=== PATIENT | male | born 1950 | race Caucasian/White ===

== ENCOUNTER 2016-04-16 08:15 | Inpatient (IN) | payer MEDICARE, OTHER ==
--- NOTE | 2016-04-16 09:31 | RAD ---
INDICATION: Weakness. COMPARISON: There are no prior studies available for comparison. TECHNIQUE: A portable view of the chest was obtained. FINDINGS: The heart appears mildly enlarged. There is increased density in the right cardiophrenic angle likely representing a prominent pericardial fat pad although a mass cannot be excluded. No pleural effusion is seen. IMPRESSION: INCREASED DENSITY IN THE RIGHT CARDIOPHRENIC ANGLE LIKELY REPRESENTING A PROMINENT PERICARDIAL FAT PAD ALTHOUGH A MASS CANNOT BE EXCLUDED. RECOMMEND A CT OF THE CHEST WITH CONTRAST FOR FURTHER EVALUATION.
[2016-04-16 09:49] LABS: Hematocrit 41 % (35-47); Mean Corpuscular HGB Conc 32 g/dl (31-36); Mean Corpuscular Hemoglobin 29 pg (27-31); Mean Corpuscular Volume 92 fL (80-97); Mean Platelet Volume 8 um3 (7.4-10.4); Red Blood Count 4.48 10^6/ul (4.0-5.4); Red Cell Distribution Width 16 % (10.5-15); White Blood Count 10.1 10^3/ul (3.5-10.8)
[2016-04-16 09:50] LABS: Add Diff/Slide Review? Slide Review Added; Comments Flag Yes
[2016-04-16 09:53] LABS: Albumin 3.7 g/dL (3.2-5.2); C Reactive Protein 11.02 mg/L (< 5.00); Calcium 9.6 mg/dL (8.6-10.3); EGFR Non-African American 94.8 (>60); Globulin 3.5 g/dL (2-4); Magnesium 2.1 mg/dL (1.9-2.7); Potassium 4.3 mmol/L (3.5-5.0); Total Bilirubin 0.4 mg/dL (0.2-1.0); Total Protein 7.2 g/dL (6.4-8.9)
[2016-04-16 09:56] LABS: Troponin I 0.04 ng/mL (<0.04)
[2016-04-16 10:14] LABS: Urine Bacteria Absent (Absent); Urine Bilirubin Negative (Negative); Urine Glucose Negative (Negative); Urine Nitrite Negative (Negative)
[2016-04-16 10:31] LABS: TSH (Thyroid Stimulating Horm) 1.03 mcIU/mL (0.34-5.60)
--- NOTE | 2016-04-16 10:42 | ED ---
Daniella Ron Janilya, scribed for Austin Victor MD on 04/16/16 at 0828 . HPI Diabetic - HPI Summary HPI Summary: A 65 y/o male came in to [facility] presenting w/ a gradual onset of constant weakness for the past couple days. Pt states he hasn't been feeling well. In addition to weakness, he reports confusion and dizziness. Another complaint is weakness, numbness, and stiffness of legs. Pt is usually sedentary. Pt denies vomiting. Pt thinks that his sugar might be "off". Pt is normally on 4L of O2. Pt is a new resident of [facility]; he's been there for only a week. PMHx HTN, DM, asthma, COPD, hay fever. No PMHx CHF. - History Of Current Complaint Chief Complaint: EDGeneral Time Seen by Provider: 04/16/16 08:19 Hx Obtained From: Patient Onset/Duration: Gradual Onset, Lasting Days, Still Present Timing: Constant Severity Initially: Moderate Severity Currently: Moderate Associated Signs & Symptoms: Negative - Allergies/Home Medications Allergies/Adverse Reactions: Allergies Allergy/AdvReac Type Severity Reaction Status Date / Time Cimetidine Allergy Hives Verified 04/16/16 08:50 Erythromycin Allergy Hives Verified 04/16/16 08:50 Fosinopril Allergy Rash Verified 04/16/16 08:50 Iodine Allergy Rash Verified 04/16/16 08:50 Lisinopril Allergy Rash And Verified 04/16/16 08:50 Itching Penicillin G Allergy Rash Verified 04/16/16 08:50 Sulfa Antibiotics Allergy Hives Verified 04/16/16 08:50 Tomato Allergy Swelling Verified 04/16/16 08:50 ivp dye Allergy Hives Uncoded 04/16/16 08:50 PMH/Surg Hx/FS Hx/Imm Hx Previously Healthy: Yes Endocrine/Hematology History: Reports: Hx Diabetes Cardiovascular History: Reports: Hx Hypertension Denies: Hx Congestive Heart Failure Respiratory History: Reports: Hx Asthma, Hx Chronic Obstructive Pulmonary Disease (COPD) Infectious Disease History: No Infectious Disease History: Denies: Traveled Outside the [place] in Last 30 Days - Family History Known Family History: Positive: Diabetes - mother, Respiratory Disease - PE - mother - Social History Occupation: Retired Lives: At [facility] Smoking Status (MU): Former Smoker Review of Systems Negative: Vomiting Neurological: Other - Stiffness of legs. Confusion and dizziness. Positive: Weakness, Numbness - of legs All Other Systems Reviewed And Are Negative: Yes Physical Exam Triage Information Reviewed: Yes Vital Signs On Initial Exam: Initial Vitals Temp Pulse Resp BP Pulse Ox 98.2 F 88 18 145/87 94 04/16/16 08:16 04/16/16 08:16 04/16/16 08:16 04/16/16 08:16 04/16/16 08:16 Vital Signs Reviewed: Yes Appearance: Positive: Well-Appearing, No Pain Distress Skin: Positive: Warm, Skin Color Reflects Adequate Perfusion, Dry Head/Face: Positive: Normal Head/Face Inspection Eyes: Positive: EOMI, EDMUND ENT: Positive: Normal ENT inspection Neck: Positive: Supple, Nontender Respiratory/Lung Sounds: Positive: Clear to Auscultation, Breath Sounds Present , Wheezes - Occasional, no acute distress. Cardiovascular: Positive: RRR Abdomen Description: Positive: Nontender, Soft Bowel Sounds: Positive: Present Musculoskeletal: Positive: Normal, Strength/ROM Intact, Other - Erythema and pedal edema bilaterally. Neurological: Positive: Normal, Sensory/Motor Intact, Alert, Oriented to Person Place, Time Psychiatric: Positive: Affect/Mood Appropriate Diagnostics - Vital Signs Vital Signs Temp Pulse Resp BP Pulse Ox 04/16/16 08:16 98.2 F 88 18 145/87 94 - Laboratory Lab Results: Lab Results 04/16/16 04/16/16 04/16/16 Range/Units 09:25 09:25 09:25 WBC 10.1 (3.5-10.8) 10^3/ul RBC 4.48 (4.0-5.4) 10^6/ul Hgb 13.0 (12.0-16.0) g/dl Hct 41 (35-47) % MCV 92 (80-97) fL MCH 29 (27-31) pg MCHC 32 (31-36) g/dl RDW 16 H (10.5-15) % Plt Count 183 (150-450) 10^3/ul MPV 8 (7.4-10.4) um3 Neut % (Auto) 83.0 (38-83) % Lymph % (Auto) 9.0 L (25-47) % [place] % (Auto) 5.8 (1-9) % Eos % (Auto) 1.0 (0-6) % Baso % (Auto) 1.2 (0-2) % Absolute Neuts (auto) 8.4 H (1.5-7.7) 10^3/ul Absolute Lymphs (auto) 0.9 L (1.0-4.8) 10^3/ul Absolute Monos (auto) 0.6 (0-0.8) 10^3/ul Absolute Eos (auto) 0.1 (0-0.6) 10^3/ul Absolute Basos (auto) 0.1 (0-0.2) 10^3/ul Absolute Nucleated RBC 0 10^3/ul Nucleated RBC % 0 INR (Anticoag Therapy) 0.94 (0.89-1.11) APTT 27.5 (26.0-36.3) seconds D-Dimer, Quantitative 336 H (Less Than 230) ng/mL Sodium 138 (133-145) mmol/L Potassium 4.3 (3.5-5.0) mmol/L Chloride 91 L (101-111) mmol/L Carbon Dioxide 46 H* (22-32) mmol/L Anion Gap 1 L (2-11) mmol/L BUN 12 (6-24) mg/dL Creatinine 0.63 (0.51-0.95) mg/dL Est GFR ( Amer) 122.0 (>60) Est GFR (Non-Af Amer) 94.8 (>60) BUN/Creatinine Ratio 19.0 (8-20) Glucose 123 H (70-100) mg/dL Lactic Acid (0.5-2.0) mmol/L Calcium 9.6 (8.6-10.3) mg/dL Magnesium 2.1 (1.9-2.7) mg/dL Total Bilirubin 0.40 (0.2-1.0) mg/dL AST 15 (13-39) U/L ALT 17 (7-52) U/L Alkaline Phosphatase 80 (34-104) U/L Total Creatine Kinase 72 (10-223) U/L CK-MB (CK-2) 6.3 (0.6-6.3) ng/mL Troponin I 0.04 H* (<0.04) ng/mL C-Reactive Protein 11.02 H (< 5.00) mg/L B-Natriuretic Peptide ( - 100) pg/mL Total Protein 7.2 (6.4-8.9) g/dL Albumin 3.7 (3.2-5.2) g/dL Globulin 3.5 (2-4) g/dL Albumin/Globulin Ratio 1.1 (1-3) Lipase 17 (11.0-82.0) U/L TSH 1.03 (0.34-5.60) mcIU/mL Urine Color Urine Appearance Urine pH (5-9) Ur Specific [place] (1.010-1.030) Urine Protein (Negative) Urine Ketones (Negative) Urine Blood (Negative) Urine Nitrate (Negative) Urine Bilirubin (Negative) Urine Urobilinogen (Negative) Ur Leukocyte Esterase (Negative) Urine WBC (Auto) (Absent) Urine RBC (Auto) (Absent) Ur Squamous Epith Cells (Absent) Urine Bacteria (Absent) Urine Glucose (Negative) Urine Ascorbic Acid (Negative) 04/16/16 04/16/16 04/16/16 Range/Units 09:25 09:25 10:00 WBC (3.5-10.8) 10^3/ul RBC (4.0-5.4) 10^6/ul Hgb (12.0-16.0) g/dl Hct (35-47) % MCV (80-97) fL MCH (27-31) pg MCHC (31-36) g/dl RDW (10.5-15) % Plt Count (150-450) 10^3/ul MPV (7.4-10.4) um3 Neut % (Auto) (38-83) % Lymph % (Auto) (25-47) % [place] % (Auto) (1-9) % Eos % (Auto) (0-6) % Baso % (Auto) (0-2) % Absolute Neuts (auto) (1.5-7.7) 10^3/ul Absolute Lymphs (auto) (1.0-4.8) 10^3/ul Absolute Monos (auto) (0-0.8) 10^3/ul Absolute Eos (auto) (0-0.6) 10^3/ul Absolute Basos (auto) (0-0.2) 10^3/ul Absolute Nucleated RBC 10^3/ul Nucleated RBC % INR (Anticoag Therapy) (0.89-1.11) APTT (26.0-36.3) seconds D-Dimer, Quantitative (Less Than 230) ng/mL Sodium (133-145) mmol/L Potassium (3.5-5.0) mmol/L Chloride (101-111) mmol/L Carbon Dioxide (22-32) mmol/L Anion Gap (2-11) mmol/L BUN (6-24) mg/dL Creatinine (0.51-0.95) mg/dL Est GFR ( Amer) (>60) Est GFR (Non-Af Amer) (>60) BUN/Creatinine Ratio (8-20) Glucose (70-100) mg/dL Lactic Acid 1.0 (0.5-2.0) mmol/L Calcium (8.6-10.3) mg/dL Magnesium (1.9-2.7) mg/dL Total Bilirubin (0.2-1.0) mg/dL AST (13-39) U/L ALT (7-52) U/L Alkaline Phosphatase (34-104) U/L Total Creatine Kinase (10-223) U/L CK-MB (CK-2) (0.6-6.3) ng/mL Troponin I (<0.04) ng/mL C-Reactive Protein (< 5.00) mg/L B-Natriuretic Peptide 133 H ( - 100) pg/mL Total Protein (6.4-8.9) g/dL Albumin (3.2-5.2) g/dL Globulin (2-4) g/dL Albumin/Globulin Ratio (1-3) Lipase (11.0-82.0) U/L TSH (0.34-5.60) mcIU/mL Urine Color Yellow Urine Appearance Clear Urine pH 7.0 (5-9) Ur Specific [place] 1.020 (1.010-1.030) Urine Protein 2+(100 mg/dl) H (Negative) Urine Ketones Negative (Negative) Urine Blood Negative (Negative) Urine Nitrate Negative (Negative) Urine Bilirubin Negative (Negative) Urine Urobilinogen Negative (Negative) Ur Leukocyte Esterase Negative (Negative) Urine WBC (Auto) Absent (Absent) Urine RBC (Auto) Absent (Absent) Ur Squamous Epith Cells Present H (Absent) Urine Bacteria Absent (Absent) Urine Glucose Negative (Negative) Urine Ascorbic Acid * H (Negative) Result Diagrams: 04/16/16 09:25 04/16/16 09:25 Lab Statement: Any lab studies that have been ordered have been reviewed, and results considered in the medical decision making process. Diabetic Course/Dx - Course Assessment/Plan: ADMIT HOSPITALIST STABLE - Diagnoses Provider Diagnoses: Weakness, COPD (chronic obstructive pulmonary disease), Troponin level elevated Discharge - Discharge Plan Condition: Stable Disposition: ADMITTED TO [facility] Referrals: No Primary Care Phys,NOPCP [Primary Care Provider] - The documentation as recorded by the Daniella montes Janilya accurately reflects the service I personally performed and the decisions made by me, Austin Victor MD.
[2016-04-16] MEDS ORDERED: Ondansetron INJ* 2 MG/ML VIAL IV PRN (11:14)
[2016-04-16] MEDS ORDERED: Dextrose 50% Syringe 50 ML* 25 GM/50 ML SYRINGE IV PUSH PRN (11:14)
[2016-04-16] MEDS ORDERED: Albuterol 2.5 MG/3 ML NEB.SOL* (0.083%) INH PRN (11:14)
[2016-04-16] MEDS ORDERED: Bisacodyl EC TAB* 5 MG PO PRN (11:17)
[2016-04-16] MEDS ORDERED: Bisacodyl SUPP* 10 MG SUPP PR PRN (11:17)
[2016-04-16] MEDS ORDERED: Spiriva Inhaler DEVICE* 1 EACH DEVICE INH ONE (12:00)
[2016-04-16] MEDS: Insulin LISPRO* 1 UNITS UNIT SUBCUT SCH ×2 (12:29→18:01)
[2016-04-16] MEDS: Heparin VIAL(*) 5000 UNITS/ML VIAL (FIVE THOUSAND) SUBCUT SCH ×2 (12:57→20:48)
[2016-04-16 13:57] LABS: PCO2 Arterial 86 mmHg (35-45)
--- NOTE | 2016-04-16 17:04 | HP ---
ATTENDING PHYSICIAN ADDENDUM NOW INCLUDED ON THIS REPORT HISTORY AND PHYSICAL: DATE OF ADMISSION: 04/16/16 PRIMARY CARE PROVIDER: [facility]. ATTENDING PHYSICIAN WHILE IN THE HOSPITAL: Dr. Jessica Miranda *(report dictated by Reynold Rodríguez NP). CHIEF COMPLAINT: 1. Not feeling well. 2. Dizziness. 3. Shortness of breath. HISTORY OF PRESENTING ILLNESS: Mr. Lam is a 65-year-old male patient. He has a history of hyperlipidemia, hypertension, diabetes, GERD, and a history of COPD. He apparently has been at [facility] now for the last 10 days. He recently was transferred there from [facility] in [place]. He went to [facility] from [place]. [place] went to the [place] from [facility] in [place] and before Assisted Living, he was in [place]. He states that he has been in and out of the hospital for the last several months. He spent 3 weeks in the [place] most recently. He comes in today because he woke up sweating around 4 in the morning. He states that he just was not feeling well. He was aching in his legs. He was aching in his abdomen. He felt short of breath. He felt dizzy and lightheaded. He says he stood up and felt like he was going to faint but he did not. He says that he felt short of breath, it got progressively worse over the couple of hours and he requested to come into the hospital to be evaluated. He said yesterday he was feeling well, he has not had any other signs like chest pain. There has been no cough recently, no runny nose, no fevers or chills. He denies having any abdominal discomfort now but he is feeling better. He denied having any chest discomfort. He denied having any fevers or chills. He states he just ached all over today starting early this morning and getting progressively worse over the last couple of hours. So he came into the ER. It was noted according to the patient that his O2 levels were very low. He appeared to be hypoxic according to him. In addition to that, it was also noted that his oxygen was at 3 L and he normally was 4 which is down from 10 L. The patient requested to come into the hospital. He was evaluated here in the ED. It was noted that his troponin was elevated and his CO2 was markedly elevated. Hospitalist service was asked to evaluate for admission. PAST MEDICAL HISTORY: Significant for: 1. Hyperlipidemia. 2. Diabetes. 3. Hypertension. 4. GERD. 5. COPD. PAST SURGICAL HISTORY: 1. He has had a cervical laminectomy. 2. Hernia repair. 3. Appendectomy. 4. Tonsillectomy. HOME MEDICATIONS: Include: 1. Albuterol 1 neb every 4 hours as needed. 2. Tylenol 650 mg p.o. every 6 hours as needed. 3. Dulcolax 10 mg p.o. daily as needed. 4. Chloraseptic lozenges 1 lozenge t.i.d. as needed. 5. Dulcolax suppository 10 mg p.r. daily as needed. 6. Lantus 48 units subcu at bedtime. 7. Heparin 5000 unit subcu q. 8 hours. 8. Lasix 80 mg daily. 9. Metoprolol 37.5 mg daily. 10. Miconazole, 1 application topically b.i.d. 11. Abilify 20 mg daily. 12. Aspirin 81 mg daily. 13. Symbicort 2 puffs inhaled b.i.d. 14. Colace 100 mg p.o. b.i.d. 15. Multivitamin 1 tablet p.o. daily., 16. Prilosec 40 mg daily. 17. Spiriva 1 capsule inhaled daily. 18. Crestor 20 mg daily. ALLERGIES: His allergies to medications include CIMETIDINE, ERYTHROMYCIN, FOSINOPRIL, IODINE, LISINOPRIL, PENICILLIN, SULFA, TOMATO and IV DYE. FAMILY HISTORY: His mother had heart failure. His father had a history of cancer. SOCIAL HISTORY: He is a former smoker. He quit about a month ago. He was smoking about 3 packs a day. He lives in [facility]. Surrogate decision maker is his brother. REVIEW OF SYSTEMS: There is no documented fever. He denied any significant weight change. There was no double vision. He denies having any ear discharge. There is no rhinorrhea, no sore throat. No thyroid enlargement. He denied any chest pain. There was shortness of breath. There was some abdominal discomfort but no nausea or vomiting. There was no dysuria, no frequency, no loss of consciousness, no pruritus, and no skin ulcerations. Review of 14 systems completed. All others were negative. PHYSICAL EXAMINATION GENERAL: Mr. Lam is a 65-year-old male patient. He appears to be chronically ill- appearing. He is sitting in the ER stretcher. He does not appear to be in any acute respiratory distress. VITAL SIGNS: Reveals blood pressure 145/69 with a pulse of 86, respirations were 22, O2 sat 95%, temperature 98.2. HEENT: Head: Atraumatic and normocephalic. Eyes: EOMs intact. Sclerae intact , not pale. Throat: Oral mucosa appears to be dry. No oropharyngeal erythema. NECK: Supple. LUNGS: Diminished but there was no wheezes, rales or rhonchi. HEART: S1, S2. Regular rate and rhythm. No murmurs, rubs or gallops. ABDOMEN: Soft, flat, nontender. He did have ecchymosis noted to the abdomen from heparin shots. EXTREMITIES: Pulses were 2+ throughout. He had no peripheral edema. He was able to move all 4 extremities with 5/5 strength. NEUROLOGIC: He is awake, he is alert. He is oriented x3. His tongue is midline. His organ tuner were equal. He had no gross focal deficits. SKIN: Intact. DIAGNOSTIC STUDIES/LAB DATA: Labs today revealed WBC of 10.1, RBC of 4.48, hemoglobin of 13.0, hematocrit of 41, and platelet count of 183. His INR was 0.94, PTT was 27.5. D-dimer is 336. Sodium was 138, potassium was 4.3, chloride of 91, his bicarb was 46, BUN was 12 , his creatinine was 0.63, his glucose was 123. His lactate was 1.0, calcium 9.6, mag was 2.1, total bili 0.4, AST 15, ALT 17, alk phos 80. CK was 72, CK- MB was 6.3. Troponin was 0.04. CRP 11. Albumin was 3.7. TSH was 1.03. Urine was obtained. It showed 2+ protein. He had a chest x-ray which showed increased density in the right cardiophrenic angle likely representing a prominent pericardial fat pad although mass cannot be excluded. Recommended CT of the chest with contrast for further evaluation. He had a EKG obtained today which showed right bundle branch block, rate of 82, no ST elevations or T-wave inversions were noted. Old medical records were reviewed. ASSESSMENT AND PLAN: Mr. Lam is a 65-year-old male patient with multiple medical problems coming into the ER today with complaints of pain, shortness of breath and abdominal discomfort. On evaluation it was felt that he had indeterminate troponin, his D-dimer was mildly elevated as well. Hospitalist service was asked to evaluate for admission. He is admitted under observation status for: 1. Shortness of breath and weakness. I suspect that his oxygen being down at 3 L may have been the culprit. The patient does state that his oxygen level is a little low which certainly could explain him feeling short of breath, that could cause him demand ischemia, troponin is elevated which I think is probably most likely the culprit. I think minimally we need to cycle his troponins. He may need a sleep apnea testing and study in the outpatient setting. He may benefit from positive pressure at night to help him reduce the amount of hypoxia and strain on his heart but for tonight, we will monitor him on telemetry and cycle his troponins and keep him on the 4 L and we will continue to follow. I will check his orthostatic blood pressures as well. 2. Indeterminate D-dimer. Again, I think that the pulmonary embolism is likely. He is on heparin subtherapeutic q. 8 hours for DVT prevention. He has an allergy to IV dye. If he has any more episodes of hypoxia, we can consider getting a V/Q scan tomorrow but we will monitor for the time being. He is not tachycardic but shortness of breath is now gone and I think we can monitor for the time being. 3. Question of mass on chest x-ray. Again, this could be worked up in the outpatient setting. He would need a CT with contrast. Again, he will need to be premedicated for this and this could be done in the outpatient setting and he needs to be noted by the [facility] and the primary. 4. Hyperlipidemia. Continue statin therapy. 5. Hypertension. Continue his meds prescribed. 6. Elevated CO2 level. It is probably related to combination of his COPD. In addition to this, he was on a pretty high dose of diuretics. I have cut back on his diuretics to 40 mg from 80 and we will monitor. 7. Chronic obstructive pulmonary disease. Continue his Spiriva, Symbicort and p.r.n. nebs. 8. Diabetes. He is on lispro sliding scale and Lantus. 9. Gastroesophageal reflux disease. Continue PPI therapy. 10. DVT prophylaxis. We will continue with the heparin subcu q. 8 hours. 11. Code status. Full code. 12. Fluid, electrolytes, and nutrition. He can have a heart healthy diet. TIME SPENT: Time spent on this admission was 60 minutes, greater than half the time was spent [id number] with the patient, obtaining my history of physical; the other half time was spent going over the plan of care with the patient and implementing plan of care. I did discuss the plan of care with my attending Dr. Miranda; she is in agreement. I am also trying to get records from the [facility] to see what happened when he was last there. We are trying to get records from the [facility] to see what happened when he was last there. REYNOLD RODRÍGUEZ NP ADDENDUM: Alex Lam is a 65-year-old male with history of severe COPD, on oxygen at 4 L , who had been in and out of medical institutions for COPD exacerbations and in rehabs for the past several weeks. Most recently, he had been in [facility] for 10 days. He noted that his oxygen was not turned on at the right level at [facility]. He felt weak during that time and requested to come in to the ED for evaluation. His troponin is mildly elevated. It is most likely due to hypoxemia. He never had chest pain. He is going to be placed on overnight observation. He also appeared slightly prerenal and his Lasix was going to be held for today. For further details of the patient's presentation and plan, please see history and physical dictated by Reynold Rodríguez on 04/16/16 with which I agree. JESSICA MIRANDA MD CC: [facility] * [id number]/CPS #: [id number]/CPS #: [id number] [facility]THAMPTON HOSPITALBranden
--- NOTE | 2016-04-16 17:37 | HP ---
HISTORY AND PHYSICAL:* ADDENDUM: Alex Lam is a 65-year-old male with history of severe COPD, on oxygen at 4 L, who had been in and out of medical institutions for COPD exacerbations and in rehabs for the past several weeks. Most recently, he had been in [facility] for 10 days. He noted that his oxygen was not turned on at the right level at [facility]. He felt weak during that time and requested to come in to the ED for evaluation. His troponin is mildly elevated. It is most likely due to hypoxemia. He never had chest pain. He is going to be placed on overnight observation. He also appeared slightly prerenal and his Lasix was going to be held for today. For further details of the patient's presentation and plan, please see history and physical dictated by Reynold Rodríguez on 04/16/16 with which I agree. [id number]/[facility] #: [id number] MTDD
[2016-04-16] MEDS: ARIPiprazole TAB* 20 MG PO SCH (18:01)
[2016-04-16] MEDS: Docusate CAP* 100 MG PO SCH (20:46)
[2016-04-16] MEDS: Insulin GLARGINE(*) 1 UNITS UNIT SUBCUT SCH (20:48)
[2016-04-16] MEDS: Metoprolol Tartrate TAB* 25 MG PO SCH (20:48)
[2016-04-16] MEDS: Mometasone/Formoter 200/5 MDI INH SCH (20:56)
[2016-04-17] MEDS: Acetaminophen TAB* 325 MG PO PRN ×2 (00:44→07:47)
[2016-04-17] MEDS: Heparin VIAL(*) 5000 UNITS/ML VIAL (FIVE THOUSAND) SUBCUT SCH ×3 (05:27→20:59)
[2016-04-17 06:13] LABS: Hematocrit 42 % (42-52); Mean Corpuscular HGB Conc 31 g/dl (31-36); Mean Corpuscular Hemoglobin 29 pg (27-31); Mean Corpuscular Volume 93 fL (80-94); Mean Platelet Volume 9 um3 (7.4-10.4); Red Blood Count 4.46 10^6/ul (4.0-5.4); Red Cell Distribution Width 16 % (10.5-15); White Blood Count 9.2 10^3/ul (3.5-10.8)
[2016-04-17 06:19] LABS: Add Diff/Slide Review? Slide Review Added; Comments Flag Yes
[2016-04-17 06:28] LABS: BUN/Creatinine Ratio 19.7 (8-20); Calcium 9.7 mg/dL (8.6-10.3); EGFR African American 155.8 (>60); EGFR Non-African American 121.1 (>60); Potassium 4.8 mmol/L (3.5-5.0)
[2016-04-17] MEDS: Tiotropium CAP.INH* CAP.INH/18 MCG INH SCH (08:18)
[2016-04-17] MEDS: Mometasone/Formoter 200/5 MDI INH SCH ×2 (08:18→21:43)
[2016-04-17] MEDS: Metoprolol Tartrate TAB* 25 MG PO SCH ×2 (08:53→21:00)
[2016-04-17] MEDS: Insulin LISPRO* 1 UNITS UNIT SUBCUT SCH ×3 (08:53→17:25)
[2016-04-17] MEDS: Atorvastatin* 40 MG TAB PO SCH (08:53)
[2016-04-17] MEDS: Omeprazole CAP* 20 MG PO SCH (08:53)
[2016-04-17] MEDS: Docusate CAP* 100 MG PO SCH ×2 (08:54→20:59)
[2016-04-17] MEDS: Aspirin EC Low Dose* 81 MG TAB.EC PO SCH (08:54)
[2016-04-17] MEDS: Furosemide TAB* 40 MG PO SCH (08:54)
[2016-04-17] MEDS: ARIPiprazole TAB* 20 MG PO SCH (17:25)
[2016-04-17] MEDS: predniSONE TAB* 50 MG PO SCH ×2 (17:25→23:50)
--- NOTE | 2016-04-17 18:30 | PN ---
Subjective Date of Service: 04/17/16 Interval History: This is a 65 yo gentleman with severe COPD, schizoaffective disorder, h/o PE with IVC filter in place, IDDM, GERD, HTN, HLD who was recently discharged from a prolonged hospital stay at the [facility] to [facility]. Patient was admitted last night with complaints of SOB and dizziness. Today, patient reports that these symptoms have been present for nearly 1 month but have been getting progressively worse so he decided to mention them yesterday. He notes symptoms are worse with activity but still present at rest. Records arrived today from [facility] which were reviewed in detail. Patient required an ICU stay for acute respiratory failure secondary to COPD/CHF exacerbation. He was not intubated, but required rescue BiPAP. His O2 requirements prior to hospital stay were ~4L, and at time of admission (04/10/16 ) were assessed at 6L at rest and 10L with activity. This was thought to represent his new baseline. He was utilizing BiPAP at night with settings of 16 /6 that was recommended to be continued. He does have a h/o prior PE not currently anticoagulated d/t h/o pulmonary hemorrhage. He has an IVC filter in place. CTA was completed during that hospital stay that was negative for PE. There was also mention of severe LVH with diastolic failure, no echo report was sent. Serum bicarb was noted to be consistently 44-48 on labs. Today, nursing assessed orthostatic vitals signs. Patient complained of severe dizziness with this. O2 sats dropped in to mid 70s, it is unclear what his rate of supp O2 was at that time. No hypotension or tachycardia noted. Objective Active Medications: Acetaminophen (Tylenol Tab*) 650 mg PO Q4H PRN PRN Reason: FEVER/PAIN Last Admin: 04/17/16 07:47 Dose: 650 mg Albuterol (Ventolin 2.5 Mg/3 Ml Neb.Alecia*) 2.5 mg INH Q2H PRN PRN Reason: SOB/WHEEZING Aripiprazole (Abilify Tab*) 20 mg PO QPM [facility] Last Admin: 04/17/16 17:25 Dose: 20 mg Aspirin (Aspirin Ec Low Dose*) 81 mg PO DAILY [facility] Last Admin: 04/17/16 08:54 Dose: 81 mg Atorvastatin Calcium (Lipitor*) 40 mg PO DAILY [facility] Last Admin: 04/17/16 08:53 Dose: 40 mg Bisacodyl (Dulcolax Ec Tab*) 10 mg PO DAILY PRN PRN Reason: CONSTIPATION Bisacodyl (Dulcolax Supp*) 10 mg AK DAILY PRN PRN Reason: CONSTIPATION Dextrose (D50w Syringe 50 Ml*) 12.5 gm IV PUSH .FOR FS < 60 - SS PRN PRN Reason: FS < 60 Diphenhydramine HCl (Benadryl Po*) 50 mg PO ONCE ONE Stop: 04/18/16 06:01 Docusate Sodium (Colace Cap*) 100 mg PO BID [facility] Last Admin: 04/17/16 08:54 Dose: 100 mg Furosemide (Lasix Tab*) 40 mg PO DAILY [facility] Last Admin: 04/17/16 08:54 Dose: 40 mg Heparin Sodium (Porcine) (Heparin Vial(*)) 5,000 units SUBCUT Q8HR [facility] Last Admin: 04/17/16 14:17 Dose: 5,000 units Insulin Glargine (Lantus(*)) 48 units SUBCUT BEDTIME [facility] Last Admin: 04/16/16 20:48 Dose: 48 unit Insulin Human Lispro (Humalog*) 0 units SUBCUT AC [facility] PRN Reason: Protocol Last Admin: 04/17/16 17:25 Dose: 3 units Metoprolol Tartrate (Lopressor Tab*) 37.5 mg PO BID [facility] Last Admin: 04/17/16 08:53 Dose: 37.5 mg Mometasone Furoate/Formoterol Fumar (Dulera 200/5 Mdi*) 2 puff INH BID [facility] PRN Reason: Protocol Last Admin: 04/17/16 08:18 Dose: 2 puff Omeprazole (Prilosec Cap*) 40 mg PO DAILY [facility] Last Admin: 04/17/16 08:53 Dose: 40 mg Ondansetron HCl (Zofran Inj*) 4 mg IV Q6H PRN PRN Reason: NAUSEA Last Admin: 04/17/16 00:41 Dose: 4 mg Prednisone (Deltasone Tab*) 50 mg PO 1800,0000,0600 [facility] Stop: 04/18/16 06:01 Last Admin: 04/17/16 17:25 Dose: 50 mg Tiotropium Perkins (Spiriva Cap.Inh*) 1 cap INH DAILY [facility] Last Admin: 04/17/16 08:18 Dose: 1 cap.inh Vital Signs: Temp Pulse Resp BP Pulse Ox 97.4 F 75 42 137/54 83 04/17/16 08:30 04/17/16 16:15 04/17/16 08:30 04/17/16 16:15 04/17/16 10:43 Appearance: Well appearing but slightly bizarre affect in NAD Neck: NL Appearance and Movements; NL JVP Respiratory: Symmetrical Chest Expansion and Respiratory Effort, Clear to Auscultation Cardiovascular: NL Sounds; No Murmurs; No JVD, RRR Abdominal: NL Sounds; No Tenderness; No Distention Extremities: - - trace to 1+ LE edema Skin: No Rash or Ulcers Neurological: Alert and Oriented x 3 Result Diagrams: 04/17/16 05:48 04/17/16 05:48 Additional Lab and Data: . Diagnostic Imaging: CXR - density at R cardiophrenic angle, ?prominent fat pad. Assess/Plan/Problems-Billing Assessment: This is a 65 yo gentleman with schizoaffective d/o, severe COPD, diastolic HF, h /o PE with IVC filter inplace, IDDM, GERD, HTN, HLD who presents with complaints of dizziness and shortness of breath. - Patient Problems (1) Dizziness Comment: Likely due to hypoxia Concern for possible PE given his history He reports h/o hives with IV contrast, with premedicate for CTA tomorrow Given h/o pulmonary hemorrhage and relative stability at this time, will not empirically treat (2) COPD (chronic obstructive pulmonary disease) Comment: This does not seem to represent an acute exacerbation, but he has severe disease at baseline Recommend 6L supp O2 at rest and 10L for activity Requested pulm consult Cont inhaled therapies (3) Chronic respiratory failure Comment: Hypercarbic and hypoxic secondary to COPD Review of [facility] records show serum HCO3 consistently at 44-48, he is fully compensated at this time and this is likely his chronic state Ordered nighttime BiPAP at recommended settings of 16/6 (4) Chronic diastolic HF (heart failure) Comment: No evidence of acute exacerbation Mention of severe LVH on prior records Will obtain echo to establish baseline Cont home diuretic dose (5) IDDM (insulin dependent diabetes mellitus) Comment: Last HgbA1c 7.7% Cont home Lantus dose and additional SS Humalog coverage if necessary (6) History of pulmonary embolism Comment: IVC filter in place Also has a h/o pulmonary hemorrhage CTA pending for tomorrow, premedicating for h/o hives with IV contrast (7) Abnormal chest xray Comment: Density noted at R cardiac border CTA will help to define this further (8) Demand ischemia Comment: Mildly elevated trop, likely due to hypoxia (9) HTN (hypertension) Comment: Normotensive (10) HLD (hyperlipidemia) Status and Disposition: Patient requires continued hospital stay. Converted to inpatient. Pending CTA and pulm consult for tomorrow. Anticipate possible discharge in 1-2 days. If his stay at [facility] is planned to be semi-permanent, he will require established pulm and likely cardiac care locally.
[2016-04-17] MEDS: Insulin GLARGINE(*) 1 UNITS UNIT SUBCUT SCH (20:59)
[2016-04-18] MEDS: predniSONE TAB* 50 MG PO SCH (05:30)
[2016-04-18] MEDS: Heparin VIAL(*) 5000 UNITS/ML VIAL (FIVE THOUSAND) SUBCUT SCH ×3 (05:30→20:54)
[2016-04-18 05:41] LABS: BUN/Creatinine Ratio 28.6 (8-20); Calcium 9.6 mg/dL (8.6-10.3); EGFR African American 164.4 (>60); EGFR Non-African American 127.8 (>60); Potassium 4.7 mmol/L (3.5-5.0)
[2016-04-18] MEDS ORDERED: diPHENhydraMINE PO* 50 MG PO ONE (06:00)
[2016-04-18] MEDS: Atorvastatin* 40 MG TAB PO SCH (08:12)
[2016-04-18] MEDS: Aspirin EC Low Dose* 81 MG TAB.EC PO SCH (08:12)
[2016-04-18] MEDS: Docusate CAP* 100 MG PO SCH ×2 (08:12→20:54)
[2016-04-18] MEDS: Metoprolol Tartrate TAB* 25 MG PO SCH ×2 (08:12→20:54)
[2016-04-18] MEDS: Furosemide TAB* 40 MG PO SCH (08:12)
[2016-04-18] MEDS: Omeprazole CAP* 20 MG PO SCH (08:13)
[2016-04-18] MEDS ORDERED: Iodixanol* (CONTRAST) 320 MG/ML 100 ML SDV IV ONE (08:38)
[2016-04-18] MEDS: Insulin LISPRO* 1 UNITS UNIT SUBCUT SCH ×3 (09:10→17:27)
[2016-04-18] MEDS: Mometasone/Formoter 200/5 MDI INH SCH ×2 (09:31→20:30)
[2016-04-18] MEDS: Tiotropium CAP.INH* CAP.INH/18 MCG INH SCH (09:31)
--- NOTE | 2016-04-18 09:35 | RAD ---
INDICATION: Shortness of breath evaluate for pulmonary metabolism. COMPARISON: Comparison is made with a prior chest x-ray study from April 16, 2016. TECHNIQUE: A CT angiogram of the chest was performed with intravenous following intravenous injection of 91 ml of Visipaque 320 nonionic contrast. Contiguous axial sections were obtained from the lung apices through the lung bases. Images were reconstructed in the coronal and sagittal planes. FINDINGS: There is relatively homogeneous opacification of the pulmonary arteries. No intraluminal filling defect or pulmonary embolism is seen. The exam is slightly limited due to motion artifact present at the left lung base in the region of the basilar segmental arteries. The heart is moderately enlarged. No pericardial effusion is present. There is a dissecting aneurysm of the descending thoracic aorta beginning just beyond the aortic arch and extending at least to the level of the upper abdomen and is not completely imaged on this study. The false lumen is located posterior laterally and opacifies with less dense contrast. The celiac and superior mesenteric arteries appear to arise from the true lumen. No significant enlarged mediastinal or hilar lymph nodes are seen. There is a prominent pericardial fat-pad present at the anterior right lung base which accounts for the area of increased density in the right cardiophrenic angle noted on the prior chest x-ray study. There is diffuse prominence of the interstitial markings and a small dependent bilateral lower lobe infiltrates. No pleural effusion or pneumothorax is seen. There is mild to moderate centrilobular emphysematous change. Images of the upper abdomen demonstrate a 3.3 cm cyst partially visualized arising from the upper pole of the right kidney. Incidental note is made of bilateral gynecomastia. No significant focal osseous abnormality is seen. The results of this exam were called to referring clinician. IMPRESSION: 1. 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 RECOMMEND A CT ANGIOGRAM OF THE ABDOMEN AND PELVIS TO FURTHER CHARACTERIZE THIS ABNORMALITY. 2. SLIGHTLY LIMITED EXAM, NO EVIDENCE FOR PULMONARY EMBOLISM. 3. SMALL DEPENDENT BILATERAL LOWER LOBE INFILTRATES MOST CONSISTENT WITH SUBSEGMENTAL ATELECTASIS.
[2016-04-18] MEDS ORDERED: Iodixanol 320 (CONTRAST) 100 ML SDV IV ONE (09:59)
--- NOTE | 2016-04-18 10:26 | CONS ---
PULMONARY CONSULTATION REPORT: DATE OF CONSULT: 04/18/16 REASON FOR CONSULT: Evaluation of COPD. CONSULTATION REQUESTED BY: DEE Black HISTORY OF PRESENT ILLNESS: The patient is a 65-year-old obese male with history of severe COPD, recurrent hospitalizations, O2 dependent, schizoaffective disorder, history of PE, status post IVC filter placement, insulin-dependent diabetes mellitus, GERD, hypertension, hyperlipidemia. The patient had recent prolonged hospitalization in [facility], and was subsequently transferred to [facility]. The patient had multiple hospitalizations prior to that. The patient was recently managed in ICU for COPD and CHF exacerbation. The patient was managed with noninvasive ventilation. His O2 requirements have increased on just that hospitalization, and he has been needing 6 L at rest and 10 L with activity. The patient has been having shortness of breath over the past month which has been stable. The patient was concerned about his low oxygen level and decided to come into the hospital for further evaluation. The patient was noted to have [id number] hypercapnic and hypoxemic respiratory failure. The patient was also noted to have elevated troponins and mildly elevated D-dimer. The patient has history of PE and had IVC filter placement. He was not a candidate for anticoagulation due to history of pulmonary hemorrhage in the past. The patient had recent CTA during hospitalization [facility] which was negative for acute pulmonary embolism. I do not have access to those records. However, there was no mention of lung mass. The patient was also noted to have severe left ventricular hypertrophy and diastolic heart failure. The patient reports stable symptoms since admission. He has not been using his BiPAP currently. The patient was seen and examined at bedside earlier this morning. The patient was lying flat in bed and was not tachypneic. He was noted to have no leukocytosis with significantly elevated CO2. His Lasix dose was decreased from 80 to 40 mg. PAST MEDICAL HISTORY: 1. Hyperlipidemia. 2. Diabetes. 3. Hypertension. 4. GERD. 5. COPD. PAST SURGICAL HISTORY: 1. Cervical laminectomy. 2. Hernia repair. 3. Appendectomy. 4. Tonsillectomy. MEDICATIONS: At home: 1. Albuterol. 2. Tylenol. 3. Dulcolax. 4. Chloraseptic. 5. Lantus. 6. Heparin. 7. Lasix. 8. Metoprolol. 9. Miconazole. 10. Abilify. 11. Aspirin. 12. Symbicort. 13. Colace. 14. Multivitamin. 15. Prilosec. 16. Spiriva. 17. Crestor. ALLERGIES: 1. CIMETIDINE. 2. ERYTHROMYCIN. 3. FOSINOPRIL. 4. IODINE. 5. LISINOPRIL. 6. PENICILLIN. 7. SULFA. 8. TOMATO. 9. IV DYE. FAMILY HISTORY: Mother had heart failure. Father had history of malignancy. SOCIAL HISTORY: Former smoker, quit two months ago according to the patient. He was smoking three packs per day prior to that. He is currently residing in [facility] [place]. REVIEW OF SYSTEMS: Fourteen systems were reviewed and as per HPI. PHYSICAL EXAM: The patient is lying flat in bed in no apparent distress, alert , awake, and oriented x3. Vital Signs: Temperature 98.6, heart rate 68 beats per minute, respiratory rate 18 per minute, O2 sat 97% on 10 L, blood pressure 117/51. HEENT: Pupils equal, reactive to light. Mucous membranes moist. Respiratory: Symmetrical chest expansion and effort. No wheezing. Clear to auscultation. Cardiovascular: S1, S2 present. No JVD. Abdomen: Obese, nontender, nondistended. Extremities: 1+ edema bilaterally. Skin: Chronic changes in the lower extremities. No bruises other than on abdomen from heparin injections. Neurologic: Alert, awake, and oriented x3. No focal deficits. DIAGNOSTIC STUDIES/LAB DATA: WBC count 9.2, hemoglobin 13, hematocrit 42, platelet count 185. D-dimer slightly elevated at 336. Sodium 137, potassium 4.7, chloride 92, bicarb 45, BUN 18, creatinine 0.63, calcium 9.6. Blood gas analysis showed [id number] respiratory acidosis with metabolic compensation with pH of 7.37, pCO2 86, pO2 59, and bicarb of 40, O2 sat 92% on 4 L. Chest x-ray performed on admission was personally reviewed by me - nonspecific density in the right costophrenic angle likely prominent fat pad. IMPRESSION AND RECOMMENDATIONS: 65-year-old obese male with history of O2 dependent COPD, diastolic heart failure, chronic respiratory failure, recurrent admissions recently, history of PE with IVC filter placement admitted with dizziness, shortness of breath. The patient with worsening hypoxemia recently likely secondary to combination of hypercapnic and hypoxemic respiratory failure from underlying COPD and diastolic CHF, and obesity hyperventilation syndrome. The patient also with suspicion for underlying sleep apnea. He was recently prescribed BiPAP, but has not been using that regularly, I believe, given worsening hypercapnia. He would benefit from trilogy at home than the BiPAP given recurrent hospitalizations for COPD and chronic shortness of breath and hypercapnia. Continue with O2 supplementation as needed. D-dimer is elevated and has a history of PE in the past; given no evidence of heart failure, PE needs to be ruled out. VQ scan is not going to be helpful. If he recently had a CTA, it is highly unlikely that he would have developed PE so quickly even though given his obesity and poor performance status it's likely that he could. Would start off with checking lower extremity Dopplers. Agree with lowering dose of Lasix to 40 mg given worsening metabolic alkalosis. Mildly elevated troponins, likely secondary to demand ischemia from underlying hypoxemia. If the patient is stable and cannot get CTA, or there is alternate explanation, will obtain CT of the chest to evaluate for the density noted on the chest x- ray which very well could be atelectasis noted on recent CTA done in Dec at [facility]. Thank you for allowing me to participate in the care of your patient. Will follow up with you. [id number]/[facility] #: [id number] LETY
--- NOTE | 2016-04-18 10:55 | RAD ---
CLINICAL HISTORY: Aortic dissection COMPARISON: CT of the chest dated April 18, 2016 TECHNIQUE: Multiple contiguous axial CT scans were obtained of the abdomen and pelvis after the administration of intravenous contrast. Coronal and sagittal multiplanar reformations are submitted for review. Oral contrast was not administered. 3-D volumetric reconstructions of the aorta are also submitted for review. FINDINGS: LUNG BASES: The lung bases are clear. LIVER: The liver is normal in shape, size, contour, and attenuation. BILE DUCTS: There is no intrahepatic or extrahepatic biliary dilatation. GALLBLADDER: The gallbladder is incompletely distended and is not well evaluated PANCREAS: The pancreas is normal, without mass or ductal dilatation. SPLEEN: Normal in size and appearance. UPPER GI TRACT: Evaluation of the gastrointestinal tract is limited by incomplete gastric distention. The upper GI tract is unremarkable. SMALL BOWEL AND MESENTERY: The small bowel is normal in contour, course, and caliber. There is no obstruction or dilatation. COLON: There is scattered diverticula of the ascending and sigmoid colon. There is no pericolonic inflammatory change ADRENALS: Normal bilaterally. KIDNEYS: A simple right renal cyst is noted.. There is no hydronephrosis or nephrolithiasis. BLADDER: The bladder is smooth in contour. PELVIC ORGANS: The prostate gland is normal. The seminal vesicles are symmetric. AORTA: Again noted is a intimal flap with an aortic dissection extending from the thoracic aorta inferiorly through to the aortic bifurcation and into the right common iliac artery and external iliac artery. The splanchnic vessels originate from the true lumen as to the renal arteries bilaterally. There is extensive atherosclerotic calcification along the margins of the true lumen of the false lumen is patent. There appears to be a fenestration in the dissection flap is seen on axial image 21. IVC: IVC filter is noted LYMPH NODES: There is no lymphadenopathy by size criteria. ABDOMINAL WALL: There is no evidence for abdominal wall hernia. BONES AND SOFT TISSUES: Degenerative changes are noted of the spine OTHER: None IMPRESSION: AORTIC DISSECTION EXTENDING FROM THE THORACIC AORTA INTO THE EXTERNAL ILIAC ARTERY ON THE RIGHT. THE AORTIC BRANCHES ORIGINATE FROM THE TRUE LUMEN. THE FALSE LUMEN IS PATENT.
--- NOTE | 2016-04-18 15:27 | ECHO ---
Patient: DOLORES TAFOYA Rec#: [id number] : 1950 Date: 04/18/2016 Age: 65y Height: 177.8 cm / 70.0 in Weight: 109.3 kg / 240.9 lbs Sex: M BSA: 2.26 Room#: [facility] Admit Date#: 04/17/2016 Type: Inpatient Referring: Tiago Becker Reading: Deo Thompson MD Truck Spotter: Blanca Gaspar RN RDCS CC: JERSEY MORALES Transthoracic Echocardiogram Indication: Shortness of breath, dizziness BP: 117/51 HR: 60 Rhythm: NSR with PACs Findings History: HTN, HLD, DM, severe COPD, PE with IVC filter, pulmonary hemorrhage, chronic thoracoabdominal aortic dissection, diastolic heart failure, schizoaffective disorder, obesity Technical Comments: The study is technically limited due to poor apical windows. The study is technically limited due to patient body habitus. The study is technically limited due to the patient's history of COPD. Completed at 1240. Left Ventricle: The left ventricular chamber size is normal. Moderate to severe concentric left ventricular hypertrophy is observed. Global left ventricular wall motion and contractility are within normal limits. Left ventricular systolic function is at the lower limits of normal. The estimated ejection fraction is 50-55%. There is septal flattening of the interventricular septum consistent with right ventricular volume or pressure overload. There is a left ventricular septal wall motion abnormality observed, possibly due to the presence of a right bundle branch block. The assessment of diastolic function is non-diagnostic. The patient was unable to perform a Valsalva maneuver. Left Atrium: The left atrium is mild to moderately dilated. Right Ventricle: The right ventricle wall thickness is mildly increased. The right ventricle is slightly dilated. The right ventricular global systolic function is mildly reduced. Right Atrium: The right atrium is mild to moderately dilated. Aortic Valve: The aortic valve is trileaflet. The aortic valve leaflets are mildly thickened. There is no evidence of aortic regurgitation. There is no evidence of aortic stenosis. Mitral Valve: Mild mitral annular calcification present. The mitral valve leaflets are mildly thickened. There is trace to mild mitral regurgitation. There is no evidence of mitral stenosis. Tricuspid Valve: The tricuspid valve leaflets are normal. There is trace tricuspid regurgitation. Unable to estimate the right ventricular systolic pressure. Pulmonic Valve: The pulmonic valve appears normal. There is a trace pulmonic regurgitation. There is no pulmonic stenosis. Pericardium: There is no significant pericardial effusion. A pericardial fat pad is visualized. Aorta: There is no dilatation of the ascending aorta. There is no dilatation of the aortic arch. There is no dilation of the aortic root. Pulmonary Artery: The main pulmonary artery appears normal. Venous: The inferior vena cava appears normal in size. There is a greater than 50% respiratory change in the inferior vena cava dimension. Summary: There was not any prior study for comparison. Conclusions Moderate to severe concentric left ventricular hypertrophy is observed. Global left ventricular wall motion and contractility are within normal limits. The estimated ejection fraction is 50-55%. There is septal flattening of the interventricular septum consistent with right ventricular volume or pressure overload. The assessment of diastolic function is non-diagnostic. The right ventricular global systolic function is mildly reduced. The aortic valve leaflets are mildly thickened. There is no evidence of aortic regurgitation. There is trace to mild mitral regurgitation. There is trace tricuspid regurgitation. Unable to estimate the right ventricular systolic pressure. There is no significant pericardial effusion. There is no dilatation of the ascending aorta. Measurements Name Value Normal Range RVIDd (AP) 2D 3.7 cm (0.9 - 2.6) RVDdMajor (2D) 4.4 cm (2.2 - 4.4) RVAW (2D) 0.8 cm (0.2 - 0.5) RAd ISD 4CH 5.6 cm (3.4 - 4.9) RA (A4C)W 3.8 cm (2.9 - 4.6) IVSd (2D) 2.1 cm (0.6 - 1) LVPWd (2D) 1.4 cm (0.6 - 1) LVIDd (2D) 4.8 cm (3.6 - 5.4) LVIDs (2D) 3 cm - LV FS (2D) 38 % (25 - 45) Aortic Annulus 2.6 cm (1.4 - 2.6) Ao root diameter (2D) 3.5 cm (2.1 - 3.5) Ascending Ao 3.3 cm (2.1 - 3.4) Aortic arch 2.1 cm (1.8 - 3.4) LA dimension (AP) 2D 5.4 cm (2.3 - 3.8) LAd ISD 4CH 6 cm (2.9 - 5.3) LA ISD 4CH W 5.3 cm (2.5 - 4.5) Name Value Normal Range LA ESV SP 4CH (A/L) 80 ml - LA ESV SP 2CH (A/L) 75 ml - LA ESV BP (A/L) 83 ml - LA ESV BP (A/L) index 36.6 ml/m2 - LA ESV SP 4CH (MOD) 77 ml - LA ESV SP 2CH (MOD) 74 ml - Name Value Normal Range MV E-wave Vmax 0.86 m/sec - MV deceleration time 238 msec - MV A-wave Vmax 0.82 m/sec - MV E:A ratio 1.1 ratio - LV septal e' Vmax 0.07 m/sec - LV lateral e' Vmax 0.1 m/sec - LV E:e' septal ratio 12.3 ratio - LV E:e' lateral ratio 8.6 ratio - Name Value Normal Range AV Vmax 1.9 m/sec - AV VTI 43.9 cm - AV peak gradient 14.2 mmHg - AV mean gradient 8.8 mmHg - LVOT Vmax 1.1 m/sec - LVOT VTI 25.6 cm - SERA Vmax 0.72 m/sec - Name Value Normal Range IVC diameter 1.6 cm - Name Value Normal Range PV Vmax 1.1 m/sec -
[2016-04-18] MEDS ORDERED: Furosemide IV* 10 MG/ML 10 ML VIAL (100 MG) IV ONE (16:46)
--- NOTE | 2016-04-18 16:53 | PN ---
Subjective Date of Service: 04/18/16 Interval History: Patient reports significant improvement in respiratory symptoms since increasing his O2. He reports feeling better today than yesterday. Denies any new complaints. Objective Active Medications: Acetaminophen (Tylenol Tab*) 650 mg PO Q4H PRN PRN Reason: FEVER/PAIN Last Admin: 04/17/16 07:47 Dose: 650 mg Albuterol (Ventolin 2.5 Mg/3 Ml Neb.Alecia*) 2.5 mg INH Q2H PRN PRN Reason: SOB/WHEEZING Aripiprazole (Abilify Tab*) 20 mg PO QPM [facility] Last Admin: 04/17/16 17:25 Dose: 20 mg Aspirin (Aspirin Ec Low Dose*) 81 mg PO DAILY [facility] Last Admin: 04/18/16 08:12 Dose: 81 mg Atorvastatin Calcium (Lipitor*) 40 mg PO DAILY [facility] Last Admin: 04/18/16 08:12 Dose: 40 mg Bisacodyl (Dulcolax Ec Tab*) 10 mg PO DAILY PRN PRN Reason: CONSTIPATION Bisacodyl (Dulcolax Supp*) 10 mg SC DAILY PRN PRN Reason: CONSTIPATION Dextrose (D50w Syringe 50 Ml*) 12.5 gm IV PUSH .FOR FS < 60 - SS PRN PRN Reason: FS < 60 Docusate Sodium (Colace Cap*) 100 mg PO BID [facility] Last Admin: 04/18/16 08:12 Dose: 100 mg Furosemide (Lasix Tab*) 40 mg PO DAILY [facility] Last Admin: 04/18/16 08:12 Dose: 40 mg Furosemide (Lasix Iv*) 20 mg IV ONCE ONE Stop: 04/18/16 16:47 Heparin Sodium (Porcine) (Heparin Vial(*)) 5,000 units SUBCUT Q8HR [facility] Last Admin: 04/18/16 12:55 Dose: 5,000 units Insulin Glargine (Lantus(*)) 48 units SUBCUT BEDTIME [facility] Last Admin: 04/17/16 20:59 Dose: 48 unit Insulin Human Lispro (Humalog*) 0 units SUBCUT AC [facility] PRN Reason: Protocol Last Admin: 04/18/16 12:34 Dose: 9 units Metoprolol Tartrate (Lopressor Tab*) 37.5 mg PO BID [facility] Last Admin: 04/18/16 08:12 Dose: 37.5 mg Mometasone Furoate/Formoterol Fumar (Dulera 200/5 Mdi*) 2 puff INH BID [facility] PRN Reason: Protocol Last Admin: 04/18/16 09:31 Dose: 2 puff Omeprazole (Prilosec Cap*) 40 mg PO DAILY [facility] Last Admin: 04/18/16 08:13 Dose: 40 mg Ondansetron HCl (Zofran Inj*) 4 mg IV Q6H PRN PRN Reason: NAUSEA Last Admin: 04/17/16 00:41 Dose: 4 mg Tiotropium [place] (Spiriva Cap.Inh*) 1 cap INH DAILY [facility] Last Admin: 04/18/16 09:31 Dose: 1 cap.inh Vital Signs: Temp Pulse Resp BP Pulse Ox 97.6 F 62 34 145/53 93 04/18/16 15:26 04/18/16 15:26 04/18/16 15:26 04/18/16 15:26 04/18/16 16:43 Oxygen Devices in Use Now: Nasal Cannula Appearance: Well appearing middle aged gentleman sitting up, eating lunch in NAD Neck: NL Appearance and Movements; NL JVP Respiratory: Symmetrical Chest Expansion and Respiratory Effort, - - mildly dyspnea, no wheezing/rhonchi or crackles appreciated Cardiovascular: NL Sounds; No Murmurs; No JVD, RRR Abdominal: NL Sounds; No Tenderness; No Distention Extremities: - - trace to 1+ edema Skin: No Rash or Ulcers Neurological: Alert and Oriented x 3 Result Diagrams: 04/17/16 05:48 04/18/16 05:10 Additional Lab and Data: . Diagnostic Imaging: CXR - density at R cardiophrenic angle, ?prominent fat pad. Echo - mod-severe LVH, unable to assess diastolic fxn, RV volume overload, mildly reduced RV fxn, LVEF 50-55% Assess/Plan/Problems-Billing Assessment: This is a 65 yo gentleman with schizoaffective d/o, severe COPD, diastolic HF, h /o PE with IVC filter inplace, IDDM, GERD, HTN, HLD who presents with complaints of dizziness and shortness of breath. - Patient Problems (1) Dizziness Comment: Likely due to hypoxia due to severe chronic respiratory failure secondary to COPD CTA negative for PE (2) COPD (chronic obstructive pulmonary disease) Comment: This does not seem to represent an acute exacerbation, but he has severe disease at baseline Recommend 6L supp O2 at rest and 10L for activity Cont inhaled therapies (3) Chronic respiratory failure Comment: Hypercarbic and hypoxic secondary to COPD Review of [facility] records show serum HCO3 consistently at 44-48, he is fully compensated at this time and this is likely his chronic state Ordered nighttime BiPAP at recommended settings of 16/6 Appreciate pulmonology consult who recommends Trilogy machine for sleep Patient has not been utilizing CPAP or BiPAP at [facility] is unable to accomodate Trilogy machine, but will order a BiPAP machine for him that will arrive tomorrow (4) Chronic diastolic HF (heart failure) Comment: No evidence of acute exacerbation Echo shows mod to severe LVH Evidence of RV overload on today's Lasix dose was decreased due to elevated serum bicarb, I believe this is all compensatory for his chronic hypercarbia Will increase his Lasix back to home dose of 80 mg daily (5) Chronic dissection of thoracic aorta Comment: CTA today showed dissection of thoracic and abdominal aorta through to the R external iliac artery Patient has no complaints of pain Compared to CTA from [facility] this appears to be a chronic finding (6) IDDM (insulin dependent diabetes mellitus) Comment: Last HgbA1c 7.7% Cont home Lantus dose and additional SS Humalog coverage if necessary (7) History of pulmonary embolism Comment: IVC filter in place Also has a h/o pulmonary hemorrhage CTA pending for tomorrow, premedicating for h/o hives with IV contrast (8) Abnormal chest xray Comment: Concern for mass or density at the R cardiac border on CXR No mass noted on CTA (9) Demand ischemia Comment: Mildly elevated trop, likely due to hypoxia (10) HTN (hypertension) Comment: Normotensive (11) HLD (hyperlipidemia) Status and Disposition: Patient will be discharged back to [facility] tomorrow. Arrangements have been made for nightly BiPAP, recommend supp O2 at dose of 6L at rest and 10L with activity.
[2016-04-18] MEDS: ARIPiprazole TAB* 20 MG PO SCH (17:27)
[2016-04-18] MEDS ORDERED: Benzocaine/Menthol LOZ* 1 LOZENGE PO PRN (19:31)
[2016-04-18] MEDS: Insulin GLARGINE(*) 1 UNITS UNIT SUBCUT SCH (20:54)
[2016-04-19] MEDS: Heparin VIAL(*) 5000 UNITS/ML VIAL (FIVE THOUSAND) SUBCUT SCH ×3 (05:34→21:26)
[2016-04-19] MEDS: Insulin LISPRO* 1 UNITS UNIT SUBCUT SCH ×3 (08:36→17:23)
[2016-04-19] MEDS: Docusate CAP* 100 MG PO SCH ×2 (08:37→21:26)
[2016-04-19] MEDS: Atorvastatin* 40 MG TAB PO SCH (08:37)
[2016-04-19] MEDS: Furosemide TAB* 40 MG PO SCH (08:37)
[2016-04-19] MEDS: Aspirin EC Low Dose* 81 MG TAB.EC PO SCH (08:37)
[2016-04-19] MEDS: Metoprolol Tartrate TAB* 25 MG PO SCH ×2 (08:37→21:26)
[2016-04-19] MEDS: Omeprazole CAP* 20 MG PO SCH (08:38)
--- NOTE | 2016-04-19 09:16 | DS ---
DISCHARGE SUMMARY: DATE OF ADMISSION: 04/16/16 DATE OF DISCHARGE: 04/19/16 PRIMARY CARE PROVIDER: [facility]. CONSULTING DIAMOND SIZER AND GRADER: Cindy Wilson MD. DISCHARGING PROVIDER: DEE Wright. SUPERVISING PHYSICIAN: Radha Ross MD* (dictated by DEE Wright) PRIMARY DISCHARGE DIAGNOSES: 1. Dizziness secondary to hypoxia. 2. Demand ischemia secondary to hypoxia. SECONDARY DISCHARGE DIAGNOSES: 1. Chronic respiratory failure secondary to chronic obstructive pulmonary disease - requires 6 L of supplemental O2 at rest and 10 with activity, and BiPAP at night. 2. Chronic diastolic heart failure without acute exacerbation. 3. Insulin-dependent diabetes. The hemoglobin A1c is 7.7%. 4. 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 5. History of pulmonary embolism with IVC filter in place. 6. Hypertension. 7. Hyperlipidemia. DISCHARGE MEDICATIONS: 1. Abilify 20 mg p.o. nightly. 2. Acetaminophen 650 mg p.o. q.6 hours as needed for pain or fever. 3. Nebulized albuterol 2.5 mg inhaled q.4 hours as needed for shortness of breath. 4. Aspirin 81 mg p.o. daily. 5. Chloraseptic lozenges one lozenge three times daily as needed for sore throat. 6. Dulcolax tablet 10 mg p.o. daily as needed for constipation. 7. Dulcolax suppository 10 mg rectally daily as needed for constipation. 8. Symbicort 160/4.5, two puffs inhaled twice daily. 9. Docusate 100 mg p.o. b.i.d. 10. Lasix 80 mg p.o. daily. 11. Lantus 48 units subcu at bedtime. 12. Metoprolol tartrate 37.5 mg p.o. b.i.d. 13. Omeprazole 40 mg p.o. daily. 14. Crestor 20 mg p.o. daily. 15. Spiriva one capsule inhaled daily. HOSPITAL IMAGIN. Chest x-ray 04/16/16, shows concern for a density at the right cardiophrenic angle, perhaps representing a prominent pericardial fat pad, although mass cannot be excluded. No other acute findings appreciated. 2. CTA of the chest shows no evidence of mass or pulmonary embolus. There is dissection of the descending thoracic aorta extending at least to the level of the upper abdomen. Small dependent bilateral lower lobe infiltrates consistent with atelectasis. 3. CTA of the abdomen and pelvis shows dissection extending from the thoracic aorta into external iliac artery on the right. 4. EKG 04/16/16 shows sinus rhythm with right bundle branch block. No ischemic changes. 5. Transthoracic echo cardiogram 04/17/16 shows [id number] LVH, diastolic function unable to be accessed. Evidence of right ventricular volume overload and mildly reduced right ventricular function. No significant valvular disease. HOSPITAL COURSE: This is a 65-year-old gentleman with multiple comorbid conditions including schizo-affective disorder and chronic respiratory failure secondary to COPD and severe chronic diastolic heart failure who had prolonged hospitalization at the [facility] and was subsequently discharged to [facility] as a long-term fci facility. The patient was complaining of intermittent dizziness at [facility] [place] and was subsequently transferred to the emergency department for further evaluation. Upon reaching the emergency department, CBC was within normal limits. Initial blood gas showed a compensated respiratory acidosis with a pH of 7.37, pCO2 of 86, bicarb of 40.2, and pO2 of 59. Initial chemistries also noted elevated serum bicarb as well as mildly elevated initial troponin of 0.04. CRP was negligible at 11, and remainder of labs were otherwise within normal limits. The patient was subsequently admitted for hypoxia and complaints of dizziness. The patient was unable to provide a detailed history, and had been a resident at [facility] [place] just 10 days prior to his admission to the hospital. Records were obtained from [facility] regarding his hospital admission there. It appears that he was treated for acute respiratory failure secondary to COPD and CHF. He required BiPAP in the ICU during that hospital stay. He required supplemental O2 prior to that hospitalization, but his baseline oxygen requirements had increased dramatically at the time of discharge and their recommendation was to use 6 L of supplemental O2 at rest and 10 L with activity and BiPAP at night. It seems that during his stay at [facility] [place], he was using between 3 and 4 L of supplemental O2 at all times. During the patient's hospital stay, orthostatic vital signs were completed when he was using 3 to 4L of supplemental O2. He became severely hypoxic with standing and desaturating into the 70s. After reviewing records from [facility], his supplemental oxygen was increased back to his recommended values of 6 L at rest and 10 L with activity, and the patient's complaints of dizziness improved dramatically. Repeat venous blood gas showed continued compensation of chronic respiratory acidosis secondary to hypercarbia. Again, upon review of records from the [place], this appears to be chronic for the patient. Prior serum bicarb was between 44 and 48 during his hospital stay there when he was otherwise asymptomatic. The patient also has a known history of pulmonary embolus and has an IVC filter in place. He is not anticoagulated due to a history of pulmonary hemorrhage. A CTA of his chest was obtained during his hospital stay here which showed no evidence of new PE. He does have chronically dissecting thoracic and abdominal aorta. The patient had no complaints of pain or evidence of acute dissection on exam. Compared to CTA from [facility], this appears to be a chronic finding. Echocardiogram was obtained during his hospital stay which shows moderate-to- severe LVH. Diastolic function was not clearly assessed, but he did have evidence of right ventricular overload on echocardiogram. The patient's home dose of Lasix of 80 mg was initially decreased to 40 mg due to his elevated serum bicarb and concern for a metabolic alkalosis, but this is more likely a compensatory measure secondary to his respiratory acidosis. His dose of Lasix was increased back to his prior dose of 80 mg. He had only mild lower extremity edema. There was concern of a potential mass appreciated on his initial chest x-ray, but followup CTA did not demonstrate such a mass. It is likely a predominant fat pad appreciated on chest x-ray that gave the appearance of a mass. Requested consultation services from plastic roller, Dr. Wilson, during the patient's hospital stay. She recommended continuing current therapy and thought he would benefit from use of a trilogy machine due to his frequent hospitalization and severity of his chronic respiratory failure. Discussed this with [facility] who is, unfortunately, unable to accommodate the trilogy machine. He had not been using CPAP or BiPAP while at [facility] [place], but this is strongly recommended, and [facility] [place] is ordering him a BiPAP machine which will arrive tomorrow. Recommended settings per [facility] is inspiratory pressure of 60 and expiratory pressure of 6. DISPOSITION: The patient is being discharged back to [facility] [place]. No changes to his home medications were made. Recommend that he maintain continuous supplemental oxygen at 6 L while at rest and 10 L with activity, and use BiPAP at night with the settings of 16 and 6. The patient should followup with Dr. Wilson for respiratory care seeing as it seems that he is likely going to be a long-term resident at [facility]. DEE WRIGHT CC: Dr. Wilson; [facility].* [id number]/CPS #: [id number] MTDD
[2016-04-19] MEDS: Tiotropium CAP.INH* CAP.INH/18 MCG INH SCH (10:12)
[2016-04-19] MEDS: Mometasone/Formoter 200/5 MDI INH SCH ×2 (10:12→22:34)
--- NOTE | 2016-04-19 10:16 | PN ---
Subjective Date of Service: 04/19/16 Interval History: Mr. Lam reports improvement in his shortness of breath with the increase in his nasal oxygen, Pt states that he was on 4-6L via [place] at home prior to his admission. Denies fever, chills, chest discomfort, N/V/D. Family History: Unchanged from Admission Social History: Unchanged from Admission Past Medical History: Unchanged from Admission Objective Active Medications: Acetaminophen (Tylenol Tab*) 650 mg PO Q4H PRN Reason: FEVER/PAIN Albuterol (Ventolin 2.5 Mg/3 Ml Neb.Alecia*) 2.5 mg INH Q2H PRN Reason: SOB/ WHEEZING Aripiprazole (Abilify Tab*) 20 mg PO QPM [facility] Aspirin (Aspirin Ec Low Dose*) 81 mg PO DAILY [facility] Atorvastatin Calcium (Lipitor*) 40 mg PO DAILY [facility] Bisacodyl (Dulcolax Ec Tab*) 10 mg PO DAILY PRN Reason: CONSTIPATION Bisacodyl (Dulcolax Supp*) 10 mg [place] DAILY PRN Reason: CONSTIPATION Dextrose (D50w Syringe 50 Ml*) 12.5 gm IV PUSH .FOR FS < 60 - SS PRN Reason: FS < 60 Docusate Sodium (Colace Cap*) 100 mg PO BID [facility] Furosemide (Lasix Tab*) 80 mg PO DAILY [facility] Heparin Sodium (Porcine) (Heparin Vial(*)) 5,000 units SUBCUT Q8HR [facility] Insulin Glargine (Lantus(*)) 48 units SUBCUT BEDTIME [facility] Insulin Human Lispro (Humalog*) 0 units SUBCUT AC [facility] Reason: Protocol Metoprolol Tartrate (Lopressor Tab*) 37.5 mg PO BID [facility] Mometasone Furoate/Formoterol Fumar (Dulera 200/5 Mdi*) 2 puff INH BID [facility] Omeprazole (Prilosec Cap*) 40 mg PO DAILY [facility] Ondansetron HCl (Zofran Inj*) 4 mg IV Q6H PRN Reason: NAUSEA Throat Lozenges (Chloraseptic Mery*) 1 mery PO Q6H PRN Reason: SORE THROAT Tiotropium [place] (Spiriva Cap.Inh*) 1 cap INH DAILY [facility] Vital Signs 04/18/16 04/18/16 04/18/16 13:52 15:26 16:43 Temperature 97.5 F 97.6 F Pulse Rate 62 62 Respiratory 22 34 Rate Blood Pressure 145/53 (mmHg) O2 Sat by Pulse 94 94 93 Oximetry 04/18/16 04/18/16 04/18/16 20:00 20:33 20:34 Temperature Pulse Rate 81 Respiratory 20 Rate Blood Pressure (mmHg) O2 Sat by Pulse 94 94 Oximetry 04/19/16 04/19/16 04/19/16 00:44 07:14 08:00 Temperature 98.4 F 97.6 F Pulse Rate 50 81 Respiratory 20 22 22 Rate Blood Pressure 115/46 154/69 (mmHg) O2 Sat by Pulse 95 93 Oximetry Oxygen Devices in Use Now: Nasal Cannula - 10L Appearance: NAD, sitting up in a chair. Eyes: No Scleral Icterus, PERRLA Ears/Nose/Mouth/Throat: NL Teeth, Lips, Gums, Mucous Membranes Moist Neck: NL Appearance and Movements; NL JVP, Trachea Midline Respiratory: Symmetrical Chest Expansion and Respiratory Effort, Clear to Auscultation, - - Mild dyspnea Cardiovascular: NL Sounds; No Murmurs; No JVD, RRR Abdominal: NL Sounds; No Tenderness; No Distention Extremities: - - Trace to bilateral LE Skin: No Rash or Ulcers Neurological: Alert and Oriented x 3, NL Muscle Strength and Tone Nutrition: Taking PO's Result Diagrams: 04/17/16 05:48 04/18/16 05:10 Additional Lab and Data: . Diagnostic Imaging: CXR - density at R cardiophrenic angle, ?prominent fat pad. Echo - mod-severe LVH, unable to assess diastolic fxn, RV volume overload, mildly reduced RV fxn, LVEF 50-55% Assess/Plan/Problems-Billing Assessment: Mr. Lam is a 65 yo gentleman with schizoaffective d/o, severe COPD, diastolic HF , h/o PE with IVC filter inplace, IDDM, GERD, HTN, HLD who presents with complaints of dizziness and shortness of breath. - Patient Problems (1) Dizziness Code(s): R42 - DIZZINESS AND GIDDINESS SNOMED Code(s): 465022233 Comment: - Likely due to hypoxia due to severe chronic respiratory failure secondary to COPD - CTA negative for PE (2) COPD (chronic obstructive pulmonary disease) Code(s): J44.9 - CHRONIC OBSTRUCTIVE PULMONARY DISEASE, UNSPECIFIED SNOMED Code(s): 71064654 Comment: - This does not seem to represent an acute exacerbation, but he has severe disease at baseline - Recommend 6L supp O2 at rest and 10L for activity and BiPAP at night - Cont inhaled therapies (3) Chronic respiratory failure Code(s): J96.10 - CHRONIC RESPIRATORY FAILURE, UNSP W HYPOXIA OR HYPERCAPNIA SNOMED Code(s): 01715518 Comment: - Hypercarbic and hypoxic secondary to COPD - Review of [facility] records show serum HCO3 consistently at 44-48, he is fully compensated at this time and this is likely his chronic state - Ordered nighttime BiPAP at recommended settings of 16/ - Appreciate pulmonology consult who recommends Trilogy machine for sleep, Patient has not been utilizing CPAP or BiPAP at [facility] is unable to accomodate Trilogy machine, but will order a BiPAP machine for him that will arrive today (4) Chronic diastolic HF (heart failure) Code(s): I50.32 - CHRONIC DIASTOLIC (CONGESTIVE) HEART FAILURE SNOMED Code(s) : 666244740 Comment: - No evidence of acute exacerbation - Echo shows mod to severe LVH - Lasix dose was decreased due to elevated serum bicarb, believe this is all compensatory for his chronic hypercarbia - Will increase his Lasix back to home dose of 80 mg daily (5) Chronic dissection of thoracic aorta Code(s): I71.01 - DISSECTION OF THORACIC AORTA SNOMED Code(s): 768064360 Comment: - CTA 04/18 showed dissection of thoracic and abdominal aorta through to the R external iliac artery - Patient has no complaints of pain - Compared to CTA from [facility] this appears to be a chronic finding (6) Demand ischemia Code(s): I24.8 - OTHER FORMS OF ACUTE ISCHEMIC HEART DISEASE SNOMED Code(s): 283502374 Comment: - Mildly elevated trop, likely due to hypoxia (7) Abnormal chest xray Code(s): R93.8 - ABNORMAL FINDINGS ON DIAGNOSTIC IMAGING OF BODY STRUCTURES SNOMED Code(s): 331474285 Comment: - Concern for mass or density at the R cardiac border on CXR - No mass noted on CTA (8) HLD (hyperlipidemia) Code(s): E78.5 - HYPERLIPIDEMIA, UNSPECIFIED SNOMED Code(s): 27826724 Comment: - Continue statin (9) HTN (hypertension) Code(s): I10 - ESSENTIAL (PRIMARY) HYPERTENSION SNOMED Code(s): 28943278 Comment: - Normotensive (10) History of pulmonary embolism Code(s): Z86.711 - PERSONAL HISTORY OF PULMONARY EMBOLISM SNOMED Code(s): 856153788 Comment: - IVC filter in place - Also has a h/o pulmonary hemorrhage - CTA shows no PE (11) IDDM (insulin dependent diabetes mellitus) Code(s): E11.9 - TYPE 2 DIABETES MELLITUS WITHOUT COMPLICATIONS; Z79.4 - CORRECTION (CURRENT) USE OF INSULIN SNOMED Code(s): 16289470 Comment: - Last HgbA1c 7.7% - Glucose 160-220 - Cont home Lantus dose and additional SS Humalog coverage if necessary (12) DVT prophylaxis Code(s): NFD5684 - SNOMED Code(s): 580707163 (13) Full code status Code(s): Z78.9 - OTHER SPECIFIED HEALTH STATUS SNOMED Code(s): 871730636 Status and Disposition: Inpatient. Plan to be discharged back to [facility] today if BiPAP arrives. Arrangements have been made for nightly BiPAP, recommend supplemental O2 at dose of 6L at rest and 10L with activity.
--- NOTE | 2016-04-19 13:32 | PN ---
Progress Note - Progress Note Note: Pulm consult f/u note 04/19/16. Pt seen and examined at bedside. No new complaints Active Medications Generic Name Dose Route Start Last Admin Trade Name [facility] PRN Reason Stop Dose Admin Acetaminophen 650 mg 04/16/16 11:14 04/17/16 07:47 Tylenol Tab* PO 650 mg Q4H PRN Administration FEVER/PAIN Albuterol 2.5 mg 04/16/16 11:14 Ventolin 2.5 Mg/3 Ml Neb.Alecia* INH Q2H PRN SOB/WHEEZING Aripiprazole 20 mg 04/16/16 18:00 04/18/16 17:27 Abilify Tab* PO 20 mg QPM [facility] Administration Aspirin 81 mg 04/17/16 09:00 04/19/16 08:37 Aspirin Ec Low Dose* PO 81 mg DAILY [facility] Administration Atorvastatin Calcium 40 mg 04/17/16 09:00 04/19/16 08:37 Lipitor* PO 40 mg DAILY [facility] Administration Bisacodyl 10 mg 04/16/16 11:17 Dulcolax Ec Tab* PO DAILY PRN CONSTIPATION Bisacodyl 10 mg 04/16/16 11:17 Dulcolax Supp* [place] DAILY PRN CONSTIPATION Dextrose 12.5 gm 04/16/16 11:14 D50w Syringe 50 Ml* IV PUSH .FOR FS < 60 - SS PRN FS < 60 Docusate Sodium 100 mg 04/16/16 21:00 04/19/16 08:37 Colace Cap* PO 100 mg BID [facility] Administration Furosemide 80 mg 04/19/16 09:00 04/19/16 08:37 Lasix Tab* PO 80 mg DAILY [facility] Administration Heparin Sodium (Porcine) 5,000 units 04/16/16 14:00 04/19/16 12:55 Heparin Vial(*) SUBCUT Not Given Q8HR [facility] Insulin Glargine 48 units 04/16/16 21:00 04/18/16 20:54 Lantus(*) SUBCUT 48 unit BEDTIME [facility] Administration Insulin Human Lispro 0 units 04/16/16 11:30 04/19/16 12:22 Humalog* SUBCUT 3 units AC [facility] Administration Protocol Metoprolol Tartrate 37.5 mg 04/16/16 21:00 04/19/16 08:37 Lopressor Tab* PO 37.5 mg BID [facility] Administration Mometasone Furoate/Formoterol Fumar 2 puff 04/16/16 21:00 04/19/16 10:12 Dulera 200/5 Mdi* INH Not Given BID [facility] Protocol Omeprazole 40 mg 04/17/16 09:00 04/19/16 08:38 Prilosec Cap* PO 40 mg DAILY [facility] Administration Ondansetron HCl 4 mg 04/16/16 11:14 04/17/16 00:41 Zofran Inj* IV 4 mg Q6H PRN Administration NAUSEA Throat Lozenges 1 mery 04/18/16 19:31 Chloraseptic Mery* PO Q6H PRN SORE THROAT Tiotropium [place] 1 cap 04/17/16 09:00 04/19/16 10:12 Spiriva Cap.Inh* INH Not Given DAILY [facility] Vital Signs Temp Pulse Resp BP Pulse Ox 97.6 F 81 20 154/69 94 04/19/16 07:14 04/19/16 12:15 04/19/16 12:15 04/19/16 07:14 04/19/16 12:16 Gen: Pt in NAD, sitting up in a chair HEENT: No Scleral Icterus, PERRLA, NL Teeth, Lips, Gums, Mucous Membranes Moist Neck: NL Appearance and Movements; NL JVP, Trachea Midline Respiratory: Symmetrical Chest Expansion and Respiratory Effort, Clear to Auscultation Cardiovascular: NL Sounds; No Murmurs; No JVD, RRR Abdominal: NL Sounds; No Tenderness; No Distention Extremities: Trace to bilateral LE Skin: No Rash or Ulcers Neurological: Alert and Oriented x 3, NL Muscle Strength and Tone Laboratory Results - last 24 hr 04/18/16 04/18/16 04/19/16 16:19 19:50 07:00 POC Glucose (mg/dL) 160 H 174 H 220 H 04/19/16 11:20 POC Glucose (mg/dL) 170 H . Diagnostic Imaging: CTA: No PE, B/l lower lobe atlectasis, emphysematous changes b/l CXR - density at R cardiophrenic angle, ?prominent fat pad. Echo - mod-severe LVH, unable to assess diastolic fxn, RV volume overload, mildly reduced RV fxn, LVEF 50-55% I/R: Pt is a 65 yo obese male with severe COPD, on 6-10L O2, cor pulmonale, diastolic HF, h/o PE with IVC filter inplace, IDDM, GERD, HTN, HLD admitted with dizziness and shortness of breath. - No evidence of acute exacerbation, has severe disease at baseline which is chronic and progressive - Recommend 6L supp O2 at rest and 10L for activity - BiPAP at night and during daytime naps with 6L O2 - Cont nebulizers - For d/c to [facility] today
[2016-04-19] MEDS: ARIPiprazole TAB* 20 MG PO SCH (17:23)
[2016-04-19] MEDS: Insulin GLARGINE(*) 1 UNITS UNIT SUBCUT SCH (21:26)
[2016-04-20] MEDS: Heparin VIAL(*) 5000 UNITS/ML VIAL (FIVE THOUSAND) SUBCUT SCH (05:13)
[2016-04-20 08:33] VITALS: BP 155/67
[2016-04-20] MEDS: Tiotropium CAP.INH* CAP.INH/18 MCG INH SCH (08:51)
[2016-04-20] MEDS: Mometasone/Formoter 200/5 MDI INH SCH (08:52)
[2016-04-20] MEDS: Insulin LISPRO* 1 UNITS UNIT SUBCUT SCH ×2 (10:18→11:41)
[2016-04-20] MEDS: Aspirin EC Low Dose* 81 MG TAB.EC PO SCH (10:19)
[2016-04-20] MEDS: Atorvastatin* 40 MG TAB PO SCH (10:19)
[2016-04-20] MEDS: Docusate CAP* 100 MG PO SCH (10:20)
[2016-04-20] MEDS: Furosemide TAB* 40 MG PO SCH (10:20)
[2016-04-20] MEDS: Omeprazole CAP* 20 MG PO SCH (10:20)
[2016-04-20] MEDS: Metoprolol Tartrate TAB* 25 MG PO SCH (10:22)
--- NOTE | 2016-04-20 10:41 | PN ---
Subjective Date of Service: 04/20/16 Interval History: Patient seen and examined at bedside. Pt states that he is feeling well today. Denies fever, chills, shortness of breath above his baseline, chest discomfort, N/V/D. Pt states that he used his BiPAP overnight for about 7 hours. Tele: Sinus arrhythmia, rate 50-60's when sleeping and 70's while awake. Family History: Unchanged from Admission Social History: Unchanged from Admission Past Medical History: Unchanged from Admission Objective Active Medications: Acetaminophen (Tylenol Tab*) 650 mg PO Q4H PRN Reason: FEVER/PAIN Albuterol (Ventolin 2.5 Mg/3 Ml Neb.Alecia*) 2.5 mg INH Q2H PRN Reason: SOB/ WHEEZING Aripiprazole (Abilify Tab*) 20 mg PO QPM [facility] Aspirin (Aspirin Ec Low Dose*) 81 mg PO DAILY [facility] Atorvastatin Calcium (Lipitor*) 40 mg PO DAILY [facility] Bisacodyl (Dulcolax Ec Tab*) 10 mg PO DAILY PRN Reason: CONSTIPATION Bisacodyl (Dulcolax Supp*) 10 mg OK DAILY PRN Reason: CONSTIPATION Dextrose (D50w Syringe 50 Ml*) 12.5 gm IV PUSH .FOR FS < 60 - SS PRN Reason: FS < 60 Docusate Sodium (Colace Cap*) 100 mg PO BID [facility] Furosemide (Lasix Tab*) 80 mg PO DAILY [facility] Heparin Sodium (Porcine) (Heparin Vial(*)) 5,000 units SUBCUT Q8HR [facility] Insulin Glargine (Lantus(*)) 48 units SUBCUT BEDTIME [facility] Insulin Human Lispro (Humalog*) 0 units SUBCUT AC [facility] Reason: Protocol Metoprolol Tartrate (Lopressor Tab*) 37.5 mg PO BID [facility] Mometasone Furoate/Formoterol Fumar (Dulera 200/5 Mdi*) 2 puff INH BID [facility] Omeprazole (Prilosec Cap*) 40 mg PO DAILY [facility] Ondansetron HCl (Zofran Inj*) 4 mg IV Q6H PRN Reason: NAUSEA Throat Lozenges (Chloraseptic Mery*) 1 mery PO Q6H PRN Reason: SORE THROAT Tiotropium [place] (Spiriva Cap.Inh*) 1 cap INH DAILY [facility] Vital Signs 04/19/16 04/19/16 04/19/16 12:15 12:16 16:11 Temperature 97.2 F Pulse Rate 81 73 Respiratory 20 18 Rate Blood Pressure 129/72 (mmHg) O2 Sat by Pulse 93 94 98 Oximetry 04/19/16 04/19/16 04/19/16 19:47 22:34 22:36 Temperature Pulse Rate Respiratory 18 Rate Blood Pressure (mmHg) O2 Sat by Pulse 97 97 Oximetry 04/19/16 04/20/16 04/20/16 23:38 07:36 07:54 Temperature 98.2 F 97.4 F Pulse Rate 56 100 Respiratory 20 20 24 Rate Blood Pressure 111/48 155/67 (mmHg) O2 Sat by Pulse 99 98 Oximetry 04/20/16 04/20/16 08:23 10:11 Temperature Pulse Rate 63 87 Respiratory 20 18 Rate Blood Pressure (mmHg) O2 Sat by Pulse 95 91 Oximetry Oxygen Devices in Use Now: Nasal Cannula - 5L Appearance: NAD, laying in bed Eyes: No Scleral Icterus, PERRLA Ears/Nose/Mouth/Throat: NL Teeth, Lips, Gums, Mucous Membranes Moist Neck: NL Appearance and Movements; NL JVP, Trachea Midline Respiratory: Symmetrical Chest Expansion and Respiratory Effort, Clear to Auscultation Cardiovascular: NL Sounds; No Murmurs; No JVD, RRR Abdominal: NL Sounds; No Tenderness; No Distention Extremities: No Edema Skin: No Rash or Ulcers Neurological: Alert and Oriented x 3, NL Muscle Strength and Tone Nutrition: Taking PO's Result Diagrams: 04/17/16 05:48 04/18/16 05:10 Additional Lab and Data: . Diagnostic Imaging: CXR - density at R cardiophrenic angle, ?prominent fat pad. Echo - mod-severe LVH, unable to assess diastolic fxn, RV volume overload, mildly reduced RV fxn, LVEF 50-55% Assess/Plan/Problems-Billing Assessment: Mr. Lam is a 65 yo gentleman with schizoaffective d/o, severe COPD, diastolic HF , h/o PE with IVC filter inplace, IDDM, GERD, HTN, HLD who presents with complaints of dizziness and shortness of breath. - Patient Problems (1) Dizziness Code(s): R42 - DIZZINESS AND GIDDINESS SNOMED Code(s): 789306322 Comment: - Likely due to hypoxia due to severe chronic respiratory failure secondary to COPD - CTA negative for PE (2) COPD (chronic obstructive pulmonary disease) Code(s): J44.9 - CHRONIC OBSTRUCTIVE PULMONARY DISEASE, UNSPECIFIED SNOMED Code(s): 64339380 Comment: - This does not seem to represent an acute exacerbation, but he has severe disease at baseline - Recommend 6L supp O2 at rest and 10L for activity and BiPAP at night - Cont inhaled therapies (3) Chronic respiratory failure Code(s): J96.10 - CHRONIC RESPIRATORY FAILURE, UNSP W HYPOXIA OR HYPERCAPNIA SNOMED Code(s): 03123264 Comment: - Hypercarbic and hypoxic secondary to COPD - Review of [facility] records show serum HCO3 consistently at 44-48, he is fully compensated at this time and this is likely his chronic state - Ordered nighttime BiPAP at recommended settings of 16/6 - Appreciate pulmonology consult who recommends Trilogy machine for sleep, Patient has not been utilizing CPAP or BiPAP at [facility] - [facility] is unable to accomodate Trilogy machine, but will order a BiPAP machine for him that will arrive today (4) Chronic diastolic HF (heart failure) Code(s): I50.32 - CHRONIC DIASTOLIC (CONGESTIVE) HEART FAILURE SNOMED Code(s) : 379938841 Comment: - No evidence of acute exacerbation - Echo shows mod to severe LVH - Lasix dose was decreased due to elevated serum bicarb, believe this is all compensatory for his chronic hypercarbia - Will increase his Lasix back to home dose of 80 mg daily (5) Chronic dissection of thoracic aorta Code(s): I71.01 - DISSECTION OF THORACIC AORTA SNOMED Code(s): 781155870 Comment: - CTA 04/18 showed dissection of thoracic and abdominal aorta through to the R external iliac artery - Patient has no complaints of pain - Compared to CTA from [facility] this appears to be a chronic finding (6) Demand ischemia Code(s): I24.8 - OTHER FORMS OF ACUTE ISCHEMIC HEART DISEASE SNOMED Code(s): 078908685 Comment: - Mildly elevated trop, likely due to hypoxia (7) Abnormal chest xray Code(s): R93.8 - ABNORMAL FINDINGS ON DIAGNOSTIC IMAGING OF BODY STRUCTURES SNOMED Code(s): 014124652 Comment: - Concern for mass or density at the R cardiac border on CXR - No mass noted on CTA (8) HLD (hyperlipidemia) Code(s): E78.5 - HYPERLIPIDEMIA, UNSPECIFIED SNOMED Code(s): 67458106 Comment: - Continue statin (9) HTN (hypertension) Code(s): I10 - ESSENTIAL (PRIMARY) HYPERTENSION SNOMED Code(s): 50159097 Comment: - Normotensive (10) History of pulmonary embolism Code(s): Z86.711 - PERSONAL HISTORY OF PULMONARY EMBOLISM SNOMED Code(s): 038456431 Comment: - IVC filter in place - Also has a h/o pulmonary hemorrhage - CTA shows no PE (11) IDDM (insulin dependent diabetes mellitus) Code(s): E11.9 - TYPE 2 DIABETES MELLITUS WITHOUT COMPLICATIONS; 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 Discharge back to [facility] today, recommend supplemental O2 at dose of 6L at rest and 10L with activity.
--- NOTE | 2016-04-20 11:17 | DS ---
ADDENDUM TO DISCHARGE SUMMARY BY DEE WRIGHT DICTATED ON 04/18/2016. DATE OF ADMISSION: 04/16/2016. DATE OF DISCHARGE: 04/20/2016. ATTENDING PHYSICIAN: Iván Davey MD* (dictated by NAVI Xiong) AGE: 65. HISTORY OF PRESENT ILLNESS: The patient has been doing well. He trialed use of his BiPAP for approximately seven hours overnight. [facility] has received the BiPAP machine for the patient. Mr. Lam is stable for discharge to [facility] today. Vital signs are as follows: Temperature 97.4, heart rate 66, respiratory rate 20, O2 sat 98 percent on 5 liters via nasal cannula, blood pressure 155/67. DISPOSITION: Mr. Lam will be discharged back to [facility] today. There have been no changes in his home medications. He should be on continuous supplemental oxygen at 6 liters while at rest and 10 liters with activity. The patient should use BiPAP at night with the settings of 16 and 6 with 6 liters of oxygen. The patient should be seen in follow-up with Dr. Wilson with Pulmonology. The patient should be seen by a provider at [facility] per [facility]'s protocol. TIME SPENT: Approximately 20 minutes were spent with addending and updating this patient's discharge instructions and discharge summary. Reviewed by NAVI ALLEN 04/20/16 1327 [id number]/[facility] #: [id number] MTDD
== END 2016-04-20 12:41 | disposition home or self-care (01) | DRG 189 ==
LOC: ED 08:15 → MEDTELE 10:41 → EDSEX 10:41 → OBSVTOIN 04-17 13:58
PROVIDERS: ADMIT Internal Medicine; ATTEND Hospitalist
PROC: 5A09357 Assistance with Respiratory Ventilation, Less than 24 Consecutive Hours, Continuous Positive Airway Pressure (ICD-10-PCS; principal; 2016-04-17)
DX: J96.21 Acute and chronic respiratory failure with hypoxia (principal); I71.01 Dissection of thoracic aorta; I71.02 Dissection of abdominal aorta; I50.32 Chronic diastolic (congestive) heart failure; J98.11 Atelectasis; I11.0 Hypertensive heart disease with heart failure; J44.9 Chronic obstructive pulmonary disease, unspecified; J96.22 Acute and chronic respiratory failure with hypercapnia; Z99.81 Dependence on supplemental oxygen; E11.9 Type 2 diabetes mellitus without complications; J45.909 Unspecified asthma, uncomplicated; Z88.1 Allergy status to other antibiotic agents; Z88.0 Allergy status to penicillin; Z88.2 Allergy status to sulfonamides; Z88.8 Allergy status to other drugs, medicaments and biological substances; Z91.041 Radiographic dye allergy status; Z82.49 Family history of ischemic heart disease and other diseases of the circulatory system; Z83.6 Family history of other diseases of the respiratory system; Z87.891 Personal history of nicotine dependence; E78.5 Hyperlipidemia, unspecified; K21.9 Gastro-esophageal reflux disease without esophagitis; Z80.9 Family history of malignant neoplasm, unspecified; F25.9 Schizoaffective disorder, unspecified; Z86.711 Personal history of pulmonary embolism; E66.9 Obesity, unspecified; Z79.82 Long term (current) use of aspirin; Z79.4 Long term (current) use of insulin; I45.10 Unspecified right bundle-branch block; Z68.34 Body mass index [BMI] 34.0-34.9, adult
CPT/HCPCS: 36415; 36600; 71010; 71275; 74174; 80048; 80053; 81003; 81015; 82550; 82553; 82803; 83605; 83690; 83735; 83880; 84443; 84484; 85025; 85379; 85610; 85730; 86140; 87502; 87641; 93005; 93306; 94640; 94660; 94760; A9270-GY; J1644; J1940; J2405; J7512; Q9967

== ENCOUNTER 2016-07-10 11:18 | Inpatient (IN) | payer MEDICARE ==
[2016-07-10] MEDS ORDERED: Albuterol/Ipratropium NEB.SOL* Albuterol 2.5 MG/Ipratropium 0.5 MG 3 ML INH ONE (12:46)
--- NOTE | 2016-07-10 12:47 | RAD ---
INDICATION: Short of breath COMPARISON: Chest x-ray April 16, 2016 TECHNIQUE: An AP portable view obtained at 1235 hours is submitted. FINDINGS: Bones/Soft Tissues: There are no acute bony findings. Cardiomediastinal: The cardiomediastinal silhouette is enlarged. The central pulmonary vessels and interstitium are prominent compatible with mild vascular congestion. Lungs: There are no infiltrates. Pleura: There are no significant effusions. Other: None IMPRESSION: MILD VASCULAR CONGESTION..
[2016-07-10 12:57] LABS: Comments Flag Yes; Hematocrit 39 % (42-52); Mean Corpuscular HGB Conc 30 g/dl (31-36); Mean Corpuscular Hemoglobin 29 pg (27-31); Mean Corpuscular Volume 95 fL (80-94); Mean Platelet Volume 9 um3 (7.4-10.4); Red Blood Count 4.14 10^6/ul (4.0-5.4); Red Cell Distribution Width 15 % (10.5-15); White Blood Count 11.9 10^3/ul (3.5-10.8)
[2016-07-10 13:05] LABS: Urine Bacteria Absent (Absent); Urine Bilirubin Negative (Negative); Urine Glucose Negative (Negative); Urine Nitrite Negative (Negative)
[2016-07-10] MEDS ORDERED: Levofloxacin 750 MG IVPREMIX(* 750 MG/150 ML BAG IVPB ONE (13:11)
[2016-07-10 13:12] LABS: BUN/Creatinine Ratio 31.8 (8-20); Calcium 9.5 mg/dL (8.6-10.3); EGFR African American 155.8 (>60); EGFR Non-African American 121.1 (>60); Globulin 3.3 g/dL (2-4); Potassium 4.3 mmol/L (3.5-5.0); Total Bilirubin 0.3 mg/dL (0.2-1.0); Total Protein 7.3 g/dL (6.4-8.9)
[2016-07-10] MEDS ORDERED: predniSONE TAB* 20 MG PO ONE (13:12)
[2016-07-10 13:21] LABS: Troponin I 0.04 ng/mL (<0.04)
[2016-07-10] MEDS ORDERED: Albuterol 2.5 MG/3 ML NEB.SOL* (0.083%) INH PRN (13:51)
[2016-07-10] MEDS ORDERED: Benzocaine/Menthol LOZ* 1 LOZENGE MT PRN (13:51)
[2016-07-10] MEDS ORDERED: Acetaminophen TAB* 325 MG PO PRN (13:51)
[2016-07-10] MEDS ORDERED: Furosemide IV* 10 MG/ML 10 ML VIAL (100 MG) IV ONE ×2 (13:53→23:21)
--- NOTE | 2016-07-10 14:07 | ED ---
I, José,Ny, scribed for Fabi Vivar MD on 07/10/16 at 1224 . Shortness of Breath - HPI Summary HPI Summary: This 65 y/o male presents to ED from [facility] for acute on chronic SOB since today AM. Positive for productive cough since 3 days ago. PMHx includes asthma, COPD, PE with IVC filter placement, and recently dx PNA. Pt is currently in [facility] since his dx of PNA. Pt is oxygen dependent at home with baseline use of 6 L oxygen. Former heavy smoker with 40+ years of tobacco use hx. Pt has been trying to quit since 4 months ago. FHx is negative for DM. Primary care involves Dr. Montenegro. Previous EMR from 04/16/2016 and 04/18/2016 reviewed. CTA on 04/18/2016 indicates dissecting aneurysm. - History of Current Complaint Chief Complaint: EDShortnessOfBreath Time Seen by Provider: 07/10/16 12:12 Hx Obtained From: Patient, Medical Records Onset/Duration: Sudden Onset Timing: Constant Dyspnea At: Rest Aggrevating Factors: Nothing Alleviating Factors: Nothing Associated Signs & Symptoms: Cough (Productive) - Allergy/Home Medications Allergies/Adverse Reactions: Allergies Allergy/AdvReac Type Severity Reaction Status Date / Time Cimetidine Allergy Hives Verified 04/16/16 08:50 Erythromycin Allergy Hives Verified 04/16/16 08:50 Fosinopril Allergy Rash Verified 04/16/16 08:50 Iodine Allergy Rash Verified 04/16/16 08:50 Lisinopril Allergy Rash And Verified 04/16/16 08:50 Itching Penicillin G Allergy Rash Verified 04/16/16 08:50 Sulfa Antibiotics Allergy Hives Verified 04/16/16 08:50 Tomato Allergy Swelling Verified 04/16/16 08:50 ivp dye Allergy Hives Uncoded 04/16/16 08:50 Home Medications: Home Medications Lisinopril TAB* [Prinivil TAB*] 5 mg PO DAILY 07/10/16 [History Confirmed ] Simvastatin TAB(NF) [Zocor(NF)] 20 mg PO 1700 07/10/16 [History Confirmed ] metFORMIN* [Glucophage 500 MG TAB *] 500 mg PO BID 07/10/16 [History Confirmed 07/10/16] PMH/Surg Hx/FS Hx/Imm Hx Endocrine/Hematology History: Reports: Hx Diabetes Cardiovascular History: Reports: Hx Hypercholesterolemia, Hx Hypertension Denies: Hx Congestive Heart Failure Respiratory History: Reports: Hx Asthma, Hx Chronic Obstructive Pulmonary Disease (COPD), Hx Pulmonary Embolism GI History: Reports: Hx Gastroesophageal Reflux Disease History: Denies: Hx Renal Disease Musculoskeletal History: Reports: Hx Arthritis - Surgical History Surgery Procedure, Year, and Place: Laminectomy. Hernia repair x2. Tonsillectomy. Appendectomy Infectious Disease History: No Infectious Disease History: Denies: Traveled Outside the [place] in Last 30 Days - Family History Known Family History: Positive: Cardiac Disease - Positive to mother who had heart failure, Respiratory Disease - PE - mother , Other - Father -- [place] - Social History Alcohol Use: Rare Substance Use Type: Reports: None Hx Tobacco Use: Yes Smoking Status (MU): Former Smoker Have You Smoked in the Last Year: Yes Review of Systems Negative: Fever Positive: Shortness Of Breath, Cough - productive cough All Other Systems Reviewed And Are Negative: Yes Physical Exam Triage Information Reviewed: Yes Vital Signs On Initial Exam: Initial Vitals Temp Pulse Resp BP Pulse Ox 98.2 F 79 26 137/62 95 07/10/16 11:29 07/10/16 11:29 07/10/16 11:29 07/10/16 11:29 07/10/16 11:29 Vital Signs Reviewed: Yes Appearance: Positive: Well-Appearing, No Pain Distress Skin: Positive: Warm, Skin Color Reflects Adequate Perfusion, Dry Head/Face: Positive: Normal Head/Face Inspection Eyes: Positive: EOMI, EDMUND Neck: Positive: Supple, Nontender Respiratory/Lung Sounds: Positive: Decreased Breath Sounds - Worse in right than in left Cardiovascular: Positive: RRR, Pulses are Symmetrical in both Upper and Lower Extremities Abdomen Description: Positive: Nontender, Soft Musculoskeletal: Positive: Strength/ROM Intact Neurological: Positive: Sensory/Motor Intact, Alert, Oriented to Person Place, Time Psychiatric: Positive: Affect/Mood Appropriate AVPU Assessment: Alert - [place] Coma Scale Coma Scale Total: 15 Diagnostics - Vital Signs Vital Signs Temp Pulse Resp BP Pulse Ox 07/10/16 11:50 68 96 07/10/16 11:49 119/49 07/10/16 11:41 26 07/10/16 11:31 97.4 F 65 26 137/62 95 07/10/16 11:29 98.2 F 79 26 137/62 95 - Laboratory Lab Results: Lab Results 07/10/16 07/10/16 07/10/16 Range/Units 12:45 12:45 12:45 WBC 11.9 H (3.5-10.8) 10^3/ul RBC 4.14 (4.0-5.4) 10^6/ul Hgb 12.0 L (14.0-18.0) g/dl Hct 39 L (42-52) % MCV 95 H (80-94) fL MCH 29 (27-31) pg MCHC 30 L (31-36) g/dl RDW 15 (10.5-15) % Plt Count 162 (150-450) 10^3/ul MPV 9 (7.4-10.4) um3 Neut % (Auto) 84.0 H (38-83) % Lymph % (Auto) 7.1 L (25-47) % [place] % (Auto) 7.5 (1-9) % Eos % (Auto) 0.8 (0-6) % Baso % (Auto) 0.6 (0-2) % Absolute Neuts (auto) 10.0 H (1.5-7.7) 10^3/ul Absolute Lymphs (auto) 0.8 L (1.0-4.8) 10^3/ul Absolute Monos (auto) 0.9 H (0-0.8) 10^3/ul Absolute Eos (auto) 0.1 (0-0.6) 10^3/ul Absolute Basos (auto) 0.1 (0-0.2) 10^3/ul Absolute Nucleated RBC 0.01 10^3/ul Nucleated RBC % 0 INR (Anticoag Therapy) 0.90 (0.89-1.11) APTT 26.8 (26.0-36.3) seconds Sodium 140 (133-145) mmol/L Potassium 4.3 (3.5-5.0) mmol/L Chloride 89 L (101-111) mmol/L Carbon Dioxide Pending Anion Gap Pending BUN 21 (6-24) mg/dL Creatinine 0.66 L (0.67-1.17) mg/dL Est GFR ( Amer) 155.8 (>60) Est GFR (Non-Af Amer) 121.1 (>60) BUN/Creatinine Ratio 31.8 H (8-20) Glucose 89 (70-100) mg/dL Lactic Acid (0.5-2.0) mmol/L Calcium 9.5 (8.6-10.3) mg/dL Total Bilirubin 0.30 (0.2-1.0) mg/dL AST 33 (13-39) U/L ALT 56 H (7-52) U/L Alkaline Phosphatase 86 (34-104) U/L Troponin I 0.04 H* (<0.04) ng/mL B-Natriuretic Peptide ( - 100) pg/mL Total Protein 7.3 (6.4-8.9) g/dL Albumin 4.0 (3.2-5.2) g/dL Globulin 3.3 (2-4) g/dL Albumin/Globulin Ratio 1.2 (1-3) Urine Color Urine Appearance Urine pH (5-9) Ur Specific [place] (1.010-1.030) Urine Protein (Negative) Urine Ketones (Negative) Urine Blood (Negative) Urine Nitrate (Negative) Urine Bilirubin (Negative) Urine Urobilinogen (Negative) Ur Leukocyte Esterase (Negative) Urine WBC (Auto) (Absent) Urine RBC (Auto) (Absent) Ur Squamous Epith Cells (Absent) Urine Bacteria (Absent) Hyaline Casts (Absent) Urine Glucose (Negative) 07/10/16 07/10/16 07/10/16 Range/Units 12:45 12:45 12:50 WBC (3.5-10.8) 10^3/ul RBC (4.0-5.4) 10^6/ul Hgb (14.0-18.0) g/dl Hct (42-52) % MCV (80-94) fL MCH (27-31) pg MCHC (31-36) g/dl RDW (10.5-15) % Plt Count (150-450) 10^3/ul MPV (7.4-10.4) um3 Neut % (Auto) (38-83) % Lymph % (Auto) (25-47) % [place] % (Auto) (1-9) % Eos % (Auto) (0-6) % Baso % (Auto) (0-2) % Absolute Neuts (auto) (1.5-7.7) 10^3/ul Absolute Lymphs (auto) (1.0-4.8) 10^3/ul Absolute Monos (auto) (0-0.8) 10^3/ul Absolute Eos (auto) (0-0.6) 10^3/ul Absolute Basos (auto) (0-0.2) 10^3/ul Absolute Nucleated RBC 10^3/ul Nucleated RBC % INR (Anticoag Therapy) (0.89-1.11) APTT (26.0-36.3) seconds Sodium (133-145) mmol/L Potassium (3.5-5.0) mmol/L Chloride (101-111) mmol/L Carbon Dioxide Anion Gap BUN (6-24) mg/dL Creatinine (0.67-1.17) mg/dL Est GFR ( Amer) (>60) Est GFR (Non-Af Amer) (>60) BUN/Creatinine Ratio (8-20) Glucose (70-100) mg/dL Lactic Acid 1.5 (0.5-2.0) mmol/L Calcium (8.6-10.3) mg/dL Total Bilirubin (0.2-1.0) mg/dL AST (13-39) U/L ALT (7-52) U/L Alkaline Phosphatase (34-104) U/L Troponin I (<0.04) ng/mL B-Natriuretic Peptide 272 H ( - 100) pg/mL Total Protein (6.4-8.9) g/dL Albumin (3.2-5.2) g/dL Globulin (2-4) g/dL Albumin/Globulin Ratio (1-3) Urine Color Yellow Urine Appearance Clear Urine pH 5.0 (5-9) Ur Specific [place] 1.009 L (1.010-1.030) Urine Protein 1+(30 mg/dl) H (Negative) Urine Ketones Negative (Negative) Urine Blood Negative (Negative) Urine Nitrate Negative (Negative) Urine Bilirubin Negative (Negative) Urine Urobilinogen Negative (Negative) Ur Leukocyte Esterase Negative (Negative) Urine WBC (Auto) Absent (Absent) Urine RBC (Auto) Absent (Absent) Ur Squamous Epith Cells Present H (Absent) Urine Bacteria Absent (Absent) Hyaline Casts Present H (Absent) Urine Glucose Negative (Negative) Result Diagrams: 07/10/16 12:45 07/10/16 12:45 Lab Statement: Any lab studies that have been ordered have been reviewed, and results considered in the medical decision making process. - Radiology CXR Xray Interpretation: Positive (See Comments) - Larger density on right lobe and larger costochondriac angle in comparison to CXR in April 2016 Radiology Interpretation Completed By: ED Physician - EKG 1141 Cardiac Rate: NL - NSR EKG Rhythm: Sinus Rhythm EKG Interpretation: RBBB EKG Comparison: No Significant Change - 04/16/2016 Course/Dx - Course Course Of Treatment: 65 yo male with chronic respiratory issues on 6l of O2 at [facility] living comes in with 3 days of worsening sob, that was at a maximum today , he has decreased breath sounds b/l. Of note on his previous admission in April he had a CTA (for previous PE's with a candace filter in place) with a dissecting thoracic aneurysm down to his iliacs. The pt had to be pre-medicated for that CTA and so it hasn't been repeated from the ED. Pt describes bringing up green sputum. The case has been discussed with Dr. Umaña who is aware of the issue with doing the CTA she agreed to a neb, levaquin and abg and will have the pt admitted - Diagnoses Differential Diagnosis/HQI/PQRI: Positive: Bronchitis, COPD Exacerbation Provider Diagnoses: Chronic diastolic HF (heart failure), COPD (chronic obstructive pulmonary disease) - Physician Notifications Discussed Care of Patient With: Dr. Umaña (Hospitalist) at 1310 PM -- accepts admission Instructed by Provider To: Admit As Inpatient - Critical Care Time Critical Care Time: 30-74 min Discharge - Discharge Plan Condition: Stable Disposition: ADMITTED TO [facility] The documentation as recorded by the José montes Soohyun accurately reflects the service I personally performed and the decisions made by me, Fabi Vivar MD.
[2016-07-10] MEDS ORDERED: Spiriva Inhaler DEVICE* 1 EACH DEVICE ONE (16:00)
[2016-07-10] MEDS ORDERED: Morphine INJ* 2 MG/ML 1 ML SYRINGE IV PRN (17:03)
--- NOTE | 2016-07-10 17:32 | PN ---
Progress Note - Progress Note Note: Mr. Lam continues to have tachypnea with increasing hypoxia and requires transfer to ICU for closer monitoring and continuation of BIPAP with diuresis in treatment of acute CHF exacerbation.
[2016-07-10] MEDS: Heparin VIAL(*) 5000 UNITS/ML VIAL (FIVE THOUSAND) SUBCUT SCH ×2 (17:57→22:19)
[2016-07-10] MEDS: Insulin LISPRO* 1 UNITS UNIT SUBCUT SCH (18:02)
[2016-07-10] MEDS: ARIPiprazole TAB* 20 MG PO SCH (18:05)
[2016-07-10] MEDS: Metoprolol Tartrate TAB* 25 MG PO SCH (20:37)
[2016-07-10] MEDS: Insulin GLARGINE(*) 1 UNITS UNIT SUBCUT SCH (20:38)
--- NOTE | 2016-07-10 20:47 | HP ---
HISTORY AND PHYSICAL: DATE OF ADMISSION: 07/10/16 ATTENDING PHYSICIAN: LAURA Conde (dictation provided by Scarlet Hernandez NP) . CHIEF COMPLAINT: Cough and shortness of breath. HISTORY OF PRESENT ILLNESS: Mr. Lam is a 65-year-old male with past medical history of COPD with chronic hypercapnic respiratory failure on 6 L nasal cannula as well as insulin dependent diabetes and bipolar disorder and systolic CHF who presents to the hospital today with concern for cough and shortness of breath. Mr. Lam is unwilling to answer most of my questions today. The most he will tell me is that he has been feeling unwell for about 3 days. He has had increased cough. He has had worsening shortness of breath. He states his chest pain is "just as normal." He states he has been eating and drinking well and denies any other complaints. He does not believe that he has had a fever. He states that his legs are swollen, but he is unable to characterize for me if this is baseline or worse than usual. In the emergency room, Mr. Lam had a chest x ray which showed concern for mild pulmonary vascular congestion. Labs showed only a very mild leukocytosis. He has got no fever. His BNP is mildly elevated at 272. His troponin is 0.04. PAST MEDICAL HISTORY: 1. Type 2 diabetes, insulin dependent. 2. COPD with chronic hypercapnic respiratory failure, on 6 L oxygen during the day and 10 L at night as well as BiPAP. 3. Hyperlipidemia. 4. GERD. 5. Hypertension. 6. Bipolar disorder. 7. Current diastolic congestive heart failure with an ejection fraction of 50% to 55%. 8. History of pulmonary embolism with IVC filter in place. 9. 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 ALLERGIES: 1. CIMETIDINE. 2. ERYTHROMYCIN. 3. FOSINOPRIL. 4. IODINE. 5. LISINOPRIL. 6. PENICILLIN G. 7. SULFA ANTIBIOTICS. 8. TOMATO. 9. IV DYE. FAMILY HISTORY: Unobtainable as the patient was unwilling to answer questions. SOCIAL HISTORY: Unobtainable. Again, the patient unwilling to answer questions. REVIEW OF SYSTEMS: A 14-point review of systems was attempted with Mr. Lam and all those not mentioned above were negative or he refused to answer. PHYSICAL EXAMINATION GENERAL: Mr. Lam is sitting up in the bed. He is in no acute distress. VITAL SIGNS: Blood pressure 106/56, temperature 97.4, heart rate 61, respiratory rate 22, O2 saturation 97% on 6 L nasal cannula. LUNGS: Diminished bilaterally. No accessory muscle use. Speaking clear and complete sentences. HEART: S1 and S2. No murmur, rub, or gallop and regular. ABDOMEN: Soft and nontender with bowel sounds positive x4. EXTREMITIES: No cyanosis. Positive for 2 to 3+ edema. NEUROLOGIC: He is alert. He is oriented x3. He moves all extremities equally. There is no facial asymmetry or focal weakness. Extraocular movements are intact. SKIN: Intact. LABORATORY DATA: WBC 11.9, hemoglobin 12.9, hematocrit 39, and platelet count 162. INR is 0.90. Sodium 140, potassium 4.3, chloride 89, BUN 21, creatinine 0.66, glucose 89. Troponin 0.04. BNP 272. Urine shows no evidence of infection. Chest x-ray shows mild pulmonary vascular congestion. EKG shows sinus rhythm with a right bundle branch block and heart rate 60 with no evidence of ischemia. ASSESSMENT: Mr. Lam is a 65-year-old male with past medical history of chronic obstructive pulmonary disease with chronic hypercapnic respiratory failure on home O2 at 6 to 10 L as well as insulin dependent diabetes and diastolic congestive heart failure who presents to the hospital today with concern for cough and shortness of breath. Our plan is for observation in the hospital for the followin. Cough and shortness of breath. I am most suspicious that Mr. Lam is having a mild congestive heart failure exacerbation today. He has no fever. He has no significant leukocytosis and his chest x-ray does not reveal an infiltrate, therefore making pneumonia less likely. He is not wheezing on my examination today, though his auscultation of his lungs is overall inhabited by his body habitus. He does; however, have mild pulmonary vascular congestion on the chest x- ray and 2 to 3+ pitting edema in his lower extremities. Plan to treat with IV Lasix and reassess in the morning. I do note that Mr. Lam has an allergy to OLIVIA INHIBITORS, both FOSINOPRIL and LISINOPRIL on his allergy list here at the hospital, but he had been started on LISINOPRIL at the alf , I question whether or not he could be having a cough related to the LISINOPRIL and we will discontinue that now. 2. Type 2 diabetes. Plan to check blood glucoses q.a.c. with lispro sliding scale and the patient will continue on his home Lantus. Plan to hold metformin. 3. Hypertension. Continue metoprolol. 4. DVT prophylaxis, heparin subcu. 5. Disposition to telemetry unit for observation. 6. Elevated troponin. The patient's troponin is minimally elevated. Plan to recheck in 3 hours. The patient will be monitored on telemetry unit while we are monitoring his troponins. He is chest pain free. 7. Code status is full code. TIME SPENT: Approximately 60 minutes was spent on the admission of this patient , more than half time spent with the patient at the bedside reviewing the events leading up to this hospitalization, performing the physical examination, and reviewing the plan of care. SCARLET HERNANDEZ NP CC: [facility] at [facility]* [id number]/[facility] #: [id number] LETY
[2016-07-10] MEDS ORDERED: Furosemide IV* 10 MG/ML VIAL (40 MG) ONE (23:24)
[2016-07-11] MEDS: Heparin VIAL(*) 5000 UNITS/ML VIAL (FIVE THOUSAND) SUBCUT SCH ×3 (06:02→22:16)
[2016-07-11] MEDS: Insulin LISPRO* 1 UNITS UNIT SUBCUT SCH ×3 (07:59→18:06)
[2016-07-11] MEDS: Furosemide IV* 10 MG/ML 10 ML VIAL (100 MG) IV SCH ×2 (08:04→18:05)
[2016-07-11] MEDS ORDERED: Lisinopril TAB* 5 MG PO SCH (09:00)
[2016-07-11] MEDS: Aspirin EC Low Dose* 81 MG TAB.EC PO SCH (09:17)
[2016-07-11] MEDS: Omeprazole CAP* 20 MG PO SCH (09:17)
[2016-07-11] MEDS: Metoprolol Tartrate TAB* 25 MG PO SCH ×2 (09:17→20:28)
[2016-07-11 09:19] LABS: BUN/Creatinine Ratio 32.8 (8-20); Calcium 8.8 mg/dL (8.6-10.3); EGFR African American 153.1 (>60); EGFR Non-African American 119.1 (>60); Potassium 4.4 mmol/L (3.5-5.0)
[2016-07-11] MEDS: Tiotropium CAP.INH* CAP.INH/18 MCG INH SCH (09:45)
--- NOTE | 2016-07-11 12:44 | PN ---
Subjective Date of Service: 07/11/16 Interval History: Mr. Lam states that he feels fine and is annoyed that he is asked so many questions. He denies chest pain, SOB, nausea, or abdominal pain. He feels that his breathing is at baseline. Objective Active Medications: Acetaminophen (Tylenol Tab*) 650 mg PO Q6H PRN Albuterol (Ventolin 2.5 Mg/3 Ml Neb.Alecia*) 2.5 mg INH Q4H PRN Aripiprazole (Abilify Tab*) 20 mg PO QPM [facility] Aspirin (Aspirin Ec Low Dose*) 81 mg PO DAILY [facility] Dextrose (D50w Syringe 50 Ml*) 12.5 gm IV PUSH .FOR FS < 60 - SS PRN Furosemide (Lasix Iv*) 60 mg IV 0800,1700 [facility] Heparin Sodium (Porcine) (Heparin Vial(*)) 5,000 units SUBCUT Q8HR [facility] Insulin Glargine (Lantus(*)) 48 units SUBCUT BEDTIME [facility] Insulin Human Lispro (Humalog*) 0 units SUBCUT AC [facility] Metoprolol Tartrate (Lopressor Tab*) 37.5 mg PO BID [facility] Morphine Sulfate (Morphine Inj (Syringe)*) 2 mg IV Q4H PRN Omeprazole (Prilosec Cap*) 40 mg PO 0730 [facility] Throat Lozenges (Chloraseptic Bernice*) 1 bernice MT TID PRN Tiotropium [place] (Spiriva Cap.Inh*) 1 cap INH DAILY [facility] Vital Signs 07/10/16 07/10/16 07/10/16 18:23 18:30 18:45 Temperature 98.6 F Pulse Rate 85 76 78 Respiratory 23 22 25 Rate Blood Pressure 139/85 154/82 143/72 (mmHg) O2 Sat by Pulse 99 85 87 Oximetry 07/10/16 07/10/16 07/10/16 19:00 19:14 19:50 Temperature 98.9 F Pulse Rate 84 Respiratory 24 29 Rate Blood Pressure 143/70 (mmHg) O2 Sat by Pulse 89 91 Oximetry 07/10/16 07/10/16 07/10/16 20:13 21:00 21:16 Temperature Pulse Rate 104 93 Respiratory 21 22 21 Rate Blood Pressure 165/73 177/104 141/62 (mmHg) O2 Sat by Pulse 84 88 Oximetry 07/10/16 07/10/16 07/10/16 22:00 23:00 23:23 Temperature Pulse Rate 93 86 88 Respiratory 22 26 21 Rate Blood Pressure 146/61 146/72 (mmHg) O2 Sat by Pulse 95 95 83 Oximetry 07/10/16 07/11/16 07/11/16 23:28 00:00 00:02 Temperature 97.7 F Pulse Rate 84 79 Respiratory 20 20 Rate Blood Pressure 133/56 (mmHg) O2 Sat by Pulse 97 97 Oximetry 07/11/16 07/11/16 07/11/16 01:00 01:03 01:07 Temperature Pulse Rate 63 78 80 Respiratory 19 24 21 Rate Blood Pressure 82/49 74/60 86/67 (mmHg) O2 Sat by Pulse 97 84 86 Oximetry 07/11/16 07/11/16 07/11/16 01:12 02:00 03:00 Temperature Pulse Rate 111 74 95 Respiratory 22 17 31 Rate Blood Pressure 116/56 98/44 122/43 (mmHg) O2 Sat by Pulse 90 97 71 Oximetry 07/11/16 07/11/16 07/11/16 04:00 04:27 05:00 Temperature 98.1 F Pulse Rate 70 70 Respiratory 19 17 Rate Blood Pressure 112/51 79/37 (mmHg) O2 Sat by Pulse 91 100 Oximetry 07/11/16 07/11/16 07/11/16 05:03 05:06 06:00 Temperature Pulse Rate 71 72 76 Respiratory 18 16 17 Rate Blood Pressure 100/44 (mmHg) O2 Sat by Pulse 100 100 99 Oximetry 07/11/16 07/11/16 07/11/16 06:03 07:00 07:41 Temperature 97.8 F Pulse Rate 76 72 Respiratory 18 16 Rate Blood Pressure 92/32 122/62 (mmHg) O2 Sat by Pulse 99 100 Oximetry 07/11/16 07/11/16 07/11/16 07:58 08:00 08:47 Temperature Pulse Rate 84 Respiratory 21 26 Rate Blood Pressure (mmHg) O2 Sat by Pulse 98 98 98 Oximetry 07/11/16 07/11/16 07/11/16 09:00 10:00 10:48 Temperature Pulse Rate 85 56 67 Respiratory 25 20 19 Rate Blood Pressure 146/68 120/97 (mmHg) O2 Sat by Pulse 92 94 99 Oximetry 07/11/16 07/11/16 11:00 11:31 Temperature 98.1 F Pulse Rate 65 Respiratory 23 Rate Blood Pressure 111/95 (mmHg) O2 Sat by Pulse 100 Oximetry Oxygen Devices in Use Now: Nasal Cannula Appearance: Obese male lying in bed in NAD Ears/Nose/Mouth/Throat: Mucous Membranes Moist Neck: Trachea Midline Respiratory: Symmetrical Chest Expansion and Respiratory Effort, - - Diminished Cardiovascular: NL Sounds; No Murmurs; No JVD, No Edema Abdominal: NL Sounds; No Tenderness; No Distention Extremities: - - +2 edema Skin: No Rash or Ulcers Neurological: Alert and Oriented x 3, NL Muscle Strength and Tone Nutrition: Taking PO's Result Diagrams: 07/10/16 12:45 07/11/16 05:10 Additional Lab and Data: Lab Results 07/10/16 07/10/16 07/10/16 Range/Units 12:45 12:45 12:45 WBC 11.9 H (3.5-10.8) 10^3/ul RBC 4.14 (4.0-5.4) 10^6/ul Hgb 12.0 L (14.0-18.0) g/dl Hct 39 L (42-52) % MCV 95 H (80-94) fL MCH 29 (27-31) pg MCHC 30 L (31-36) g/dl RDW 15 (10.5-15) % Plt Count 162 (150-450) 10^3/ul MPV 9 (7.4-10.4) um3 Neut % (Auto) 84.0 H (38-83) % Lymph % (Auto) 7.1 L (25-47) % [place] % (Auto) 7.5 (1-9) % Eos % (Auto) 0.8 (0-6) % Baso % (Auto) 0.6 (0-2) % Absolute Neuts (auto) 10.0 H (1.5-7.7) 10^3/ul Absolute Lymphs (auto) 0.8 L (1.0-4.8) 10^3/ul Absolute Monos (auto) 0.9 H (0-0.8) 10^3/ul Absolute Eos (auto) 0.1 (0-0.6) 10^3/ul Absolute Basos (auto) 0.1 (0-0.2) 10^3/ul Absolute Nucleated RBC 0.01 10^3/ul Nucleated RBC % 0 INR (Anticoag Therapy) 0.90 (0.89-1.11) APTT 26.8 (26.0-36.3) seconds Sodium 140 (133-145) mmol/L Potassium 4.3 (3.5-5.0) mmol/L Chloride 89 L (101-111) mmol/L Carbon Dioxide Pending Anion Gap Pending BUN 21 (6-24) mg/dL Creatinine 0.66 L (0.67-1.17) mg/dL Est GFR ( Amer) 155.8 (>60) Est GFR (Non-Af Amer) 121.1 (>60) BUN/Creatinine Ratio 31.8 H (8-20) Glucose 89 (70-100) mg/dL Lactic Acid (0.5-2.0) mmol/L Calcium 9.5 (8.6-10.3) mg/dL Total Bilirubin 0.30 (0.2-1.0) mg/dL AST 33 (13-39) U/L ALT 56 H (7-52) U/L Alkaline Phosphatase 86 (34-104) U/L Troponin I 0.04 H* (<0.04) ng/mL B-Natriuretic Peptide ( - 100) pg/mL Total Protein 7.3 (6.4-8.9) g/dL Albumin 4.0 (3.2-5.2) g/dL Globulin 3.3 (2-4) g/dL Albumin/Globulin Ratio 1.2 (1-3) Urine Color Urine Appearance Urine pH (5-9) Ur Specific [place] (1.010-1.030) Urine Protein (Negative) Urine Ketones (Negative) Urine Blood (Negative) Urine Nitrate (Negative) Urine Bilirubin (Negative) Urine Urobilinogen (Negative) Ur Leukocyte Esterase (Negative) Urine WBC (Auto) (Absent) Urine RBC (Auto) (Absent) Ur Squamous Epith Cells (Absent) Urine Bacteria (Absent) Hyaline Casts (Absent) Urine Glucose (Negative) 07/10/16 07/10/16 07/10/16 Range/Units 12:45 12:45 12:50 WBC (3.5-10.8) 10^3/ul RBC (4.0-5.4) 10^6/ul Hgb (14.0-18.0) g/dl Hct (42-52) % MCV (80-94) fL MCH (27-31) pg MCHC (31-36) g/dl RDW (10.5-15) % Plt Count (150-450) 10^3/ul MPV (7.4-10.4) um3 Neut % (Auto) (38-83) % Lymph % (Auto) (25-47) % [place] % (Auto) (1-9) % Eos % (Auto) (0-6) % Baso % (Auto) (0-2) % Absolute Neuts (auto) (1.5-7.7) 10^3/ul Absolute Lymphs (auto) (1.0-4.8) 10^3/ul Absolute Monos (auto) (0-0.8) 10^3/ul Absolute Eos (auto) (0-0.6) 10^3/ul Absolute Basos (auto) (0-0.2) 10^3/ul Absolute Nucleated RBC 10^3/ul Nucleated RBC % INR (Anticoag Therapy) (0.89-1.11) APTT (26.0-36.3) seconds Sodium (133-145) mmol/L Potassium (3.5-5.0) mmol/L Chloride (101-111) mmol/L Carbon Dioxide Anion Gap BUN (6-24) mg/dL Creatinine (0.67-1.17) mg/dL Est GFR ( Amer) (>60) Est GFR (Non-Af Amer) (>60) BUN/Creatinine Ratio (8-20) Glucose (70-100) mg/dL Lactic Acid 1.5 (0.5-2.0) mmol/L Calcium (8.6-10.3) mg/dL Total Bilirubin (0.2-1.0) mg/dL AST (13-39) U/L ALT (7-52) U/L Alkaline Phosphatase (34-104) U/L Troponin I (<0.04) ng/mL B-Natriuretic Peptide 272 H ( - 100) pg/mL Total Protein (6.4-8.9) g/dL Albumin (3.2-5.2) g/dL Globulin (2-4) g/dL Albumin/Globulin Ratio (1-3) Urine Color Yellow Urine Appearance Clear Urine pH 5.0 (5-9) Ur Specific [place] 1.009 L (1.010-1.030) Urine Protein 1+(30 mg/dl) H (Negative) Urine Ketones Negative (Negative) Urine Blood Negative (Negative) Urine Nitrate Negative (Negative) Urine Bilirubin Negative (Negative) Urine Urobilinogen Negative (Negative) Ur Leukocyte Esterase Negative (Negative) Urine WBC (Auto) Absent (Absent) Urine RBC (Auto) Absent (Absent) Ur Squamous Epith Cells Present H (Absent) Urine Bacteria Absent (Absent) Hyaline Casts Present H (Absent) Urine Glucose Negative (Negative) Assess/Plan/Problems-Billing Assessment: Mr. Lam is a 65 yo male with a PMH of chronic hypercapnic respiratory failure with COPD and LIZANDRO on 6-10L NC routinely as well as IDDM and chronic diastolic heart failure who was admitted on 07/10/16 with shortness of breath suspected to be secondary to CHF exacerbation. - Patient Problems (1) Acute on chronic diastolic (congestive) heart failure Comment: Patient feels that he is much improved since admission. Difficult to measure urine output as patient is incontinent at times. Continue IV lasix today. BUN/Cr stable. (2) COPD (chronic obstructive pulmonary disease) Comment: No evidence of acute exacerbation, but he has severe disease at baseline. Continue 6L supp O2 and BiPAP at when sleeping. Cont inhaled therapies. (3) Chronic dissection of thoracic aorta Comment: CTA 04/18 showed chronic dissection of thoracic and abdominal aorta through to the R external iliac artery. Patient has no complaints of pain. (4) HTN (hypertension) Comment: Normotensive. (5) History of pulmonary embolism Comment: IVC filter in place. (6) IDDM (insulin dependent diabetes mellitus) Comment: BGs well controlled. Hold metformin and continue lantus with SSI coverage for meals. (7) DVT prophylaxis Comment: Heparin SQ. Status and Disposition: Inpatient. Anticipate discharge to [facility] when medically stable.
[2016-07-11] MEDS: ARIPiprazole TAB* 20 MG PO SCH (18:05)
[2016-07-11] MEDS: Insulin GLARGINE(*) 1 UNITS UNIT SUBCUT SCH (20:28)
[2016-07-12 05:38] LABS: BUN/Creatinine Ratio 36.2 (8-20); Calcium 9.4 mg/dL (8.6-10.3); EGFR Non-African American 115.1 (>60); Potassium 4.6 mmol/L (3.5-5.0)
[2016-07-12] MEDS: Heparin VIAL(*) 5000 UNITS/ML VIAL (FIVE THOUSAND) SUBCUT SCH ×3 (05:45→22:11)
[2016-07-12] MEDS: Insulin LISPRO* 1 UNITS UNIT SUBCUT SCH ×3 (08:40→18:00)
[2016-07-12] MEDS: Omeprazole CAP* 20 MG PO SCH (08:55)
[2016-07-12] MEDS: Furosemide IV* 10 MG/ML 10 ML VIAL (100 MG) IV SCH (08:55)
[2016-07-12] MEDS: Aspirin EC Low Dose* 81 MG TAB.EC PO SCH (08:56)
[2016-07-12] MEDS: Metoprolol Tartrate TAB* 25 MG PO SCH ×2 (08:56→21:07)
[2016-07-12] MEDS: Tiotropium CAP.INH* CAP.INH/18 MCG INH SCH (09:20)
--- NOTE | 2016-07-12 10:47 | PN ---
Subjective Date of Service: 07/12/16 Interval History: Patient seen and examined at bedside. Denies fever, chills, chest discomfort, N/ V/D. Pt states that he has some shortness of breath. Pt didn't wear BiPAP overnight as he was unable to tolerate for more than a few minutes at a time, and was placed on the BiPAP approximately 45 minutes ago. Discussed with Pt getting a Palliative Care consult and he is agreeable. Pt doesn't want to be intubated and completed a MOLST yesterday. Pt uses 6L of oxygen at the retirement. 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 Family History: Unchanged from Admission Social History: Unchanged from Admission Past Medical History: Unchanged from Admission Objective Active Medications: Acetaminophen (Tylenol Tab*) 650 mg PO Q6H PRN Reason: PAIN Albuterol (Ventolin 2.5 Mg/3 Ml Neb.Alecia*) 2.5 mg INH Q4H PRN Reason: SOB/ WHEEZING Aripiprazole (Abilify Tab*) 20 mg PO QPM [facility] Aspirin (Aspirin Ec Low Dose*) 81 mg PO DAILY [facility] Dextrose (D50w Syringe 50 Ml*) 12.5 gm IV PUSH .FOR FS < 60 - SS PRN Reason: FS < 60 Furosemide (Lasix Iv*) 60 mg IV 0800,1700 [facility] Heparin Sodium (Porcine) (Heparin Vial(*)) 5,000 units SUBCUT Q8HR [facility] Insulin Glargine (Lantus(*)) 48 units SUBCUT BEDTIME [facility] Insulin Human Lispro (Humalog*) 0 units SUBCUT AC [facility] Reason: Protocol Metoprolol Tartrate (Lopressor Tab*) 37.5 mg PO BID [facility] Morphine Sulfate (Morphine Inj (Syringe)*) 2 mg IV Q4H PRN Reason: PAIN - MILD Omeprazole (Prilosec Cap*) 40 mg PO 0730 [facility] Throat Lozenges (Chloraseptic Bernice*) 1 bernice MT TID PRN Reason: SORE THROAT Tiotropium [place] (Spiriva Cap.Inh*) 1 cap INH DAILY [facility] Vital Signs 07/11/16 07/11/16 07/11/16 10:48 11:00 11:31 Temperature 98.1 F Pulse Rate 67 65 Respiratory 19 23 Rate Blood Pressure 120/97 111/95 (mmHg) O2 Sat by Pulse 99 100 Oximetry 07/11/16 07/11/16 07/11/16 12:00 13:00 14:00 Temperature Pulse Rate 70 63 78 Respiratory 18 18 21 Rate Blood Pressure (mmHg) O2 Sat by Pulse 96 91 91 Oximetry 07/11/16 07/11/16 07/11/16 14:07 15:00 16:00 Temperature Pulse Rate 84 70 Respiratory 25 31 22 Rate Blood Pressure 122/52 (mmHg) O2 Sat by Pulse 92 100 Oximetry 07/11/16 07/11/16 07/11/16 16:17 17:00 18:00 Temperature 97.9 F Pulse Rate 62 87 Respiratory 16 30 Rate Blood Pressure (mmHg) O2 Sat by Pulse 98 93 Oximetry 07/11/16 07/11/16 07/11/16 19:00 19:47 20:00 Temperature 98.6 F Pulse Rate 89 92 Respiratory 20 32 20 Rate Blood Pressure 162/70 133/59 (mmHg) O2 Sat by Pulse 98 97 98 Oximetry 07/11/16 07/11/16 07/11/16 21:00 22:00 22:20 Temperature Pulse Rate 65 66 Respiratory 20 23 24 Rate Blood Pressure 111/94 110/55 (mmHg) O2 Sat by Pulse 97 100 Oximetry 07/11/16 07/11/16 07/12/16 23:00 23:52 00:00 Temperature 97.6 F Pulse Rate 75 80 Respiratory 28 25 Rate Blood Pressure (mmHg) O2 Sat by Pulse 97 95 Oximetry 07/12/16 07/12/16 07/12/16 00:02 01:00 02:00 Temperature Pulse Rate 76 73 85 Respiratory 28 19 25 Rate Blood Pressure 144/55 103/44 119/90 (mmHg) O2 Sat by Pulse 95 98 97 Oximetry 07/12/16 07/12/16 07/12/16 02:31 03:00 04:00 Temperature 96.9 F Pulse Rate 75 88 Respiratory 15 24 Rate Blood Pressure (mmHg) O2 Sat by Pulse 92 99 98 Oximetry 07/12/16 07/12/16 07/12/16 04:09 04:20 05:00 Temperature Pulse Rate 85 Respiratory 22 23 Rate Blood Pressure 173/73 134/48 (mmHg) O2 Sat by Pulse 98 Oximetry 07/12/16 07/12/16 07/12/16 05:26 06:00 06:07 Temperature Pulse Rate 77 90 Respiratory 17 25 Rate Blood Pressure 124/50 123/48 (mmHg) O2 Sat by Pulse 97 96 Oximetry 07/12/16 07/12/16 07/12/16 07:00 07:27 08:00 Temperature 97.5 F Pulse Rate 77 75 Respiratory 20 18 Rate Blood Pressure 109/35 98/50 (mmHg) O2 Sat by Pulse 98 96 Oximetry 07/12/16 07/12/16 09:00 10:00 Temperature Pulse Rate 88 Respiratory 24 23 Rate Blood Pressure 111/85 (mmHg) O2 Sat by Pulse 97 Oximetry Oxygen Devices in Use Now: Nasal Cannula Eyes: No Scleral Icterus Respiratory: Symmetrical Chest Expansion and Respiratory Effort, Clear to Auscultation - , diminished Cardiovascular: NL Sounds; No Murmurs; No JVD, RRR Abdominal: NL Sounds; No Tenderness; No Distention Extremities: No Edema Skin: No Rash or Ulcers Neurological: NL Muscle Strength and Tone, - - Alert and Oriented to Person and Place Lines/Tubes/Other Access: Clean, Dry and Intact Peripheral IV - site benign Nutrition: Taking PO's Result Diagrams: 07/10/16 12:45 07/12/16 05:10 Additional Lab and Data: Assess/Plan/Problems-Billing Assessment: Mr. Lam is a 65 yo male with a PMH of chronic hypercapnic respiratory failure with COPD and LIZANDRO on 6-10L NC routinely as well as IDDM and chronic diastolic heart failure who was admitted on 07/10/16 with shortness of breath suspected to be secondary to CHF exacerbation. - Patient Problems (1) Acute on chronic diastolic (congestive) heart failure Code(s): I50.33 - ACUTE ON CHRONIC DIASTOLIC (CONGESTIVE) HEART FAILURE SNOMED Code(s): 021000003 Comment: - Patient feels that his breathing is about the same. - Difficult to measure urine output as patient is incontinent at times. - Will discontinue IV lasix today. - BUN/Cr stable. (2) COPD (chronic obstructive pulmonary disease) Code(s): J44.9 - CHRONIC OBSTRUCTIVE PULMONARY DISEASE, UNSPECIFIED SNOMED Code(s): 59903206 Comment: - No evidence of acute exacerbation, but he has severe disease at baseline. - Continue 6L supp O2 and BiPAP at when sleeping. - Continue inhaled therapies. - Will get a palliative care consult (3) Chronic respiratory failure Code(s): J96.10 - CHRONIC RESPIRATORY FAILURE, UNSP W HYPOXIA OR HYPERCAPNIA SNOMED Code(s): 22399564 Comment: - Hypercarbic and hypoxic secondary to COPD - Review of previous records show serum HCO3 consistently at 44-48, he is fully compensated at this time and this is likely his chronic state - HC03 is 58 today. Now with acute on chronic hypercarbic resp failure - Continue trail of BiPAP (4) Chronic dissection of thoracic aorta Code(s): I71.01 - DISSECTION OF THORACIC AORTA SNOMED Code(s): 063417084 Comment: - Chronic - CTA 04/18 showed chronic dissection of thoracic and abdominal aorta through to the R external iliac artery. - Patient has no complaints of pain. (5) HTN (hypertension) Code(s): I10 - ESSENTIAL (PRIMARY) HYPERTENSION SNOMED Code(s): 92121551 Comment: - Normotensive. (6) History of pulmonary embolism Code(s): Z86.711 - PERSONAL HISTORY OF PULMONARY EMBOLISM SNOMED Code(s): 845431858 Comment: - IVC filter in place. 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 - Hold metformin - Continue lantus with SSI coverage for meals. (8) DVT prophylaxis Code(s): QTO1306 - SNOMED Code(s): 181544944 Comment: - Heparin SQ. (9) DNR (do not resuscitate) Status and Disposition: Inpatient. Anticipate discharge back to [facility] [place] when medically stable. Case reviewed and discussed with Dr. Amaro.
[2016-07-12] MEDS: Morphine INJ* 2 MG/ML 1 ML SYRINGE IV PRN ×3 (12:31→22:45)
[2016-07-12] MEDS ORDERED: LORazepam INJ* 2 MG/ML 1 ML VIAL ONE (12:44)
--- NOTE | 2016-07-12 15:13 | PN ---
Progress Note - Progress Note Note: CRITICAL CARE MEDICINE Date: 07/12/16 Time: 1400 Patient seen and discussed with WINTER INTERN this am, and with multidisciplinary rounds members, including nursing, respiratory therapy, pharmacy, nutrition, social and spiritual care this am, and discussed with Palliative care. Agree with cyanide case hardener findings and assessment. Vital signs: Reviewed. PE: Agitated, distant tones, on bipap, distant and course lung sounds with chronic crackles, obese abd, ext warm LABS: Reviewed. IMAGING: Reviewed. MEDICATIONS: Reviewed. ASSESSMENT/PLAN: 65 M Acute on chronic hypercarbic and hypoxic respiratory failure with end stage COPD , and offered trilogy needs back in April by Pulmonary given his chronic severity and multilevel needs with max oupt O2 use already with concomitant obesity, LIZANDRO, OHS, diastolic and cor pulmonale dysfx. Pt had lucid conversation with both nursing and WINTER INTERN yesterday indicating DNR/DNI status. Worsening dynamics today despite attempted poor adherence with BIPAP therapies and discrepancies of his capacity and desires arouse. Palliative care discussed with pts previous Proxy pts brother Rene and ICU asked to discuss with him as well surrounding medical therapies and best medical advice. I discussed with eRne Lam ([phone]) over the phone as it does not seem that patient has full capacity, certainly not given his acute on chronic resp failure, bipap dependent at present with worsening hypercarbia and metabolic alkalosis as well as mediations required. Pt has been agitated mutilple times and remains nonadherent with bipap. Worrisome for continued failure. When discussing with pts brother, he expresses that his brother [Pt] has been hospitalized several times and has seemed to rebound and he is hopefully that could still be the case and agrees with continued care as he believes that is what pt would want. He explains that even over the last several weeks pts mentation had been getting worse and we would question whether chronic hypoxia or hypercarbia was playing a role then. He also expresses understanding that pt would not want intubation as this would not benefit him, pt would not want a trach, and pt had always expressed that he would not want to be dependent on machines. We did discuss pt becoming dependent on the bipap machine and there may be discrepancies there of his adherence and desires, but we would continue such for now and hope for an opportunity to improve. If unable to improve then he understands comfort measures alone without bipap may be the best course. Again, he expresses understandings of these dynamics and believes they are consistent with his brothers desires, supporting further pts lack of capacitance today and would continue best medical care for him presently and honor his DNR/DNI with trials of bipap currently. Further plan and care per WINTER INTERN Axel's note and orders. Supportive and preventative care as ordered. Disposition: ICU Code Status: DNR/DNI Critical Care Time: 30min FLuma Amaro DO
--- NOTE | 2016-07-12 16:49 | CONS ---
PALLIATIVE CARE CONSULTATION: DATE OF CONSULT: 07/12/16 PRIMARY CARE PHYSICIAN: [facility], Radha Kong NP. REFERRING PHYSICIAN: Carolina Reeves NP HOSPITAL COURSE: This is a 65-year-old male with a past medical history of COPD with chronic hypercapnic respiratory failure, who uses 6 L continuous during the day and 8 to 10 L continuous at night as well as BiPAP, who presented to the emergency room from [facility] for cough and shortness of breath. I did speak with Radha Kong NP, from [facility], who states over the past 2 weeks, he has been noncompliant with his BiPAP. He has been explained at length the importance of being compliant and the concern for respiratory failure. She also had discussion of code status with him and he at that time stated that he wanted to be a full code. On admission to the hospital, he was placed in the intensive care unit. They thought there was some mild congestive heart failure. He was given Lasix. He was compliant briefly with his BiPAP, but most of the night, he did not wear it. On the morning of the , there was concern for more agitation, restlessness, and tachypnea and Palliative Care consult was placed. Also of note on the , the SAXOPHONE TEACHER, Ally, and mid level Scarlet Hernandez, had a code status talk with him and he stated that he did not want to be intubated or resuscitated and his MOLST form was updated to reflect this. At that time, the patient held the capacity to make that decision. On my encounter, the patient' s capacity is questionable. He is not sure where he is. At first, he denied any shortness of breath and then admitted to it. He did tell me he wanted to be intubated, but again, I questioned his capacity as he was not able to tell me where he was or why he was in the hospital. Prior to his admission, his baseline was ambulating with a walker and mostly he spends most of his day in front of a computer. As mentioned, has a history of psych disorder and has had issues with noncompliance in the past. He was living mostly in [place], was getting all of the services there including [facility] there, but however, he was getting frequent admissions for pneumonia, and due to noncompliance, there was concern about needing a higher level of care and he was transferred to [facility] in March. I was able to get in touch with the brother, Rene Lam, who lives in [place], who states that he was designated the proxy at one point. Then, the patient got mad at him and he is the next of kin in addition to 2 sisters. The brother commented that he would want to be aggressive with him if there was a chance for him to get back to his baseline. As mentioned, unable to obtain reliable review of systems. PAST MEDICAL HISTORY: 1. Diabetes. 2. COPD with chronic hypercapnic respiratory failure, on BiPAP at night, as mentioned noncompliant, 6 L of oxygen during the day and 8 to 10 at night. 3. Hyperlipidemia. 4. GERD. 5. Hypertension. 6. History of bipolar disorder. 7. History of diastolic congestive heart failure with an EF of 50% to 55%. 8. History of PE with IV filter in place. 9. 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 INPATIENT MEDICATIONS: 1. Aripiprazole 20 mg in the evening. 2. Tylenol 650 mg every 6 hours as needed. 3. Albuterol 2.5 mg every 4 hours as needed. 4. Aspirin 81 mg daily. 5. Benzocaine/menthol lozenges t.i.d. as needed. 6. Heparin 5000 units subcu q.8 hours. 7. Lantus 48 units at bedtime. 8. Lispro sliding scale. 9. Lorazepam 1 mg q.4 hours as needed for anxiety, agitation. 10. Metoprolol 37.5 mg p.o. b.i.d. 11. Morphine 2 mg q.2 hours as needed for air hunger. 12. Omeprazole 40 mg daily. 13. Tiotropium 1 cap inhaled daily. ALLERGIES: CIMETIDINE, ERYTHROMYCIN, FOSINOPRIL, CONTRAST IODINE, LISINOPRIL, PENICILLIN, SULFA, TOMATO, IVP DYE. FAMILY HISTORY: Unable to obtain. SOCIAL HISTORY: As mentioned, the patient resides at [facility]. He was ambulating and interactive at baseline. He had capacity per medical staff on the that he stated he wanted to be a DNR/DNI. His designated surrogate decision maker is the next of kin, which is his brother, Rene Lam. Phone number is [phone]. REVIEW OF SYSTEMS: Unable to obtain due to the patient's respiratory distress and altered mental status. LABORATORY DATA: White count 11.9, hemoglobin 12, hematocrit 39, platelets 162. INR 0.9. Sodium 141, potassium 4.6, chloride 86, bicarb 58, BUN 25, creatinine 0.69, glucose 119. RADIOGRAPHIC DATA: Chest x-ray: Mild vascular congestion. ASSESSMENT: This is a 65-year-old male with a past medical history of chronic obstructive pulmonary disease with chronic hypercapnic respiratory failure, noncompliant on his BiPAP and a history of mental health disorder, who presents from [facility] with shortness of breath, now with worsening respiratory failure. I did speak with Rene Lam, the brother, at length and he is concerned about how ill he is and not trying to intubate him. I spoke with Dr. Amaro as well regarding the futility of intubation. Dr. Amaro feels that he would be unable to extubate him due to his severe end-stage chronic obstructive pulmonary disease. Regardless of his code status, the patient is eligible for hospice with terminal diagnosis of end-stage chronic obstructive pulmonary disease. At this point, Dr. Amaro is going to talk with the brother to determine the futility of intubating him. At this point, after revisiting the patient, he now appears now more comfortable and settled with more morphine and Ativan, and we will try to continue that as well as continuing the BiPAP to see if he is able to recover through this event. If he continues to decline or be uncomfortable, I would readdress with the brother to discuss more comfort measures. At this time, though, he does seem comfortable. Thank you for this consultation. I will follow along with you. PATIENT TIME: Greater than 100 minutes was spent doing the consultation, more than half the time spent was in direct patient contact. Additional time was spent discussing the MOLST and advanced care planning with the surrogate decision maker, more than half that time was spent in direct patient contact and determining capacity of the individual. CC: [facility], Radha Kong NP* [id number]/CPS #: [id number] [facility]
[2016-07-12] MEDS: LORazepam INJ* 2 MG/ML 1 ML VIAL IV PUSH PRN ×2 (18:06→23:45)
[2016-07-12] MEDS: ARIPiprazole TAB* 20 MG PO SCH (18:10)
[2016-07-12] MEDS: Insulin GLARGINE(*) 1 UNITS UNIT SUBCUT SCH (21:09)
[2016-07-12] MEDS: Dextrose 50% Syringe 50 ML* 25 GM/50 ML SYRINGE IV PUSH PRN (21:09)
[2016-07-12] MEDS ORDERED: Insulin GLARGINE(*) 1 UNITS UNIT SUBCUT ONE (22:00)
[2016-07-13] MEDS: Dextrose 50% Syringe 50 ML* 25 GM/50 ML SYRINGE IV PUSH PRN ×2 (00:23→05:02)
[2016-07-13] MEDS: Morphine INJ* 2 MG/ML 1 ML SYRINGE IV PRN (03:57)
[2016-07-13] MEDS: Heparin VIAL(*) 5000 UNITS/ML VIAL (FIVE THOUSAND) SUBCUT SCH ×3 (06:14→21:42)
[2016-07-13 06:35] LABS: BUN/Creatinine Ratio 45.8 (8-20); Calcium 9.1 mg/dL (8.6-10.3); EGFR Non-African American 174.9 (>60)
[2016-07-13] MEDS: Insulin LISPRO* 1 UNITS UNIT SUBCUT SCH ×3 (07:52→20:47)
--- NOTE | 2016-07-13 08:11 | PN ---
Subjective Date of Service: 07/13/16 Interval History: Patient seen and examined at bedside. Pt is lethargic this morning, but will answer some questions. Denies pain at this time. He also reports that his breathing is improved this morning. monitoring analyst: Sinus arrhythmia, rate 60-90's. Family History: Unchanged from Admission Social History: Unchanged from Admission Past Medical History: Unchanged from Admission Objective Active Medications: Acetaminophen (Tylenol Tab*) 650 mg PO Q6H PRN Reason: PAIN Albuterol (Ventolin 2.5 Mg/3 Ml Neb.Alecia*) 2.5 mg INH Q4H PRN Reason: SOB/ WHEEZING Aripiprazole (Abilify Tab*) 20 mg PO QPM [place] Aspirin (Aspirin Ec Low Dose*) 81 mg PO [facility] Dextrose (D50w Syringe 50 Ml*) 12.5 gm IV PUSH .FOR FS < 60 - SS PRN Reason: FS < 60 Heparin Sodium (Porcine) (Heparin Vial(*)) 5,000 units SUBCUT Q8HR [place] Insulin Human Lispro (Humalog*) 0 units SUBCUT AC [place] Reason: Protocol Lorazepam (Ativan Inj*) 1 mg IV PUSH Q4H PRN Reason: ANXIETY Metoprolol Tartrate (Lopressor Tab*) 37.5 mg PO BID [place] Morphine Sulfate (Morphine Inj (Syringe)*) 2 mg IV Q2H PRN Reason: PAIN - MILD Omeprazole (Prilosec Cap*) 40 mg PO 07[facility] Throat Lozenges (Chloraseptic Bernice*) 1 bernice MT TID PRN Reason: SORE THROAT Tiotropium [place] (Spiriva Cap.Inh*) 1 cap INH [facility] Vital Signs 07/12/16 07/12/16 07/12/16 09:00 10:00 10:10 Temperature Pulse Rate 88 64 Respiratory 24 27 Rate Blood Pressure 111/85 117/78 (mmHg) O2 Sat by Pulse 97 89 Oximetry 07/12/16 07/12/16 07/12/16 11:00 12:00 12:02 Temperature 98.1 F 98.3 F Pulse Rate 74 68 Respiratory 25 28 Rate Blood Pressure 121/105 140/61 (mmHg) O2 Sat by Pulse 78 78 Oximetry 07/12/16 07/12/16 07/12/16 12:31 13:00 13:15 Temperature Pulse Rate Respiratory 29 21 16 Rate Blood Pressure 114/49 (mmHg) O2 Sat by Pulse Oximetry 07/12/16 07/12/16 07/12/16 14:00 15:00 16:00 Temperature 97.8 F Pulse Rate 76 74 73 Respiratory 18 20 26 Rate Blood Pressure 103/44 108/43 117/56 (mmHg) O2 Sat by Pulse 88 93 96 Oximetry 07/12/16 07/12/16 07/12/16 16:32 17:00 17:03 Temperature Pulse Rate 61 73 Respiratory 21 20 21 Rate Blood Pressure 87/37 90/38 (mmHg) O2 Sat by Pulse 94 96 Oximetry 07/12/16 07/12/16 07/12/16 17:54 18:00 18:03 Temperature Pulse Rate 81 78 73 Respiratory 25 23 28 Rate Blood Pressure 106/30 101/33 (mmHg) O2 Sat by Pulse 96 96 95 Oximetry 07/12/16 07/12/16 07/12/16 18:06 19:00 19:04 Temperature Pulse Rate 79 72 Respiratory 21 19 22 Rate Blood Pressure 86/23 (mmHg) O2 Sat by Pulse 95 95 Oximetry 07/12/16 07/12/16 07/12/16 19:06 19:10 19:43 Temperature Pulse Rate 77 79 83 Respiratory 20 18 19 Rate Blood Pressure 83/27 98/38 (mmHg) O2 Sat by Pulse 96 95 90 Oximetry 07/12/16 07/12/16 07/12/16 20:00 21:00 22:00 Temperature 97.4 F Pulse Rate 78 61 Respiratory 19 20 23 Rate Blood Pressure 88/36 91/70 88/49 (mmHg) O2 Sat by Pulse 96 96 Oximetry 07/12/16 07/12/16 07/12/16 22:05 22:45 23:00 Temperature Pulse Rate 64 82 Respiratory 22 24 24 Rate Blood Pressure 93/49 87/52 (mmHg) O2 Sat by Pulse 98 96 Oximetry 07/12/16 07/12/16 07/12/16 23:07 23:45 23:54 Temperature Pulse Rate 71 80 Respiratory 25 24 24 Rate Blood Pressure (mmHg) O2 Sat by Pulse 98 98 Oximetry 07/13/16 07/13/16 07/13/16 00:00 00:02 00:04 Temperature Pulse Rate 67 67 71 Respiratory 22 21 26 Rate Blood Pressure 125/56 (mmHg) O2 Sat by Pulse 98 98 98 Oximetry 07/13/16 07/13/16 07/13/16 01:00 02:00 03:00 Temperature Pulse Rate 80 71 80 Respiratory 24 24 22 Rate Blood Pressure 108/42 128/54 122/68 (mmHg) O2 Sat by Pulse 97 98 97 Oximetry 07/13/16 07/13/16 07/13/16 03:57 04:00 05:00 Temperature 98.7 F Pulse Rate 82 79 Respiratory 24 32 21 Rate Blood Pressure 154/78 146/54 (mmHg) O2 Sat by Pulse 98 96 Oximetry 07/13/16 07/13/16 07/13/16 06:00 07:00 07:27 Temperature 99 F Pulse Rate 97 81 Respiratory 24 22 Rate Blood Pressure 134/50 112/50 (mmHg) O2 Sat by Pulse 98 95 Oximetry Oxygen Devices in Use Now: CPAP/BiPAP - BiPAP Appearance: NAD, laying in bed with eyes closed Respiratory: Symmetrical Chest Expansion and Respiratory Effort, Clear to Auscultation - , diminished Cardiovascular: NL Sounds; No Murmurs; No JVD, RRR Abdominal: NL Sounds; No Tenderness; No Distention Extremities: No Edema Skin: No Rash or Ulcers Neurological: - - Alert to Person and Place Lines/Tubes/Other Access: Clean, Dry and Intact Peripheral IV - site benign Nutrition: Taking PO's Result Diagrams: 07/10/16 12:45 07/13/16 06:00 Additional Lab and Data: Assess/Plan/Problems-Billing Assessment: Mr. Lam is a 65 yo male with a PMH of chronic hypercapnic respiratory failure with COPD and LIZANDRO on 6-10L NC routinely as well as IDDM and chronic diastolic heart failure who was admitted on 07/10/16 with shortness of breath suspected to be secondary to CHF exacerbation. - Patient Problems (1) Acute on chronic diastolic (congestive) heart failure Code(s): I50.33 - ACUTE ON CHRONIC DIASTOLIC (CONGESTIVE) HEART FAILURE SNOMED Code(s): 008454606 Comment: - Patient feels that his breathing improved today. - Difficult to measure urine output as patient is incontinent at times. - BUN/Cr stable. - Continue to hold lasix, will consider restarting in the AM (2) COPD (chronic obstructive pulmonary disease) Code(s): J44.9 - CHRONIC OBSTRUCTIVE PULMONARY DISEASE, UNSPECIFIED SNOMED Code(s): 42134538 Comment: - No evidence of acute exacerbation, but he has severe disease at baseline. - 6L supplemtal O2 and BiPAP at when sleeping at baseline. - Continue inhaled therapies. - Palliative care consult, input appreciated. - Continue BiPAP (3) Chronic respiratory failure Code(s): J96.10 - CHRONIC RESPIRATORY FAILURE, UNSP W HYPOXIA OR HYPERCAPNIA SNOMED Code(s): 75806210 Comment: - Hypercarbic and hypoxic secondary to COPD - Review of previous records show serum HCO3 consistently at 44-48, he is fully compensated at this time and this is likely his chronic state - HC03 is 52 today. Now with acute on chronic hypercarbic resp failure - Continue trail of BiPAP (4) Chronic dissection of thoracic aorta Code(s): I71.01 - DISSECTION OF THORACIC AORTA SNOMED Code(s): 918235866 Comment: - Chronic - CTA 04/18 showed chronic dissection of thoracic and abdominal aorta through to the R external iliac artery. - Patient has no complaints of pain. (5) HTN (hypertension) Code(s): I10 - ESSENTIAL (PRIMARY) HYPERTENSION SNOMED Code(s): 54053803 Comment: - Normotensive. (6) History of pulmonary embolism Code(s): Z86.711 - PERSONAL HISTORY OF PULMONARY EMBOLISM SNOMED Code(s): 668706448 Comment: - IVC filter in place. 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 (9) DNR (do not resuscitate) Status and Disposition: Inpatient. Anticipate discharge back to [facility] [place] when medically stable. Case reviewed and discussed with Dr. Amaro.
[2016-07-13] MEDS: Tiotropium CAP.INH* CAP.INH/18 MCG INH SCH (09:28)
[2016-07-13] MEDS: Omeprazole CAP* 20 MG PO SCH (09:37)
[2016-07-13] MEDS: Metoprolol Tartrate TAB* 25 MG PO SCH ×2 (09:38→21:16)
[2016-07-13] MEDS: Aspirin EC Low Dose* 81 MG TAB.EC PO SCH (09:38)
[2016-07-13] MEDS: LORazepam INJ* 2 MG/ML 1 ML VIAL IV PUSH PRN ×2 (10:51→23:17)
[2016-07-13] MEDS: ARIPiprazole TAB* 20 MG PO SCH (18:03)
[2016-07-13] MEDS ORDERED: Insulin GLARGINE(*) 1 UNITS UNIT SUBCUT SCH (21:00)
[2016-07-13] MEDS ORDERED: Metoprolol Tartrate IV* 1 MG/ML 5 ML VIAL IV PRN (21:26)
[2016-07-14] MEDS: Morphine INJ* 2 MG/ML 1 ML SYRINGE IV PRN ×3 (00:02→20:46)
[2016-07-14] MEDS ORDERED: LORazepam INJ* 2 MG/ML 1 ML VIAL IV PUSH ONE (00:11)
[2016-07-14] MEDS ORDERED: LORazepam INJ* 2 MG/ML 1 ML VIAL ONE (00:12)
[2016-07-14] MEDS: LORazepam INJ* 2 MG/ML 1 ML VIAL IV PUSH PRN ×3 (03:19→21:56)
[2016-07-14] MEDS: Heparin VIAL(*) 5000 UNITS/ML VIAL (FIVE THOUSAND) SUBCUT SCH ×3 (05:41→21:21)
[2016-07-14] MEDS: Insulin LISPRO* 1 UNITS UNIT SUBCUT SCH ×3 (07:27→18:01)
[2016-07-14] MEDS: Omeprazole CAP* 20 MG PO SCH (08:25)
[2016-07-14] MEDS: Metoprolol Tartrate TAB* 25 MG PO SCH ×2 (08:26→21:21)
[2016-07-14] MEDS: Aspirin EC Low Dose* 81 MG TAB.EC PO SCH (08:26)
[2016-07-14] MEDS: Tiotropium CAP.INH* CAP.INH/18 MCG INH SCH (08:27)
[2016-07-14 08:34] LABS: Hematocrit 39 % (42-52); Hemoglobin 11.9 g/dl (14.0-18.0); Mean Corpuscular HGB Conc 31 g/dl (31-36); Mean Corpuscular Hemoglobin 30 pg (27-31); Mean Corpuscular Volume 96 fL (80-94); Mean Platelet Volume 9 um3 (7.4-10.4); Red Blood Count 4.01 10^6/ul (4.0-5.4); Red Cell Distribution Width 15 % (10.5-15); White Blood Count 8.7 10^3/ul (3.5-10.8)
[2016-07-14 08:59] LABS: BUN/Creatinine Ratio 41.3 (8-20); Calcium 9.4 mg/dL (8.6-10.3); EGFR African American 236.3 (>60); EGFR Non-African American 183.7 (>60); Potassium 4.2 mmol/L (3.5-5.0)
--- NOTE | 2016-07-14 14:05 | PN ---
Subjective Date of Service: 07/14/16 Interval History: Patient seen and examined at bedside. Pt denies fever, chills, chest discomfort , N/V/D. Pt states that his breathing has improved, but is unable to say if it is at his baseline. Cardiac monitoring: Sinus rhythm, rate 80's. Family History: Unchanged from Admission Social History: Unchanged from Admission Past Medical History: Unchanged from Admission Objective Active Medications: Acetaminophen (Tylenol Tab*) 650 mg PO Q6H PRN Reason: PAIN Albuterol (Ventolin 2.5 Mg/3 Ml Neb.Alecia*) 2.5 mg INH Q4H PRN Reason: SOB/ WHEEZING Aripiprazole (Abilify Tab*) 20 mg PO QPM [place] Aspirin (Aspirin Ec Low Dose*) 81 mg PO DAILY [facility] Dextrose (D50w Syringe 50 Ml*) 12.5 gm IV PUSH .FOR FS < 60 - SS PRN Reason: FS < 60 Heparin Sodium (Porcine) (Heparin Vial(*)) 5,000 units SUBCUT Q8HR [place] Insulin Human Lispro (Humalog*) 0 units SUBCUT AC [facility] Reason: Protocol Lorazepam (Ativan Inj*) 1 mg IV PUSH Q4H PRN Reason: ANXIETY Metoprolol Tartrate (Lopressor Tab*) 37.5 mg PO BID [place] Metoprolol Tartrate (Lopressor Iv*) 5 mg IV Q6H PRN Reason: BLOOD PRESSURE Morphine Sulfate (Morphine Inj (Syringe)*) 2 mg IV Q2H PRN Reason: PAIN - MILD Omeprazole (Prilosec Cap*) 40 mg PO 0730 [facility] Throat Lozenges (Chloraseptic Bernice*) 1 bernice MT TID PRN Reason: SORE THROAT Tiotropium [place] (Spiriva Cap.Inh*) 1 cap INH DAILY [facility] Vital Signs 07/13/16 07/13/16 07/13/16 14:00 15:00 15:16 Temperature Pulse Rate 83 Respiratory 25 Rate Blood Pressure 94/36 162/66 172/86 (mmHg) O2 Sat by Pulse 95 Oximetry 07/13/16 07/13/16 07/13/16 16:00 17:00 17:52 Temperature 99.0 F Pulse Rate 82 72 Respiratory 23 22 22 Rate Blood Pressure 164/70 105/43 (mmHg) O2 Sat by Pulse 95 96 Oximetry 07/13/16 07/13/16 07/13/16 18:00 19:00 19:06 Temperature Pulse Rate 86 98 Respiratory 33 22 Rate Blood Pressure 169/83 156/70 (mmHg) O2 Sat by Pulse 97 97 Oximetry 07/13/16 07/13/16 07/13/16 20:00 21:00 22:00 Temperature 98.5 F Pulse Rate 90 Respiratory 21 20 22 Rate Blood Pressure 127/73 112/60 127/69 (mmHg) O2 Sat by Pulse 98 97 Oximetry 07/13/16 07/13/16 07/13/16 23:00 23:03 23:17 Temperature Pulse Rate 75 87 Respiratory 20 33 44 Rate Blood Pressure 92/69 (mmHg) O2 Sat by Pulse 96 96 Oximetry 07/14/16 07/14/16 07/14/16 00:00 00:02 00:03 Temperature 97.7 F Pulse Rate 84 Respiratory 51 17 23 Rate Blood Pressure 116/91 (mmHg) O2 Sat by Pulse 94 96 Oximetry 07/14/16 07/14/16 07/14/16 00:15 01:00 02:00 Temperature Pulse Rate 84 Respiratory 39 23 22 Rate Blood Pressure 128/67 125/56 (mmHg) O2 Sat by Pulse 99 Oximetry 07/14/16 07/14/16 07/14/16 03:00 03:19 03:41 Temperature Pulse Rate 77 Respiratory 22 30 22 Rate Blood Pressure (mmHg) O2 Sat by Pulse 96 Oximetry 07/14/16 07/14/16 07/14/16 04:00 05:00 05:36 Temperature 97.5 F Pulse Rate 89 79 Respiratory 29 22 19 Rate Blood Pressure 138/83 90/26 (mmHg) O2 Sat by Pulse 95 95 Oximetry 07/14/16 07/14/16 07/14/16 05:50 06:00 07:00 Temperature Pulse Rate 81 81 Respiratory 21 21 30 Rate Blood Pressure 100/45 89/39 99/48 (mmHg) O2 Sat by Pulse 95 96 Oximetry 07/14/16 07/14/16 07/14/16 07:54 07:57 08:00 Temperature 98 F Pulse Rate 83 76 Respiratory 21 20 Rate Blood Pressure 147/64 133/56 (mmHg) O2 Sat by Pulse 95 97 Oximetry 07/14/16 07/14/16 07/14/16 09:00 09:58 10:00 Temperature Pulse Rate 73 79 77 Respiratory 23 23 31 Rate Blood Pressure 159/73 143/67 (mmHg) O2 Sat by Pulse 96 88 86 Oximetry 07/14/16 07/14/16 07/14/16 11:00 12:00 12:06 Temperature 99.2 F Pulse Rate 80 84 89 Respiratory 25 21 25 Rate Blood Pressure 153/73 (mmHg) O2 Sat by Pulse 85 91 92 Oximetry 07/14/16 13:00 Temperature Pulse Rate 91 Respiratory 33 Rate Blood Pressure 141/74 (mmHg) O2 Sat by Pulse 79 Oximetry Oxygen Devices in Use Now: Nasal Cannula - 10 L Appearance: NAD, laying in bed Eyes: No Scleral Icterus Ears/Nose/Mouth/Throat: Mucous Membranes Moist Respiratory: Symmetrical Chest Expansion and Respiratory Effort, Clear to Auscultation - , diminished in bases, - - Some rhonchi bilateral in upper lobes that clear with cough Cardiovascular: NL Sounds; No Murmurs; No JVD, RRR Abdominal: NL Sounds; No Tenderness; No Distention Extremities: No Edema Skin: - - Vesicular rash to back and upper chest (shoulders) Neurological: NL Muscle Strength and Tone, - - Alert and Oriented to person and place Lines/Tubes/Other Access: Clean, Dry and Intact Peripheral IV - site benign Nutrition: Taking PO's Result Diagrams: 07/14/16 07:50 07/14/16 07:50 Additional Lab and Data: Assess/Plan/Problems-Billing Assessment: Mr. Lam is a 65 yo male with a PMH of chronic hypercapnic respiratory failure with COPD and LIZANDRO on 6-10L NC routinely as well as IDDM and chronic diastolic heart failure who was admitted on 07/10/16 with shortness of breath suspected to be secondary to CHF exacerbation. - Patient Problems (1) Acute on chronic diastolic (congestive) heart failure Code(s): I50.33 - ACUTE ON CHRONIC DIASTOLIC (CONGESTIVE) HEART FAILURE SNOMED Code(s): 580284253 Comment: - Patient feels that his breathing improved today. - Difficult to measure urine output as patient is incontinent at times. - BUN/Cr stable. - Continue to hold lasix (2) COPD (chronic obstructive pulmonary disease) Code(s): J44.9 - CHRONIC OBSTRUCTIVE PULMONARY DISEASE, UNSPECIFIED SNOMED Code(s): 97154045 Comment: - No evidence of acute exacerbation, but he has severe disease at baseline. - 6L supplemtal O2 and BiPAP at when sleeping at baseline. - Continue inhaled therapies. - Palliative care consult, input appreciated. - Trial salter NC O2 during the day and BiPAP at HS (3) Chronic respiratory failure Code(s): J96.10 - CHRONIC RESPIRATORY FAILURE, UNSP W HYPOXIA OR HYPERCAPNIA SNOMED Code(s): 22107769 Comment: - Hypercarbic and hypoxic secondary to COPD - Review of previous records show serum HCO3 consistently at 44-48, he is fully compensated and this is likely his chronic state - HC03 is 50 today. Now with acute on chronic hypercarbic resp failure - Continue salter NC during the day and BiPAP at HS (4) Chronic dissection of thoracic aorta Code(s): I71.01 - DISSECTION OF THORACIC AORTA SNOMED Code(s): 574100973 Comment: - Chronic - CTA 04/18 showed chronic dissection of thoracic and abdominal aorta through to the R external iliac artery. - Patient has no complaints of pain. (5) HTN (hypertension) Code(s): I10 - ESSENTIAL (PRIMARY) HYPERTENSION SNOMED Code(s): 50555804 Comment: - Normotensive at this time. (6) History of pulmonary embolism Code(s): Z86.711 - PERSONAL HISTORY OF PULMONARY EMBOLISM SNOMED Code(s): 207729599 Comment: - IVC filter in place. 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 (9) DNR (do not resuscitate) Status and Disposition: Inpatient. Anticipate discharge back to [facility] when medically stable. Case reviewed and discussed with Dr. Amaro.
--- NOTE | 2016-07-14 14:31 | PN ---
Progress Note - Progress Note Note: CRITICAL CARE MEDICINE Date: 07/14/16 Time: 1400 Patient discussed with SLP TEACHER after I recieved a phone call in the ICU from pts brother (Rene) asking to speak with me. We discussed pts current condition and plans that I discussed with resp care on rounds this am for his pilm care today and anticipating for the weekend. Brother expressed understanding of ongoing care and may come to visit to help sort longer term plans come the end of this weekend and pts sister may be coming next week. Further plan and care per ROC Reyna's note and orders. Disposition: ICU Code Status: DNR/DNI William Amaro DO
[2016-07-14] MEDS: ARIPiprazole TAB* 20 MG PO SCH (18:00)
[2016-07-15] MEDS: LORazepam INJ* 2 MG/ML 1 ML VIAL IV PUSH PRN ×5 (04:26→21:20)
[2016-07-15] MEDS: Heparin VIAL(*) 5000 UNITS/ML VIAL (FIVE THOUSAND) SUBCUT SCH ×3 (05:32→21:19)
[2016-07-15] MEDS: Morphine INJ* 2 MG/ML 1 ML SYRINGE IV PRN ×6 (05:33→21:23)
[2016-07-15 06:07] LABS: Calcium 9.5 mg/dL (8.6-10.3); EGFR African American 214.6 (>60); EGFR Non-African American 166.9 (>60); Potassium 4.6 mmol/L (3.5-5.0)
[2016-07-15] MEDS: Tiotropium CAP.INH* CAP.INH/18 MCG INH SCH (09:10)
[2016-07-15] MEDS: Omeprazole CAP* 20 MG PO SCH (09:24)
[2016-07-15] MEDS: Insulin LISPRO* 1 UNITS UNIT SUBCUT SCH ×3 (09:24→17:56)
[2016-07-15] MEDS: Aspirin EC Low Dose* 81 MG TAB.EC PO SCH (09:25)
[2016-07-15] MEDS: Metoprolol Tartrate TAB* 25 MG PO SCH (09:25)
--- NOTE | 2016-07-15 09:54 | PN ---
Subjective Date of Service: 07/15/16 Interval History: Patient seen and examined at bedside. Pt states that his breathing has improved today. Pt will not answer any other questions today. Per NSG staff Pt was only able to have BiPAP off for about 10 minutes before he desats and he was placed back on the BiPAP. vehicle monitor technician: Sinus rhythm, rate 80-90's. Family History: Unchanged from Admission Social History: Unchanged from Admission Past Medical History: Unchanged from Admission Objective Active Medications: Acetaminophen (Tylenol Tab*) 650 mg PO Q6H PRN Reason: PAIN Albuterol (Ventolin 2.5 Mg/3 Ml Neb.Alecia*) 2.5 mg INH Q4H PRN Reason: SOB/ WHEEZING Aripiprazole (Abilify Tab*) 20 mg PO QPM [place] Aspirin (Aspirin Ec Low Dose*) 81 mg PO DAILY [facility] Dextrose (D50w Syringe 50 Ml*) 12.5 gm IV PUSH .FOR FS < 60 - SS PRN Reason: FS < 60 Heparin Sodium (Porcine) (Heparin Vial(*)) 5,000 units SUBCUT Q8HR [facility] Insulin Human Lispro (Humalog*) 0 units SUBCUT AC [place] Reason: Protocol Lorazepam (Ativan Inj*) 1 mg IV PUSH Q4H PRN Reason: ANXIETY Metoprolol Tartrate (Lopressor Tab*) 37.5 mg PO BID [facility] Metoprolol Tartrate (Lopressor Iv*) 5 mg IV Q6H PRN Reason: BLOOD PRESSURE Morphine Sulfate (Morphine Inj (Syringe)*) 2 mg IV Q2H PRN Reason: PAIN - MILD Omeprazole (Prilosec Cap*) 40 mg PO 0730 [facility] Throat Lozenges (Chloraseptic Bernice*) 1 bernice MT TID PRN Reason: SORE THROAT Tiotropium [place] (Spiriva Cap.Inh*) 1 cap INH DAILY [facility] Vital Signs 07/14/16 07/14/16 07/14/16 09:58 10:00 11:00 Temperature Pulse Rate 79 77 80 Respiratory 23 31 25 Rate Blood Pressure 159/73 143/67 (mmHg) O2 Sat by Pulse 88 86 85 Oximetry 07/14/16 07/14/16 07/14/16 12:00 12:06 13:00 Temperature 99.2 F Pulse Rate 84 89 91 Respiratory 21 25 33 Rate Blood Pressure 153/73 141/74 (mmHg) O2 Sat by Pulse 91 92 79 Oximetry 07/14/16 07/14/16 07/14/16 14:00 15:00 15:38 Temperature 98.4 F Pulse Rate 94 83 Respiratory 30 24 Rate Blood Pressure 148/68 113/54 (mmHg) O2 Sat by Pulse 84 89 Oximetry 07/14/16 07/14/16 07/14/16 15:57 16:00 16:21 Temperature Pulse Rate 81 88 Respiratory 24 24 26 Rate Blood Pressure 91/71 145/73 (mmHg) O2 Sat by Pulse 89 90 91 Oximetry 07/14/16 07/14/16 07/14/16 17:00 17:02 17:26 Temperature Pulse Rate 95 Respiratory 27 34 34 Rate Blood Pressure 152/77 (mmHg) O2 Sat by Pulse 92 Oximetry 07/14/16 07/14/16 07/14/16 18:00 19:00 20:00 Temperature 99.1 F Pulse Rate 100 99 82 Respiratory 34 18 16 Rate Blood Pressure 142/75 141/33 97/45 (mmHg) O2 Sat by Pulse 91 89 93 Oximetry 07/14/16 07/14/16 07/14/16 20:46 21:00 21:26 Temperature Pulse Rate 95 93 Respiratory 30 33 32 Rate Blood Pressure 155/82 159/73 (mmHg) O2 Sat by Pulse 87 92 Oximetry 07/14/16 07/14/16 07/14/16 21:56 22:00 23:00 Temperature Pulse Rate 83 78 Respiratory 24 27 26 Rate Blood Pressure 134/62 130/76 (mmHg) O2 Sat by Pulse 93 91 Oximetry 07/14/16 07/15/16 07/15/16 23:33 00:00 00:01 Temperature 99.0 F Pulse Rate 74 80 74 Respiratory 26 27 28 Rate Blood Pressure 121/91 (mmHg) O2 Sat by Pulse 91 93 92 Oximetry 07/15/16 07/15/16 07/15/16 00:19 01:00 02:00 Temperature Pulse Rate 76 71 Respiratory 20 25 Rate Blood Pressure 100/53 99/47 (mmHg) O2 Sat by Pulse 90 93 95 Oximetry 07/15/16 07/15/16 07/15/16 03:00 04:00 04:26 Temperature 98.6 F Pulse Rate 77 74 Respiratory 24 24 24 Rate Blood Pressure 108/51 120/44 (mmHg) O2 Sat by Pulse 95 95 Oximetry 07/15/16 07/15/16 07/15/16 05:00 05:33 06:00 Temperature Pulse Rate 72 89 Respiratory 24 33 28 Rate Blood Pressure 140/66 161/57 (mmHg) O2 Sat by Pulse 95 95 Oximetry 07/15/16 07/15/16 07/15/16 07:00 07:40 08:00 Temperature 98.6 F Pulse Rate 85 83 Respiratory 23 22 Rate Blood Pressure 118/41 99/41 (mmHg) O2 Sat by Pulse 93 94 Oximetry 07/15/16 07/15/16 07/15/16 08:14 08:37 09:00 Temperature Pulse Rate 95 Respiratory 28 Rate Blood Pressure (mmHg) O2 Sat by Pulse 94 93 93 Oximetry 07/15/16 07/15/16 09:11 09:20 Temperature Pulse Rate Respiratory 30 31 Rate Blood Pressure (mmHg) O2 Sat by Pulse Oximetry Oxygen Devices in Use Now: CPAP/BiPAP Appearance: NAD, laying in bed Eyes: No Scleral Icterus Respiratory: Symmetrical Chest Expansion and Respiratory Effort, Clear to Auscultation - , diminished Cardiovascular: NL Sounds; No Murmurs; No JVD, RRR Abdominal: NL Sounds; No Tenderness; No Distention Extremities: No Edema Skin: - - Vesicular rash to upper chest and back improved today, less redness Neurological: Alert and Oriented x 3, NL Muscle Strength and Tone Lines/Tubes/Other Access: Clean, Dry and Intact Peripheral IV - site benign Nutrition: Taking PO's Result Diagrams: 07/14/16 07:50 07/15/16 05:35 Additional Lab and Data: Assess/Plan/Problems-Billing Assessment: Mr. Lam is a 65 yo male with a PMH of chronic hypercapnic respiratory failure with COPD and LIZANDRO on 6-10L NC routinely as well as IDDM and chronic diastolic heart failure who was admitted on 07/10/16 with shortness of breath suspected to be secondary to CHF exacerbation. - Patient Problems (1) Chronic respiratory failure Code(s): J96.10 - CHRONIC RESPIRATORY FAILURE, UNSP W HYPOXIA OR HYPERCAPNIA SNOMED Code(s): 61551537 Comment: - Hypercarbic and hypoxic secondary to COPD - Review of previous records show serum HCO3 consistently at 44-48, he is fully compensated and this is likely his chronic state - HC03 is 51 today. Now with acute on chronic hypercarbic resp failure - Continue salter NC during the day and BiPAP at HS as tolerated (2) Acute on chronic diastolic (congestive) heart failure Code(s): I50.33 - ACUTE ON CHRONIC DIASTOLIC (CONGESTIVE) HEART FAILURE SNOMED Code(s): 657858976 Comment: - Patient continues to feels that his breathing is improved. - Difficult to measure urine output as patient is incontinent at times. - BUN/Cr stable. - Continue to hold lasix (3) COPD (chronic obstructive pulmonary disease) Code(s): J44.9 - CHRONIC OBSTRUCTIVE PULMONARY DISEASE, UNSPECIFIED SNOMED Code(s): 64109151 Comment: - No evidence of acute exacerbation, but he has severe disease at baseline. - 6L supplemtal O2 and BiPAP at when sleeping at baseline. - Continue inhaled therapies. - Palliative care consult, input appreciated. - Trial salter NC O2 during the day and BiPAP at HS as tolerated (4) Chronic dissection of thoracic aorta Code(s): I71.01 - DISSECTION OF THORACIC AORTA SNOMED Code(s): 376481584 Comment: - Chronic - CTA 04/18 showed chronic dissection of thoracic and abdominal aorta through to the R external iliac artery. - Patient has no complaints of pain. (5) HTN (hypertension) Code(s): I10 - ESSENTIAL (PRIMARY) HYPERTENSION SNOMED Code(s): 41969592 Comment: - Normotensive at this time. (6) History of pulmonary embolism Code(s): Z86.711 - PERSONAL HISTORY OF PULMONARY EMBOLISM SNOMED Code(s): 478764007 Comment: - IVC filter in place. (7) IDDM (insulin dependent diabetes mellitus) Code(s): E11.9 - TYPE 2 DIABETES MELLITUS WITHOUT COMPLICATIONS; Z79.4 - EQUINE INTERN (CURRENT) USE OF INSULIN SNOMED Code(s): 64477243 Comment: - Hypoglycemia overnight and last evening - Hold metformin - Glucose 80-170's - Continue to hold lantus for now - Continue Lispro SSI coverage (8) DVT prophylaxis Code(s): WJD1008 - SNOMED Code(s): 849672586 Comment: - Heparin SQ. (9) DNR (do not resuscitate) Status and Disposition: Inpatient. Anticipate discharge back to [facility] [place] when medically stable.
--- NOTE | 2016-07-15 11:49 | PN ---
Progress Note - Progress Note Note: CRITICAL CARE MEDICINE Date: 07/15/16 Time: 1100 Patients brother (Rene) called again and I updated him on pts condition. He is planning to be here Sunday am and realizes there may and should be hospice and palliative discussions. William Amaro, DO
[2016-07-15] MEDS: ARIPiprazole TAB* 20 MG PO SCH (17:55)
[2016-07-15] MEDS: Metoprolol Tartrate IV* 1 MG/ML 5 ML VIAL IV SCH (18:38)
[2016-07-16] MEDS: Metoprolol Tartrate IV* 1 MG/ML 5 ML VIAL IV SCH ×4 (01:32→18:01)
[2016-07-16] MEDS: Morphine INJ* 2 MG/ML 1 ML SYRINGE IV PRN ×5 (01:54→14:39)
[2016-07-16] MEDS: LORazepam INJ* 2 MG/ML 1 ML VIAL IV PUSH PRN ×3 (01:54→21:43)
[2016-07-16 06:10] LABS: BUN/Creatinine Ratio 38.8 (8-20); Calcium 9.4 mg/dL (8.6-10.3); EGFR African American 219.7 (>60); EGFR Non-African American 170.8 (>60); Potassium 4.6 mmol/L (3.5-5.0)
[2016-07-16] MEDS: Heparin VIAL(*) 5000 UNITS/ML VIAL (FIVE THOUSAND) SUBCUT SCH ×3 (06:43→21:54)
[2016-07-16] MEDS: Insulin LISPRO* 1 UNITS UNIT SUBCUT SCH ×3 (08:00→18:01)
[2016-07-16] MEDS: Tiotropium CAP.INH* CAP.INH/18 MCG INH SCH (08:40)
[2016-07-16] MEDS: Aspirin EC Low Dose* 81 MG TAB.EC PO SCH (10:24)
[2016-07-16] MEDS: Omeprazole CAP* 20 MG PO SCH (10:24)
[2016-07-16] MEDS ORDERED: LORazepam INJ* 2 MG/ML 1 ML VIAL ONE (11:59)
--- NOTE | 2016-07-16 12:08 | PN ---
Subjective Date of Service: 07/16/16 Interval History: Patient seen and examined at bedside. Pt isn't answering questions this morning. Pt doesn't appear to be in distress. Cardiac monitoring: Sinus rhythm, rate 80's. Family History: Unchanged from Admission Social History: Unchanged from Admission Past Medical History: Unchanged from Admission Objective Active Medications: Acetaminophen (Tylenol Tab*) 650 mg PO Q6H PRN Reason: PAIN Albuterol (Ventolin 2.5 Mg/3 Ml Neb.Alecia*) 2.5 mg INH Q4H PRN Reason: SOB/ WHEEZING Aripiprazole (Abilify Tab*) 20 mg PO QPM [place] Aspirin (Aspirin Ec Low Dose*) 81 mg PO DAILY [facility] Dextrose (D50w Syringe 50 Ml*) 12.5 gm IV PUSH .FOR FS < 60 - SS PRN Reason: FS < 60 Heparin Sodium (Porcine) (Heparin Vial(*)) 5,000 units SUBCUT Q8HR [place] Insulin Human Lispro (Humalog*) 0 units SUBCUT AC [place] Lorazepam (Ativan Inj*) 1 mg IV PUSH Q4H PRN Reason: ANXIETY Metoprolol Tartrate (Lopressor Iv*) 5 mg IV Q6H [place] Morphine Sulfate (Morphine Inj (Syringe)*) 2 mg IV Q2H PRN Reason: PAIN - MILD Omeprazole (Prilosec Cap*) 40 mg PO 0730 [facility] Throat Lozenges (Chloraseptic Bernice*) 1 bernice MT TID PRN Reason: SORE THROAT Tiotropium [place] (Spiriva Cap.Inh*) 1 cap INH DAILY [facility] Vital Signs 07/15/16 07/15/16 07/15/16 12:00 12:21 12:51 Temperature Pulse Rate 91 Respiratory 28 24 49 Rate Blood Pressure 145/59 (mmHg) O2 Sat by Pulse 92 Oximetry 07/15/16 07/15/16 07/15/16 13:00 13:03 13:12 Temperature Pulse Rate 90 Respiratory 26 28 37 Rate Blood Pressure 136/73 (mmHg) O2 Sat by Pulse 90 88 Oximetry 07/15/16 07/15/16 07/15/16 14:00 14:03 14:15 Temperature Pulse Rate 112 Respiratory 25 30 32 Rate Blood Pressure 157/78 (mmHg) O2 Sat by Pulse 98 Oximetry 07/15/16 07/15/16 07/15/16 15:00 15:22 16:00 Temperature 99.7 F Pulse Rate 89 101 Respiratory 20 20 Rate Blood Pressure 148/62 171/72 (mmHg) O2 Sat by Pulse 92 91 Oximetry 07/15/16 07/15/16 07/15/16 17:00 17:44 17:57 Temperature Pulse Rate 89 Respiratory 23 32 32 Rate Blood Pressure 128/49 (mmHg) O2 Sat by Pulse 97 Oximetry 07/15/16 07/15/16 07/15/16 18:00 19:00 19:35 Temperature 97.8 F Pulse Rate 78 73 Respiratory 26 23 Rate Blood Pressure 130/79 131/56 (mmHg) O2 Sat by Pulse 93 98 Oximetry 07/15/16 07/15/16 07/15/16 20:00 21:00 21:20 Temperature Pulse Rate 77 88 Respiratory 23 29 22 Rate Blood Pressure 132/63 145/93 (mmHg) O2 Sat by Pulse 98 94 Oximetry 07/15/16 07/15/16 07/15/16 21:23 22:00 22:23 Temperature Pulse Rate 81 84 Respiratory 24 23 22 Rate Blood Pressure 116/41 (mmHg) O2 Sat by Pulse 98 98 Oximetry 07/15/16 07/15/16 07/16/16 23:00 23:50 00:00 Temperature 98.2 F Pulse Rate 85 92 Respiratory 21 25 Rate Blood Pressure 105/46 (mmHg) O2 Sat by Pulse 96 96 Oximetry 07/16/16 07/16/16 07/16/16 00:01 01:00 01:08 Temperature Pulse Rate 89 88 Respiratory 25 22 Rate Blood Pressure 130/61 118/47 (mmHg) O2 Sat by Pulse 95 100 90 Oximetry 07/16/16 07/16/16 07/16/16 01:54 02:00 03:00 Temperature Pulse Rate 93 89 Respiratory 22 24 23 Rate Blood Pressure 130/68 111/49 (mmHg) O2 Sat by Pulse 91 100 Oximetry 07/16/16 07/16/16 07/16/16 03:59 04:00 04:30 Temperature 97.5 F Pulse Rate 88 Respiratory 20 24 Rate Blood Pressure 124/47 (mmHg) O2 Sat by Pulse 97 Oximetry 07/16/16 07/16/16 07/16/16 05:00 06:00 06:46 Temperature Pulse Rate 90 93 94 Respiratory 22 22 28 Rate Blood Pressure 102/39 104/33 125/40 (mmHg) O2 Sat by Pulse 97 99 97 Oximetry 07/16/16 07/16/16 07/16/16 06:49 07:00 07:24 Temperature 98 F Pulse Rate 83 Respiratory 24 25 Rate Blood Pressure 132/81 (mmHg) O2 Sat by Pulse 92 Oximetry 07/16/16 07/16/16 07/16/16 08:00 08:02 09:00 Temperature Pulse Rate 88 91 Respiratory 26 23 31 Rate Blood Pressure (mmHg) O2 Sat by Pulse 81 86 Oximetry 07/16/16 07/16/16 07/16/16 10:00 11:00 11:40 Temperature 98 F Pulse Rate 92 93 Respiratory 26 22 Rate Blood Pressure 154/67 157/72 (mmHg) O2 Sat by Pulse 85 91 Oximetry Oxygen Devices in Use Now: CPAP/BiPAP Appearance: NAD, laying in bed Respiratory: Symmetrical Chest Expansion and Respiratory Effort, Clear to Auscultation Cardiovascular: NL Sounds; No Murmurs; No JVD, RRR Abdominal: NL Sounds; No Tenderness; No Distention Extremities: No Edema Skin: No Rash or Ulcers Neurological: - - Unable to determine orientation, Pt will not open eyes and will respond to few questions Lines/Tubes/Other Access: Clean, Dry and Intact Peripheral IV - site benign Nutrition: Taking PO's Result Diagrams: 07/14/16 07:50 07/16/16 05:48 Additional Lab and Data: Assess/Plan/Problems-Billing Assessment: Mr. Lam is a 65 yo male with a PMH of chronic hypercapnic respiratory failure with COPD and LIZANDRO on 6-10L NC routinely as well as IDDM and chronic diastolic heart failure who was admitted on 07/10/16 with shortness of breath suspected to be secondary to CHF exacerbation. - Patient Problems (1) Chronic respiratory failure Code(s): J96.10 - CHRONIC RESPIRATORY FAILURE, UNSP W HYPOXIA OR HYPERCAPNIA SNOMED Code(s): 23387913 Comment: - Hypercarbic and hypoxic secondary to COPD - Review of previous records show serum HCO3 consistently at 44-48, he is fully compensated and this is likely his chronic state - HC03 is 53 today. Now with acute on chronic hypercarbic resp failure - Continue BiPAP (2) Acute on chronic diastolic (congestive) heart failure Code(s): I50.33 - ACUTE ON CHRONIC DIASTOLIC (CONGESTIVE) HEART FAILURE SNOMED Code(s): 729101157 Comment: - Patient continues to feels that his breathing is improved. - Difficult to measure urine output as patient is incontinent at times. - BUN/Cr stable. - Continue to hold lasix (3) COPD (chronic obstructive pulmonary disease) Code(s): J44.9 - CHRONIC OBSTRUCTIVE PULMONARY DISEASE, UNSPECIFIED SNOMED Code(s): 16008837 Comment: - No evidence of acute exacerbation, but he has severe disease at baseline. - 6L supplemtal O2 and BiPAP at when sleeping at baseline. - Continue inhaled therapies. - Palliative care consult, input appreciated. - Continue BiPAP (4) Chronic dissection of thoracic aorta Code(s): I71.01 - DISSECTION OF THORACIC AORTA SNOMED Code(s): 202408468 Comment: - Chronic - CTA 04/18 showed chronic dissection of thoracic and abdominal aorta through to the R external iliac artery. - Patient has no complaints of pain. (5) HTN (hypertension) Code(s): I10 - ESSENTIAL (PRIMARY) HYPERTENSION SNOMED Code(s): 36021081 Comment: - Normotensive at this time. (6) History of pulmonary embolism Code(s): Z86.711 - PERSONAL HISTORY OF PULMONARY EMBOLISM SNOMED Code(s): 022746884 Comment: - IVC filter in place. (7) IDDM (insulin dependent diabetes mellitus) Code(s): E11.9 - TYPE 2 DIABETES MELLITUS WITHOUT COMPLICATIONS; Z79.4 - CULINARY DIRECTOR (CURRENT) USE OF INSULIN SNOMED Code(s): 42699121 Comment: - Hypoglycemia overnight and last evening - Hold metformin - Glucose 70-120's - Continue to hold lantus for now - Continue Lispro SSI coverage (8) DVT prophylaxis Code(s): LTO3237 - SNOMED Code(s): 585020539 Comment: - Heparin SQ. (9) DNR (do not resuscitate) Status and Disposition: Inpatient. Anticipate discharge back to [facility] when medically stable.
[2016-07-16] MEDS: ARIPiprazole TAB* 20 MG PO SCH (18:01)
[2016-07-17] MEDS: Insulin LISPRO* 1 UNITS UNIT SUBCUT SCH ×3 (00:17→11:14)
[2016-07-17] MEDS: Metoprolol Tartrate IV* 1 MG/ML 5 ML VIAL IV SCH ×5 (00:20→23:53)
[2016-07-17] MEDS: Morphine INJ* 2 MG/ML 1 ML SYRINGE IV PRN ×2 (02:43→14:36)
[2016-07-17 05:14] LABS: Calcium 9.3 mg/dL (8.6-10.3); EGFR African American 214.6 (>60); EGFR Non-African American 166.9 (>60); Potassium 4.6 mmol/L (3.5-5.0)
[2016-07-17] MEDS: Heparin VIAL(*) 5000 UNITS/ML VIAL (FIVE THOUSAND) SUBCUT SCH ×2 (06:05→14:36)
[2016-07-17] MEDS: Omeprazole CAP* 20 MG PO SCH (07:39)
[2016-07-17] MEDS: Aspirin EC Low Dose* 81 MG TAB.EC PO SCH (07:40)
[2016-07-17] MEDS: LORazepam INJ* 2 MG/ML 1 ML VIAL IV PUSH PRN ×2 (08:28→17:24)
--- NOTE | 2016-07-17 08:52 | PN ---
Subjective Date of Service: 07/17/16 Interval History: Patient seen and examined at bedside. Pt is nonverbal today and is not answering any questions. Pt appears to be comfortable in bed. [employer]: Sinus rhythm, rate 80-90's. Family History: Unchanged from Admission Social History: Unchanged from Admission Past Medical History: Unchanged from Admission Objective Active Medications: Acetaminophen (Tylenol Tab*) 650 mg PO Q6H PRN Reason: PAIN Albuterol (Ventolin 2.5 Mg/3 Ml Neb.Alecia*) 2.5 mg INH Q4H PRN Reason: SOB/ WHEEZING Aripiprazole (Abilify Tab*) 20 mg PO QPM [facility] Aspirin (Aspirin Ec Low Dose*) 81 mg PO DAILY [facility] Dextrose (D50w Syringe 50 Ml*) 12.5 gm IV PUSH .FOR FS < 60 - SS PRN Reason: FS < 60 Heparin Sodium (Porcine) (Heparin Vial(*)) 5,000 units SUBCUT Q8HR [facility] Insulin Human Lispro (Humalog*) 0 units SUBCUT Q6H [facility] Reason: Protocol Lorazepam (Ativan Inj*) 2 mg IV PUSH Q4H PRN Reason: ANXIETY Metoprolol Tartrate (Lopressor Iv*) 5 mg IV Q6H [facility] Morphine Sulfate (Morphine Inj (Syringe)*) 2 mg IV Q2H PRN Reason: PAIN - MILD Omeprazole (Prilosec Cap*) 40 mg PO 0730 [facility] Throat Lozenges (Chloraseptic Bernice*) 1 bernice MT TID PRN Reason: SORE THROAT Tiotropium [place] (Spiriva Cap.Inh*) 1 cap INH DAILY [facility] Vital Signs 07/16/16 07/16/16 07/16/16 09:00 10:00 11:00 Temperature Pulse Rate 91 92 93 Respiratory 31 26 22 Rate Blood Pressure 154/67 157/72 (mmHg) O2 Sat by Pulse 86 85 91 Oximetry 07/16/16 07/16/16 07/16/16 11:40 12:00 12:06 Temperature 98 F Pulse Rate 87 Respiratory 25 35 Rate Blood Pressure 174/88 (mmHg) O2 Sat by Pulse 89 Oximetry 07/16/16 07/16/16 07/16/16 13:00 14:00 14:39 Temperature Pulse Rate 74 77 Respiratory 23 23 28 Rate Blood Pressure 112/41 123/47 (mmHg) O2 Sat by Pulse 88 91 Oximetry 07/16/16 07/16/16 07/16/16 15:00 15:17 16:00 Temperature 98.5 F Pulse Rate 88 86 Respiratory 22 21 Rate Blood Pressure 129/55 129/47 (mmHg) O2 Sat by Pulse 91 93 Oximetry 07/16/16 07/16/16 07/16/16 17:00 18:00 19:00 Temperature Pulse Rate 92 98 82 Respiratory 28 28 32 Rate Blood Pressure 167/68 140/46 153/72 (mmHg) O2 Sat by Pulse 91 87 89 Oximetry 07/16/16 07/16/16 07/16/16 20:00 21:00 21:43 Temperature 97.8 F Pulse Rate 88 95 Respiratory 32 32 32 Rate Blood Pressure 146/69 175/81 (mmHg) O2 Sat by Pulse 85 85 Oximetry 07/16/16 07/16/16 07/16/16 22:00 22:12 23:00 Temperature Pulse Rate 94 88 97 Respiratory 30 20 30 Rate Blood Pressure 158/79 151/63 (mmHg) O2 Sat by Pulse 89 87 89 Oximetry 07/16/16 07/16/16 07/17/16 23:20 23:31 00:00 Temperature 98.6 F Pulse Rate 91 94 Respiratory 23 25 Rate Blood Pressure (mmHg) O2 Sat by Pulse 89 91 Oximetry 07/17/16 07/17/16 07/17/16 00:01 00:43 01:00 Temperature Pulse Rate 97 92 Respiratory 35 35 Rate Blood Pressure 142/91 149/73 (mmHg) O2 Sat by Pulse 91 89 92 Oximetry 07/17/16 07/17/16 07/17/16 02:00 02:43 03:00 Temperature Pulse Rate 94 88 Respiratory 31 32 22 Rate Blood Pressure 139/69 140/66 (mmHg) O2 Sat by Pulse 87 87 Oximetry 07/17/16 07/17/16 07/17/16 04:00 05:00 06:00 Temperature 98.5 F Pulse Rate 99 98 88 Respiratory 34 19 25 Rate Blood Pressure 155/80 169/79 136/71 (mmHg) O2 Sat by Pulse 89 88 92 Oximetry 07/17/16 07/17/16 07/17/16 07:00 07:35 08:00 Temperature 99.6 F Pulse Rate 87 92 Respiratory 32 26 30 Rate Blood Pressure 164/86 169/148 (mmHg) O2 Sat by Pulse 89 94 Oximetry Oxygen Devices in Use Now: CPAP/BiPAP Appearance: NAD, laying in bed Eyes: No Scleral Icterus Respiratory: Symmetrical Chest Expansion and Respiratory Effort, Clear to Auscultation - , diminished Cardiovascular: NL Sounds; No Murmurs; No JVD, RRR Abdominal: NL Sounds; No Tenderness; No Distention Extremities: - - Trace bilateral LE edema Neurological: NL Muscle Strength and Tone, - - Pt keeps eyes closed. Non-verbal Lines/Tubes/Other Access: Clean, Dry and Intact Peripheral IV - site benign Result Diagrams: 07/14/16 07:50 07/17/16 04:45 Additional Lab and Data: Assess/Plan/Problems-Billing Assessment: Mr. Lam is a 65 yo male with a PMH of chronic hypercapnic respiratory failure with COPD and LIZANDRO on 6-10L NC routinely as well as IDDM and chronic diastolic heart failure who was admitted on 07/10/16 with shortness of breath suspected to be secondary to CHF exacerbation. - Patient Problems (1) Chronic respiratory failure Code(s): J96.10 - CHRONIC RESPIRATORY FAILURE, UNSP W HYPOXIA OR HYPERCAPNIA SNOMED Code(s): 81462957 Comment: - Hypercarbic and hypoxic secondary to COPD - Review of previous records show serum HCO3 consistently at 44-48, he is fully compensated and this is likely his chronic state - HC03 is 47 today. Now with acute on chronic hypercarbic resp failure - Continue BiPAP - Re-eval by Palliative now that family has arrived pending (2) Acute on chronic diastolic (congestive) heart failure Code(s): I50.33 - ACUTE ON CHRONIC DIASTOLIC (CONGESTIVE) HEART FAILURE SNOMED Code(s): 226735245 Comment: - Patient continues to feels that his breathing is improved. - Difficult to measure urine output as patient is incontinent at times. - BUN/Cr stable. - Continue to hold lasix (3) COPD (chronic obstructive pulmonary disease) Code(s): J44.9 - CHRONIC OBSTRUCTIVE PULMONARY DISEASE, UNSPECIFIED SNOMED Code(s): 85526976 Comment: - No evidence of acute exacerbation, but he has severe disease at baseline. - 6L supplemtal O2 and BiPAP at when sleeping at baseline. - Continue inhaled therapies. - Palliative care consult, input appreciated. - Continue BiPAP (4) Chronic dissection of thoracic aorta Code(s): I71.01 - DISSECTION OF THORACIC AORTA SNOMED Code(s): 169064263 Comment: - Chronic - CTA 04/18 showed chronic dissection of thoracic and abdominal aorta through to the R external iliac artery. - Patient has no complaints of pain. (5) HTN (hypertension) Code(s): I10 - ESSENTIAL (PRIMARY) HYPERTENSION SNOMED Code(s): 50568643 Comment: - Normotensive to hypertensive at times. - Continue Metoprolol (6) History of pulmonary embolism Code(s): Z86.711 - PERSONAL HISTORY OF PULMONARY EMBOLISM SNOMED Code(s): 811035612 Comment: - IVC filter in place. (7) IDDM (insulin dependent diabetes mellitus) Code(s): E11.9 - TYPE 2 DIABETES MELLITUS WITHOUT COMPLICATIONS; Z79.4 - PRISON (CURRENT) USE OF INSULIN SNOMED Code(s): 72968764 Comment: - Hypoglycemia overnight and last evening - Hold metformin - Glucose 80-100's - Continue to hold lantus for now - Continue Lispro SSI coverage (8) DVT prophylaxis Code(s): PXB6452 - SNOMED Code(s): 400090073 Comment: - Heparin SQ. (9) DNR (do not resuscitate) Status and Disposition: Inpatient. Anticipate discharge back to [facility] when medically stable.
[2016-07-17] MEDS: Artificial Tears* 15 ML BTL BOTH EYES PRN ×2 (09:45→21:35)
[2016-07-17] MEDS: Tiotropium CAP.INH* CAP.INH/18 MCG INH SCH (11:12)
--- NOTE | 2016-07-17 14:27 | PN ---
Progress Note - Progress Note Note: I was asked to see this patient to discuss his situation with his brother, Rene. The patient has ES COPD and hypercapnic respiratory failure, and has been in [facility] for many months, chronically on 6-10 LPM O2 and with frequent hospitalizations for COPD exacerbations. He wants to return "home" to [facility] and should be referred for hospice services there, although apparently brother Rene was told by [facility] that Alex would not be eligible for hospice, which is not factual. The patient is currently maintaining a RR of 32 on nasal prongs only and O2 sat in low 90's. This may be close to his baseline. He has a prognosis of days to weeks. He can be discharged back to [facility] where he has BiPAP machine obtained by Dr. Wilson, and he will probably survive until his sister arrives from [place] in a day or two. His MOLST was updated to reflect his wishes to NOT return to the hospital and to have comfort measures only. I suggest changing his IV morphine to sublingual Roxanol, at 5 mg Q 6 h to relieve his dyspnea, and to provide this on a scheduled basis, holding for repsiratory depression only, as prn meds may be overlooked in the SNF setting.
[2016-07-17] MEDS: Morphine ORAL CONCENTRATE* 5 MG/0.25 ML ORAL.SYRIN SL SCH ×2 (18:10→23:50)
[2016-07-18 00:02] VITALS: BP 141/65
[2016-07-18] MEDS: Metoprolol Tartrate IV* 1 MG/ML 5 ML VIAL IV SCH ×3 (05:21→11:49)
[2016-07-18] MEDS: Morphine ORAL CONCENTRATE* 5 MG/0.25 ML ORAL.SYRIN SL SCH ×2 (06:03→11:52)
--- NOTE | 2016-07-18 08:35 | PN ---
Subjective Date of Service: 07/18/16 Interval History: Mr. Lam is sleeping peacefully at the time of my examination. Nursing staff and family do not have any concerns about his level of comfort this shift. Family History: Unchanged from Admission Social History: Unchanged from Admission Past Medical History: Unchanged from Admission Objective Active Medications: Albuterol (Ventolin 2.5 Mg/3 Ml Neb.Alecia*) 2.5 mg INH Q4H PRN Lorazepam (Ativan Inj*) 2 mg IV PUSH Q4H PRN Metoprolol Tartrate (Lopressor Iv*) 5 mg IV Q6H [facility] Morphine Sulfate (Morphine Oral Concentrate*) 5 mg SL Q6H [facility] Polyvinyl Alcohol (Polyvinyl Alcohol 1.4% Opth*) 1 drop BOTH EYES Q2H PRN Vital Signs 07/17/16 07/17/16 07/17/16 08:51 09:00 10:00 Temperature Pulse Rate 91 85 Respiratory 27 36 23 Rate Blood Pressure 148/67 139/61 112/49 (mmHg) O2 Sat by Pulse 92 95 Oximetry 07/17/16 07/17/16 07/17/16 11:00 12:00 13:00 Temperature 99.2 F Pulse Rate 90 90 96 Respiratory 22 35 26 Rate Blood Pressure 127/57 169/65 163/49 (mmHg) O2 Sat by Pulse 93 89 88 Oximetry 07/17/16 07/17/16 07/17/16 14:00 14:36 15:00 Temperature Pulse Rate 100 92 Respiratory 31 22 23 Rate Blood Pressure 170/108 142/86 (mmHg) O2 Sat by Pulse 90 89 Oximetry 07/17/16 07/17/16 07/17/16 15:39 15:50 16:00 Temperature 98.6 F Pulse Rate 99 Respiratory 24 Rate Blood Pressure 132/59 (mmHg) O2 Sat by Pulse 90 90 Oximetry 07/17/16 07/17/16 07/17/16 17:00 17:24 17:48 Temperature Pulse Rate 107 92 Respiratory 38 32 29 Rate Blood Pressure 116/92 128/91 (mmHg) O2 Sat by Pulse 91 88 Oximetry 07/17/16 07/17/16 07/17/16 18:00 19:00 20:00 Temperature 98.7 F Pulse Rate 95 96 97 Respiratory 29 24 28 Rate Blood Pressure 143/66 143/62 (mmHg) O2 Sat by Pulse 89 88 92 Oximetry 07/17/16 07/17/16 07/17/16 21:00 22:00 23:00 Temperature Pulse Rate 108 108 112 Respiratory 30 Rate Blood Pressure 162/73 (mmHg) O2 Sat by Pulse 88 89 87 Oximetry 07/17/16 07/18/16 07/18/16 23:51 00:00 00:02 Temperature 98.1 F Pulse Rate 107 92 92 Respiratory Rate Blood Pressure 141/65 (mmHg) O2 Sat by Pulse 87 88 87 Oximetry 07/18/16 07/18/16 07/18/16 01:00 02:00 02:13 Temperature Pulse Rate 96 96 Respiratory Rate Blood Pressure (mmHg) O2 Sat by Pulse 86 87 88 Oximetry 07/18/16 07/18/16 07/18/16 03:00 04:00 05:00 Temperature 97.7 F Pulse Rate 99 99 103 Respiratory Rate Blood Pressure (mmHg) O2 Sat by Pulse 83 84 84 Oximetry 07/18/16 08:00 Temperature 98.4 F Pulse Rate Respiratory Rate Blood Pressure (mmHg) O2 Sat by Pulse Oximetry Oxygen Devices in Use Now: Nasal Cannula Appearance: Male lying in bed in NAD Ears/Nose/Mouth/Throat: Mucous Membranes Moist Respiratory: Symmetrical Chest Expansion and Respiratory Effort Neurological: - - Sleeping peacefully Nutrition: Taking PO's Result Diagrams: 07/14/16 07:50 07/17/16 04:45 Additional Lab and Data: Assess/Plan/Problems-Billing Assessment: Mr. Lam is a 65 yo male with a PMH of chronic hypercapnic respiratory failure with COPD and LIZANDRO on 6-10L NC routinely as well as IDDM and chronic diastolic heart failure who was admitted on 07/10/16 with shortness of breath suspected to be secondary to CHF exacerbation. - Patient Problems (1) Need for comfort care Comment: Patient appears comfortable on current regimen. Continue routine morphine and lorazepam. Continue oxygen with Bipap as needed for comfort. Status and Disposition: Inpatient. Discharge to [facility] with comfort care.
--- NOTE | 2016-07-18 10:23 | DS ---
CC: Brenda * DATE OF ADMISSION: 07/10/2016. DATE OF DISCHARGE: 07/18/2016. ATTENDING PHYSICIAN: Dr. Gaston Astudillo *(dictation provided by Scarlet Hernandez NP) . PRIMARY DIAGNOSIS: Acute on chronic hypercapnic respiratory failure suspected secondary to CHF. SECONDARY DIAGNOSES: 1. Type 2 diabetes. 2. COPD. 3. Hyperlipidemia. 4. GERD. 5. Hypertension. 6. Bipolar disorder. 7. Chronic diastolic congestive heart failure. 8. History of PE with IVC filter in place. 9. Chronic dissection of thoracic abdominal aorta. MEDICATIONS AT THE TIME OF DISCHARGE: 1. Albuterol nebulizer prn. 2. Artificial Tears one drop both eyes as needed. 3. Lorazepam 2 mg p.o. q.4 hours prn anxiousness. 4. Morphine 5 mg sublingually q.6 hours scheduled and q.1 hour prn. HOSPITAL COURSE: Mr. Lam is a 65-year-old male with a past medical history as outlined above. He originally presented to the hospital on 07/10/2016 with shortness of breath and cough. Please see the dictated history and physical from myself for complete details. In brief, at the time of admission the patient had a chest x-ray concerning for mild pulmonary vascular congestion and a BNP of 272. He was admitted to the hospital with suspicion that perhaps his decompensation from his chronic respiratory failure was due to acute on chronic diastolic heart failure. Mr. Lam required transferred to the Intensive Care Unit later that evening for concern of worsening hypoxia. He continued on Oxygen and BiPAP in the ICU, but was short of breath, hypoxic and agitated intermittently. The patient stated he wanted to be DNR/DNI and this was completed with him. He had a consultation with the Palliative Care team who determined he was in fact eligible for hospice with terminal diagnosis of end-stage chronic COPD. Discussion were undertaken between the care team and Mr. Lam's family, specifically his brother Rene who ultimately decided that the patient should be made comfort care only. Mr. Lam is doing well today. He is quite comfortable on his current dose of Morphine. Plans will be for him to go back to [facility], which is his request for provision of comfort care. The palliative care team recommends that he have Morphine around the clock, as well as prn with Ativan as needed. The patient can continue on his oxygen and BiPAP as needed for comfort. DISPOSITION: To [facility]. DIET: Comfort care. ACTIVITY: As tolerated. FOLLOW-UP PLANS: Follow-up with hospice care or comfort care as provided through [facility]. Approximately 60 minutes were spent in the discharge of this patient, more than half that time was spent with the patient at the bedside reviewing the events leading up to this hospitalization, performing the physical examination and reviewing the plan of care. SCARLET HERNANDEZ NP [id number]/CPS #: [id number] LETY
[2016-07-18] MEDS: Artificial Tears* 15 ML BTL BOTH EYES PRN (11:44)
== END 2016-07-18 12:30 | DRG 291 ==
LOC: ED 11:18 → MEDTELE 13:42 → ICU 16:47 → OBSVTOIN 18:20
PROVIDERS: ADMIT Hospitalist; ATTEND Internal Medicine
PROC: 5A09557 Assistance with Respiratory Ventilation, Greater than 96 Consecutive Hours, Continuous Positive Airway Pressure (ICD-10-PCS; principal; 2016-07-10)
DX: I11.0 Hypertensive heart disease with heart failure (principal); I71.01 Dissection of thoracic aorta; I71.02 Dissection of abdominal aorta; J96.21 Acute and chronic respiratory failure with hypoxia; J96.22 Acute and chronic respiratory failure with hypercapnia; E66.2 Morbid (severe) obesity with alveolar hypoventilation; E87.3 Alkalosis; E78.00 Pure hypercholesterolemia, unspecified; K21.9 Gastro-esophageal reflux disease without esophagitis; J44.9 Chronic obstructive pulmonary disease, unspecified; I27.81 Cor pulmonale (chronic); M19.90 Unspecified osteoarthritis, unspecified site; I45.10 Unspecified right bundle-branch block; I50.33 Acute on chronic diastolic (congestive) heart failure; F31.9 Bipolar disorder, unspecified; E78.5 Hyperlipidemia, unspecified; D72.829 Elevated white blood cell count, unspecified; Z66 Do not resuscitate; I49.8 Other specified cardiac arrhythmias; E11.649 Type 2 diabetes mellitus with hypoglycemia without coma; R32 Unspecified urinary incontinence; Z51.5 Encounter for palliative care; Z88.8 Allergy status to other drugs, medicaments and biological substances; Z86.711 Personal history of pulmonary embolism; Z99.81 Dependence on supplemental oxygen; Z88.1 Allergy status to other antibiotic agents; Z88.0 Allergy status to penicillin; Z88.2 Allergy status to sulfonamides; Z91.041 Radiographic dye allergy status; Z91.018 Allergy to other foods; Z72.89 Other problems related to lifestyle; Z80.9 Family history of malignant neoplasm, unspecified; Z82.49 Family history of ischemic heart disease and other diseases of the circulatory system; Z83.6 Family history of other diseases of the respiratory system; Z87.891 Personal history of nicotine dependence; Z79.4 Long term (current) use of insulin; Z91.19 Patient's noncompliance with other medical treatment and regimen; Z68.36 Body mass index [BMI] 36.0-36.9, adult
CPT/HCPCS: 36415; 71010; 80048; 80053; 81003; 81015; 83605; 83880; 84484; 85025; 85610; 85730; 87641; 93005; 94640; 94660; 94760; A9270-GY; J1644; J1940; J2060; J2270; J7512